=== PATIENT | male | born 1985 | race Caucasian/White ===

== ENCOUNTER → 2017-10-17 | Emergency (ER) | payer OTHER ==
[~2017-10-17] VITALS: Ht 182.9 cm; Wt 104.3 kg
[~2017-10-17] MED LIST: AMITRIPTYLINE H10 MG PO; BACTRIM DS TAB1 EACH PO; CARAFATE1 GM/10 ML PO; CEPHALEXIN500 MG PO; CLINDAMYCIN HC300 MG PO; CYCLOBENZAPRINE10 MG PO; FLEXERIL10 MG PO; IBUPROFEN800 MG PO; KETOPROFEN75 MG PO; MEDROL4 M1 PO; METHOCARBAMOL500 MG PO; NAPROXEN500 MG PO; NORCO 5-325 TA1 EACH PO; NORCO 7.5-3251 EACH PO; ONDANSETRON ODT8 MG PO; OXYCODONE HCL10 MG PO; OXYCODONE-ACET1 EAC1 PO; PERCOCET 10-321 EACH PO; PERCOCET 5-3251 EACH PO; PROVENTIL HFA6.7 GM INH; PSEUDOEPHEDRINE60 MG PO; ROXICODONE15 MG PO; SEPTRA DS TABL1 EACH PO; SUBOXONE 8 MG-1 EAC1 SL; TAMSULOSIN HCL0.4 MG PO; TRAMADOL HCL50 MG PO; TRIAMCINOLONE A15 GM TOP; ULTRAM50 MG PO; VICODIN 5-5001 EACH PO; ZOFRAN4 MG PO; [UNRECOGNIZED DRUG - OTHER] TP
== END ==
LOC: ED 19:13
DX: R10.9 Unspecified abdominal pain (principal); Z87.442 Personal history of urinary calculi; F17.200 Nicotine dependence, unspecified, uncomplicated; Z88.0 Allergy status to penicillin; Z88.6 Allergy status to analgesic agent; Z88.1 Allergy status to other antibiotic agents; Z79.899 Other long term (current) drug therapy
CPT/HCPCS: 81001; 99283

== ENCOUNTER 2017-11-16 11:41 | Emergency (ER) | payer OTHER ==
[~2017-11-16] VITALS: Ht 182.9 cm; Wt 104.3 kg
[~2017-11-16 11:41] MED LIST changes: -IBUPROFEN800 MG PO; -ONDANSETRON ODT8 MG PO
[2017-11-16] MEDS ORDERED: IBUPROFEN800 MG PO (11:59)
[2017-11-16] MEDS ORDERED: ONDANSETRON ODT8 MG PO (14:48)
== END 2017-11-16 15:06 | disposition home or self-care (01) ==
LOC: ED 11:41
DX: M54.41 Lumbago with sciatica, right side (principal); F17.200 Nicotine dependence, unspecified, uncomplicated; Z87.442 Personal history of urinary calculi; Z86.19 Personal history of other infectious and parasitic diseases; Z88.0 Allergy status to penicillin; Z88.5 Allergy status to narcotic agent; Z88.1 Allergy status to other antibiotic agents
CPT/HCPCS: 80053; 81001; 85025; 96374; 99283; J2405; J7030

== ENCOUNTER 2018-12-03 00:05 | Emergency (ER) | payer OTHER ==
[~2018-12-03 00:05] MED LIST changes: +IBUPROFEN800 MG PO; +ONDANSETRON ODT8 MG PO
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
== END 2018-12-03 02:50 | disposition home or self-care (01) ==
LOC: ED 00:05
DX: T14.8XXA Other injury of unspecified body region, initial encounter (principal); V89.2XXA Person injured in unspecified motor-vehicle accident, traffic, initial encounter; Z87.891 Personal history of nicotine dependence; Z88.0 Allergy status to penicillin; Z88.6 Allergy status to analgesic agent; Z88.1 Allergy status to other antibiotic agents; Z79.899 Other long term (current) drug therapy
CPT/HCPCS: 70450; 71260; 72125; 73090; 73560; 74177; 80053; 82150; 82550; 83690; 85025; 86850; 86900; 86901; 99284-25; G0480; Q9967

== ENCOUNTER 2019-09-09 22:41 | Inpatient (IN) | payer OTHER ==
[~2019-09-09] VITALS: Ht 182.9 cm; Wt 150.9 kg
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
--- NOTE | 2019-09-10 00:55 | NUR ---
PT REPORT RECEIVED FROM ELECTRICAL APPLIANCE REPAIRER. PT BROUGHT TO CCU ON [employer]AYER WITH FELLER OPERATOR AND . PT HAS CELL PHONE AND CLOTHES, ALL OTHER BELONGINGS WITH .
--- NOTE | 2019-09-10 01:43 | NUR ---
INITIAL ASSESSMENT COMPLETED. PT HAS TEMPERATURE OF 103.2, HEART RATE AT 104 ON THE MONITOR. BLITATERAL LOWER LEGS HAVE 2+ EDEMA, REDDNESS, PAINFUL, AND WARM TO TOUCH. BOTH CALVES MEASURE 49 CM. REDDNESS TRAVELS UP INTO THIGHS. A REDDENED AREA ON INNER LEFT THIGH, AND INNER RIGHT THIGH BY GROIN. ALL REDDENED AREAS OUTLINED. PT ORIENTED TIME 4, BUT VERY DROWSY AND UNABLE TO STAY AWAKE FOR ASSESSMENT. ALL QUESTIONS ANSWERED BY . PRN TYLENOL GIVEN. CALL LIGHT WITHIN REACH. REMAINS AT BEDSIDE. WILL CONTINUE TO CLOSELY MONITOR.
--- NOTE | 2019-09-10 02:30 | NUR ---
PT STOOD TO VOID, 2 PERSON ASSIST REQUIRED. PT GOT WRAPPED IN HIS CORD AND BECAME UPSET. TOOK OFF GOWN AND BLOOD PRESSURE CUFF. BACK IN BED AT THIS TIME. BLOOD PRESSURE CUFF BACK ON. AT BEDSIDE. NO FURTHER NEEDS.
--- NOTE | 2019-09-10 04:19 | NUR ---
IN ROOM FOR ASSESSMENT. PT AWOKE FOR TEMPERATURE BUT SLEPT THROUGH THE REST OF ASSESSMENT. LUNGS SOUND DIMINISHED IN THE BASES. PT COLOR REMAINS FLUSHED, BUT NO LONGER DIAPHORETIC. RESPIRATIONS EVEN AND UNLABORED RR= 20. REMAINS AT BEDSIDE. CALL LIGHT WITHIN REACH. WILL CONTINUE TO MONITOR
--- NOTE | 2019-09-10 04:44 | NUR ---
PT STANDING AT BEDSIDE TO VOID. ONE PERSON STAND BY REQUIRED. PT MORE ALERT, LESS DROWSY AT THIS TIME. BACK IN BED. NO FURTHER NEEDS AT THIS TIME.
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
--- NOTE | 2019-09-10 09:00 | NUR ---
DR. HUIZAR HERE TO SEE PATIENT. PATIENT DIFFICULT TO AWAKEN. SLOW TO RESPOND TO QUESTIONS. WILL HOLD BREAKFAST AT THS TIME.
--- NOTE | 2019-09-10 09:20 | NUR ---
RESP RATE >30, O2 TO OXYMASK AT [address] HUIZAR AWARE. CPAP ORDERED.
[2019-09-10] MEDS ORDERED: BUPRENORPHIN-N1 EACH SL (09:58)
--- NOTE | 2019-09-10 10:00 | NUR ---
STOOD AT BEDSIDE TO VOID 500 ML OF ELAINE URINE. IS FAIRLY STALBLE ON FEET. IS CURRENTLY ON RA, SAT 92. IS ALERT AND ORIENTED, COOPERATIVE. USING SMALL AMOUNT OF NS TO IRRIGATE NOSE. STATES HE IS FEELING BETTER RIGHT NOW. TALKING WATER WELL.
--- NOTE | 2019-09-10 10:15 | NUR ---
SITTING AT BEDSIDE. ON OXYMASK AT 6 L.
--- NOTE | 2019-09-10 10:30 | NUR ---
LAYING DOWN IN BED. REMAINS ON OXYMASK AT 6 L OXYMASK.
--- NOTE | 2019-09-10 12:00 | NUR ---
MODIFIED ASSESSMENT DONE. PATIENT IS ASLEEP, LAYING ON BACK. AX TEMP-99.9. DIAPHORETIC. RESP ARE EQUAL AND NON-LABORED. IS IN ROOM
--- NOTE | 2019-09-10 13:29 | NUR ---
CONTINUES TO SLEEP. NO DISTRESS NOTED. IVF REMAIN AT 200 ML/HR. NO CHANGES IN LEGS FAR COLOR AND TEMP. ATTEMPTIG TO ELEVATE LEGS ON PILLOWS, THIS DIFFICULT PATIENT MOVES AROUND IN BED.
--- NOTE | 2019-09-10 14:12 | NUR ---
BOTH PT AND FAST ASLEEP. RN DOROTHY COLUNGA SUGGESTED I LET THEM BOTH SLEEP, WILL FOLLOW NEEDED
--- NOTE | 2019-09-10 16:24 | NUR ---
PT SLEEPING RN IN CCU REQUESTED NOT TO BOTHER PT AT THIS TIME. WILL CHECK BACK TOMORROW.
--- NOTE | 2019-09-10 17:20 | NUR ---
AWAKE. STOOD AT BEDSIDE TO VOID 800 ML OF ELAINE URINE. C/O SEVERE ZEE 03/05. REQUESTING MOTRIN.
--- NOTE | 2019-09-10 17:55 | NUR ---
MOTRIN 600 MG PO GIVEN FOR ZEE. IS COOPERATIVE. IVF REMAIN AT 200 ML/HR.
--- NOTE | 2019-09-10 18:05 | NUR ---
DR. HUIZAR IN ROOM TALKING WITH PATIENT.
--- NOTE | 2019-09-10 18:17 | NUR ---
CONTINUE TO SIT AT BEDSIDE.
--- NOTE | 2019-09-10 18:35 | NUR ---
SITTING IN CHAIR TO EAT DINNER, TV ON.
--- NOTE | 2019-09-10 19:00 | NUR ---
BACK TO BED WITH ASSIST. T-99.8.
--- NOTE | 2019-09-10 19:29 | NUR ---
REPORT TO NEXT SHIFT. FAMILY MEMBERS ARE IN ROOM.
--- NOTE | 2019-09-10 19:30 | NUR ---
RECEIVED REPORT FROM DAY SHIFT, RNS. pt RESTING IN BED, DID NOT WAKE TO GENTLE VOICE, DAUGHTER LAYING NEXT TO pt. AT BEDSIDE. WHITEBOARD UPDATED. CALL LIGHT WITHIN REACH.
--- NOTE | 2019-09-10 20:46 | NUR ---
CALL LIGHT ON. EQUIPMENT ALARMING, ISSUE RESOLVED. ASSESSMENT DONE. pt REPORTED "I JUST DON'T FEEL WELL" PAIN 02/03. REFUSED SUBOXONE AT THIS TIME. OTHER MEDICATION ADMINISTERED (SEE MAR). FLUID RATE CHANGED PER ORDERS. URINAL EMPTIED. ROOM TIDIED. NO REQUESTS AT THIS TIME. CALL LIGHT WITHIN REACH.
--- NOTE | 2019-09-10 21:19 | NUR ---
SCHEDULED ABX INFUSING (SEE MAR). pt RESTING WITH EYES CLOSED, OCCASSIONALLY COUGHING. CALL LIGHT WITHIN REACH.
--- NOTE | 2019-09-10 21:56 | NUR ---
ROUNDED ON pt. RESTING WITH EYES CLOSED, RESPIRATIONS REGULAR AND UNLABORED. CALL LIGHT WITHIN REACH.
--- NOTE | 2019-09-10 23:17 | NUR ---
ROUNDED ON pt. RESTING IN BED, EYES CLOSED, RESPIRATIONS REGULAR. CALL LIGHT WITHIN REACH.
--- NOTE | 2019-09-11 00:20 | NUR ---
pt RESTING IN BED. PROVIDED FOOD PER REQUEST. ASSESSMENT DONE. URINAL EMPTIED. AT BEDSIDE. PRN MED GIVEN FOR 7/10 PAIN "HEADACHE AND ALL OVER" NO FURTHER REQUESTS AT THIS TIME. CALL LIGHT WITHIN REACH.
--- NOTE | 2019-09-11 01:21 | NUR ---
IV ABX INFUSING (SEE MAR). pt REPORTED PAIN REMAINS AT 7/10 REFUSING TYLENOL AT THIS TIME. WILL CALL IF HE NEEDS MEDICATION. AT BEDSIDE. CALL LIGHT WITHIN REACH.
--- NOTE | 2019-09-11 02:39 | NUR ---
ROUNDED ON pt. RESTING WITH EYES CLOSED, RESPIRATIONS REGULAR. AT BEDSIDE. CALL LIGHT WITHIN REACH.
--- NOTE | 2019-09-11 03:28 | NUR ---
ROUNDED ON pt. EMPTIED URINAL. NO REQUESTS AT THIS TIME. CALL LIGHT WITHIN REACH.
--- NOTE | 2019-09-11 04:40 | NUR ---
ROUNDED ON pt. RESTING WITH EYES CLOSED, RESPIRATIONS REGULAR AND UNLABORED. CALL LIGHT WITHIN REACH.
--- NOTE | 2019-09-11 05:15 | NUR ---
pt RESTING WITH EYES CLOSED, DID NOT WAKE TO GENTLE VOICE. TEMP TAKEN. CALL LIGHT WITHIN REACH.
--- NOTE | 2019-09-11 06:38 | NUR ---
ROUNDED ON pt. RESTING WITH EYES CLOSED, TITRATED O2 TO 2L VIA OXYMASK. CALL LIGHT WITHIN REACH.
--- NOTE | 2019-09-11 07:12 | NUR ---
O2 100% ON 2L TITRATED DOWN TO 1L VIA OXYMASK
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
--- NOTE | 2019-09-11 10:26 | NUR ---
informed patient and his of eventual transfer to medical floor today. pt resting with eyes closed at this time. IVF infusing and vanco infusing now as well into RAC IV. television on. on telephone sitting on couch by window. pt reports headache feels a little better now.
--- NOTE | 2019-09-11 11:47 | NUR ---
transferred patient to room 117 at 1135. at bedside. lunch ordered for patient and explained changes from CCU floor to Med/Surg floor. Also explained that a PICC line nurse would be by later today to place a line and that he should expect to get 2 weeks of IV antibiotic therapy. unsure if as swing bed or outpatient yet.
--- NOTE | 2019-09-11 12:25 | NUR ---
PT ARRIVED TO FLOOR VIA BED. PAIN 6/10 TO BILAT LE. 2L OXYMASK PLACED FOR PT COMFORT. 3+ EDEMA TO BILAT LE. PULSES +2. YESENIAS N/T. ERETHEMA OUTLINED, RLE HOT TO THE TOUCH. BREATHING NONLABORED. LUNGS CLEAR. VANCO INFUSING. ORIENTED TO ROOM.
--- NOTE | 2019-09-11 14:30 | NUR ---
DR HUIZAR CALLED TO CHANGE HOME MEDICATION TIME SUBOXONE TO PRN, PER PT REQUEST. DR HUIZAR OKAY'D CHANGE. PHARMACY CALLED. ORDER CAHNGED.
--- NOTE | 2019-09-11 16:27 | NUR ---
ATTEMPTED TO GO IN AND TALK WITH PT. SURGICAL STAFF IN ROOM WITH PT AND HE IS HAVING A PICC LINE PLACED. I WILL RETURN ANOTHER TIME FOR PT TEACHING.
--- NOTE | 2019-09-11 17:00 | NUR ---
PT REPORTING 7/10 HEADACHE. PRN PAIN MEDICATION GIVEN. NAIN LEAL. DINNER AT BEDSIDE. CALL LIGHT I NREACH/ DENEIS NEEDS.
--- NOTE | 2019-09-11 17:00 | NUR ---
Attempted to see pt earlier, PICC line was being placed.
--- NOTE | 2019-09-11 17:25 | NUR ---
MIDLINE INSERTION NOTE WAS ASKED TO ASSESS THE PT FOR ANTIBIOTIC THERAPY THAT WILL TAKE PLACE OVER 2 WEEKS. IT WAS DISCUSSED WITH DR. RETANA ABOUT THE PT PREVIOUS HISTORY OF OPIATE ABUSE AND CURRENTLY TAKING SUBOXONE WITH POTENTIALLY GOING HOME WITH IV ACCESS. THE PT STATES HE DOES NOT USE IV DRUGS AND NEVER HAS. DR. RETANA DOES WANT THE MIDLINE PLACED. VERBAL CONSENT WAS OBTAINED FROM THE PT AFTER DISCUSSING THE RISKS AND BENEFITS WITH THE PT. THE PT'S LEFT ARM WAS EXAMINED WITH ULTRASOUND. THE LEFT BASILIC, BRACHIAL, AND CEPHALIC VEINS WERE IDENITFIED ALONG WITH THE BRACHIAL ARTERY. THE BASILIC VEIN WAS CHOSEN THE BEST OPTION. THE VEIN IS ABOUT 1 CM DOWN AND LARGER THAN AN 8 DIVEHI. THE VEIN WAS ACCESSED ON THE FIRST INSERTION. THE GUIDEWIRE, INTRODUCER, AND MIDLINE ADVANCED UP THE VEIN EASILY. RED, NON- PULSITILE BLOOD RETURNED FROM THE IV AND INTRODUCER. THE PT TOLERATED THE PROCEDURE WELL. PRESSURE DRESSING APPLIED AFTER THE STERILE DRESSING WAS APPLIED. PT'S RN GIVEN REPORT.
--- NOTE | 2019-09-11 19:57 | NUR ---
PATIENT SITTING UP IN BED WATCHING TV, LEGS ELEVATED, FAMILY AT BEDSIDE. NO CURRENT NEEDS.
--- NOTE | 2019-09-11 22:23 | NUR ---
PT'S IV PUMP WAS BEEPING, IT IS NOW INFUSING FINE. HE DENIES NEEDS AT THIS TIME. CALL LIGHT IS WITHIN REACH.
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
--- NOTE | 2019-09-12 00:49 | NUR ---
PATIENT'S RAC IV WAS LEAKING A LITTLE, BUT NOT INFILTRATED AND WAS DC'D INTACT. IV NOW RUNNING THROUGH MIDLINE WHICH DRAWS AND FLUSHES WELL. FAMILY AT BEDSIDE. CALL LIGHT AND ORAL FLUIDS IN REACH.
--- NOTE | 2019-09-12 02:36 | NUR ---
PATIENT RESTING QUIETLY, IV INFUSING WITHOUT DIFFICULTY, CALL LIGHT IN REACH, EYES CLOSED. FAMILY AT BEDSIDE.
--- NOTE | 2019-09-12 04:30 | NUR ---
PATIENT HAS BEEN AWAKE MOST OF THE NIGHT, NO C/O PAIN. RESTING FINALLY AT THIS TIME. FAMILY AT BEDSIDE. BILAT LOWER LEGS ELEVATED AON PILLOWS DUE TO SWELLING/EDEMA. PATIENT HAS USED 2L/OXYMASK AT TIMES SINCE BEFORE MY SHIFT STARTED, HE SAYS HE JUST FEELS A LITTLE SHORT OF BREATH AT TIMES A THE 2L/ OXY MASK MAKES HIM FEEL BETTER EVEN THOUGH HIS SATS STAY FINE.RAC IV STARTED LEAKING AND HAD TO BE DC'D WITHOUT COMPLICATIONS AND MAINLINE FLUIDS NOW RUNNING IN MIDLINE SITE WITHOUT COMPLICATIONS. CALL LIGHT IN REACH.
--- NOTE | 2019-09-12 06:40 | NUR ---
VITALS AND I&OS DONE AND CHARTED. FRESH ICE WATER AND APPLE JUICE GIVEN. GARBAGES EMPTIED AND ROOM CLEANED. BEDSIDE TABLE AND CALL LIGHT IN REACH. PT NEEDS NOTHING MORE AT THIS TIME.
--- NOTE | 2019-09-12 07:15 | NUR ---
Recieved report. Patient in bed resting with eyes closed. Respirations equal and unlabored. and daughter present in room. Call light in reach. LR running at 75ml/hr. BLE elevated on pillows.
--- NOTE | 2019-09-12 10:00 | NUR ---
SPOKE WITH PATIENT IN ROOM. PATIENTS IS ASLEEP ON SOFA. DAUGHTER IS IN CHAIR. PATIENT STATES HE FEELS BETTER TODAY. PATIENT STILL PLANS TO DISCHARGE WITH FAMILY AND FEELS SAFE WITH THIS PLAN. STAFF IN TO DO CARE, WILL RETURN ANOTHER TIME TO DISCUSS FURTHER DETAILS WHEN KNOWN. PATIENT HAS NO SPECIFIC QUESTIONS AT THIS TIME.
--- NOTE | 2019-09-12 10:44 | NUR ---
Patient sitting up in bed. Just finishing breakfast. Patients daughter and in room. Patient reports headache and leg pain. Motrin administered for slight fever and pain. LR running at 75ml/hr. Lovenox administered per orders. Patient expressed desire to discharge to home today, stating that he needs to get back to work. Midline catheter patent and WNL. Call light within reach.
--- NOTE | 2019-09-12 12:00 | NUR ---
MED REC COMPLETE.
--- NOTE | 2019-09-12 14:09 | NUR ---
DR RETANA IN TO ROUND ON PT. PLAN OF CARE DISCUSSED. QUESTIONS ANSWERED.
--- NOTE | 2019-09-12 15:27 | NUR ---
YESTERDAY I SET PATIENT'S SHOWER UP SO HE COULD TAKE A SHOWER. PATIENT IS IN ROOM. HE SAID HE WOULD TAKE A SHOWER AFTER DINNER LAST NIGHT BUT HE TOLD ME TODAY THIS MORNING THAT HE WAS TO TIRED LAST NIGHT. SO TODAY HE TOOK A SHOWER.
--- NOTE | 2019-09-12 16:20 | NUR ---
STERILE DRESSING CHANGE TO MIDLINE. PT TOLERATED WELL. HEP LOCKED. DISCHARGE INSTRUCTIONS PROVIDED. VITALS TAKEN AND STABLE.
== END 2019-09-12 14:45 | disposition home or self-care (01) | DRG 872 ==
LOC: ED 22:41 → CCU 22:43 → ED 22:43 → CCU 09-10 01:19 → MS 09-11 11:35
PROVIDERS: ADMIT Internal Medicine
PROC: 05HY33Z Insertion of Infusion Device into Upper Vein, Percutaneous Approach (ICD-10-PCS; principal; 2019-09-11 17:00)
DX: A41.02 Sepsis due to Methicillin resistant Staphylococcus aureus (principal); L03.115 Cellulitis of right lower limb; F11.20 Opioid dependence, uncomplicated; Z68.42 Body mass index [BMI] 45.0-49.9, adult; E66.01 Morbid (severe) obesity due to excess calories; G47.33 Obstructive sleep apnea (adult) (pediatric); Z87.891 Personal history of nicotine dependence; Z88.1 Allergy status to other antibiotic agents; Z88.0 Allergy status to penicillin; Z88.5 Allergy status to narcotic agent
CPT/HCPCS: 36415; 36569; 71045; 80048; 80053; 80069; 80202; 81001; 83605; 85025; 94660; 96361; 96365; 96366; 99285-25; A9270; J0878; J1650; J3370; J7030; J7060; J7121

== ENCOUNTER 2019-10-28 10:44 | Emergency (ER) | payer OTHER ==
[~2019-10-28] VITALS: Ht 182.9 cm; Wt 104.3 kg
[~2019-10-28 10:44] MED LIST changes: +BUPRENORPHIN-N1 EACH SL
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
[2019-10-28] MEDS ORDERED: DOXYCYCLINE HY100 MG PO (12:48)
== END 2019-10-28 13:07 | disposition home or self-care (01) ==
LOC: ED 10:44
DX: L03.115 Cellulitis of right lower limb (principal); Z88.0 Allergy status to penicillin; Z88.6 Allergy status to analgesic agent; Z88.1 Allergy status to other antibiotic agents
CPT/HCPCS: 99283

== ENCOUNTER 2019-12-29 23:59 | Inpatient (IN) | payer OTHER ==
[~2019-12-29] VITALS: Ht 182.9 cm; Wt 154.7 kg
[~2019-12-29 23:59] MED LIST changes: +DOXYCYCLINE HY100 MG PO
--- OUTSIDE RECORDS SUMMARY | 2019-12-30 00:02 | XMS ---
PreManage Notification: NORMA BECERRA Security Aircraft Maintenance Engineer Events No recent Security Events currently on file CRITERIA MET - Group Notification - History of Sepsis Dx - PDMP CARE PROVIDERS GARLAND DHILLON Physician Nursing Service Director 07/08/2018-Current PHONE: [phone] Ayaka has no Care Guidelines for this patient. Care History Medical/Surgical 10/29/2019 [facility] EOIPA CASE MANAGEMENT REFERRAL MADE- PATIENT HAS EOCCO AND NEEDS FURTHER CASE MANAGEMENT FOLLOW UP. 11/19/2017 [facility] Care Recommendation: This patient has had 5 or more Emergency Department visits in the last 12 months. Patient requires education on the scope and purpose of the ED as an acute care provider not a Primary Care Provider and should not be utilized for chronic conditions. If patient returns to ED please contact Community Health WorkerGricelda at [phone]. These are guidelines and the provider should exercise clinical judgment when providing care. E.D. VISIT COUNT (12 MO.) 1 [facility] TOTAL 5 NOTE: Visits indicate total known visits. ED/UCC VISIT TRACKING (12 MO.) 12/30/2019 00:01 [facility] [place] TYPE: Emergency COMPLAINT: - OVERHEATED/JOINT NUMBNESS 10/28/2019 10:45 [facility] [place] TYPE: Emergency COMPLAINT: - R LEG PAIN DIAGNOSES: - Allergy status to analgesic agent status - Cellulitis of right lower limb - Allergy status to penicillin - Fever, unspecified - Allergy status to other antibiotic agents status 09/09/2019 22:42 [facility] [place] TYPE: Emergency [...] Cellulitis of right lower limb - Other superintendent container terminal (current) drug therapy 02/09/2019 03:41 [facility] [place] TYPE: Emergency DIAGNOSES: - Skin Redness With Swelling - Cellulitis of right lower limb - Leg Wound INPATIENT VISIT TRACKING (12 MO.) 09/10/2019 01:19 [facility] [place] TYPE: Medical Surgical COMPLAINT: - SEPSIS SECONDARY TO CELLULITIS DIAGNOSES: - Sepsis, unspecified organism - Body mass index (BMI) 45.0-49.9, adult - Opioid dependence, uncomplicated - Cellulitis of right lower limb - Morbid (severe) obesity due to excess calories - Allergy status to other antibiotic agents status - Personal history of nicotine dependence - Allergy status to penicillin - Allergy status to narcotic agent status - Sepsis due to Methicillin resistant Staphylococcus aureus - Obstructive sleep apnea (adult) (pediatric) [facility] [place] [facility] DIAGNOSES: - Personal history of other specified conditions - Other chronic pain - Sepsis, unspecified organism - Other specified soft tissue disorders - Cellulitis of right lower limb [email or web address]
--- NOTE | 2019-12-30 13:09 | EKG ---
[facility] [address] [place], [place] [address] Signed Normal sinus rhythm Normal ECG When compared with ECG of 10-OCT-2019 11:49, No significant change was found Confirmed by MARYANN RETANA DO ([id number]) on 12/30/2019 1:09:13 PM Electronically Signed By: MARYANN RETANA DO 12/30/19 1309 PATIENT NAME: MARIAMNORMA JACKIE Electrocardiogram DATE OF : 83 PHYSICIAN: MARYANN RETANA DO REPORT #: [id number] REPORT IS CONFIDENTIAL AND NOT TO BE RELEASED WITHOUT AUTHORIZATION
[2020-01-01] MEDS ORDERED: FLUCONAZOLE100 MG PO (13:11)
[2020-01-01] MEDS ORDERED: DOXYCYCLINE HY100 MG PO (13:11)
== END 2020-01-01 14:15 | disposition home or self-care (01) | DRG 872 ==
LOC: ED 23:59 → MS 12-30 00:02
PROVIDERS: ADMIT Student in an Organized Health Care Education/Training Program
DX: A41.9 Sepsis, unspecified organism (principal); L03.115 Cellulitis of right lower limb; F11.20 Opioid dependence, uncomplicated; Z68.42 Body mass index [BMI] 45.0-49.9, adult; R07.89 Other chest pain; E66.01 Morbid (severe) obesity due to excess calories; G47.33 Obstructive sleep apnea (adult) (pediatric); B35.4 Tinea corporis; Z87.891 Personal history of nicotine dependence; Z86.19 Personal history of other infectious and parasitic diseases; Z79.2 Long term (current) use of antibiotics; Z88.0 Allergy status to penicillin; Z88.5 Allergy status to narcotic agent; Z88.1 Allergy status to other antibiotic agents
CPT/HCPCS: 36415; 71045; 80048; 80053; 80202; 81001; 83605; 83735; 84484; 85025; 85610; 85730; 93005; 93010; 94762; 96361; 96374; 96375; 99285-25; G0378; J0696; J1650; J3370; J7060; J7121; U0002

== ENCOUNTER 2020-12-13 18:37 | Inpatient (IN) | payer OTHER ==
[~2020-12-13] VITALS: Ht 182.9 cm; Wt 154.0 kg
[~2020-12-13 18:37] MED LIST changes: +FLUCONAZOLE100 MG PO
--- OUTSIDE RECORDS SUMMARY | 2020-12-13 18:40 | XMS ---
PreManage Notification: NORMA BECERRA Security Display Associate Events No recent Security Events currently on file CRITERIA MET - Group Notification - History of Sepsis Dx - PDMP CARE PROVIDERS GARLAND DHILLON Physician Dry Heat Cabinet Attendant 07/08/2018-Current PHONE: [phone] Ayaka has no Care Guidelines for this patient. Care History Medical/Surgical 10/29/2019 [facility] EOIPA CASE MANAGEMENT REFERRAL MADE- PATIENT HAS EOCCO AND NEEDS FURTHER CASE MANAGEMENT FOLLOW UP. 11/19/2017 [facility] Care Recommendation: This patient has had 5 or more Emergency Department visits in the last 12 months. Patient requires education on the scope and purpose of the ED as an acute care provider not a Primary Care Provider and should not be utilized for chronic conditions. If patient returns to ED please contact Community Health WorkerGricelda at [phone]. These are guidelines and the provider should exercise clinical judgment when providing care. E.D. VISIT COUNT (12 MO.) 2 [facility] TOTAL 2 NOTE: Visits indicate total known visits. ED/UCC VISIT TRACKING (12 MO.) 12/13/2020 18:37 [facility] [place] TYPE: Emergency COMPLAINT: - LEG PAIN 12/30/2019 00:01 [facility] [place] TYPE: Emergency COMPLAINT: - OVERHEATED/JOINT NUMBNESS INPATIENT VISIT TRACKING (12 MO.) 12/30/2019 08:[address] [facility] [place] TYPE: Medical Surgical COMPLAINT: - CELLULITIS DIAGNOSES: - Allergy status to other antibiotic agents - Cellulitis of right lower limb - Other chest pain - Opioid dependence, uncomplicated - buttermaker (current) use of antibiotics - Personal history of nicotine dependence - Personal history of nicotine dependence - Allergy status to narcotic agent - Cellulitis of right lower limb - Tinea corporis - assisted (current) use of antibiotics - Allergy status to other antibiotic agents - Personal history of other infectious and parasitic diseases - Obstructive sleep apnea (adult) (pediatric) - Morbid (severe) obesity due to excess calories - Sepsis, unspecified organism - Obstructive sleep apnea (adult) (pediatric) - Other chest pain - Tinea corporis - Contact with and (suspected) exposure to other viral communicable diseases - Allergy status to penicillin - Body mass index [BMI] 45.0-49.9, adult - Body mass index [BMI] 45.0-49.9, adult - Personal history of other infectious and parasitic diseases - Allergy status to narcotic agent - Opioid dependence, uncomplicated - Allergy status to penicillin - Morbid (severe) obesity due to excess calories [email or web address]
--- NOTE | 2020-12-13 23:40 | NUR ---
PT ARRIVED TO UNIT VIA STRETCHER AND WAS BROUGHT DOWN BY AN RN. PT TRANSPORTED ONTO BED WITH THE HELP OF 2 OTHER RNS AND SECURITY. PT PLACED ON 2L O2 NC TO MAINTAIN SATURATIONS ABOVE 90% PT SPO2 WAS AROUND 89-90%. IV ABX STARTED AT THIS TIME. PT ASSESSED AT THIS TIME AND IS DROWSY/CONFUSED WHEN AWAKE AND HAS GARBLED SPEECH. PT LEGS ARE RED, HOT AND EDEMATOUS. REDDNESS IS PRESENT ON THE INNER THIGHS/GROIN, DOWN TO THE LEGS, AND ENDS AT THE ANKLES BILATERALLY. FEET ARE ALSO EDEMATOUS WITH THREADY PULSES. RADIAL PULSES STRONG, CAPILLARY REFILL UNDER 3 SECONDS. VITALS TAKEN, TEMPERATURE IS ELEVEATED AT 102.[address] HELM. PT LAYING IN BED SLEEPING/RESTING, BED IN LOWEST POSITION, IV ABX INFUSING ORDERED, WILL CONTINUE PLAN OF CARE.
--- NOTE | 2020-12-13 23:46 | NUR ---
DR HELM UPDATED ON PT AND NOTIFIED OF PT'S ELEVATED TEMPERATURE OF 102.2 ORAL. NEW ORDERS PLACED FOR TYLENOL SUPPOSITORY AND AN ADDITION BOLUS OF LR, WILL CONTINUE PLAN OF CARE.
--- NOTE | 2020-12-14 00:32 | EKG ---
[facility] [address] [place], [place] [address] Signed Sinus tachycardia Incomplete right bundle branch block Borderline ECG When compared with ECG of 30-DEC-2019 08:15, No significant change was found Confirmed by RADHA HELM MD ([id number]) on 12/14/2020 12:31:51 AM Electronically Signed By: RADHA HELM MD 12/14/20 0032 PATIENT NAME: NORMA BECERRA Electrocardiogram DATE OF : 83 PHYSICIAN: RADHA HELM MD REPORT #: [id number] REPORT IS CONFIDENTIAL AND NOT TO BE RELEASED WITHOUT AUTHORIZATION
--- NOTE | 2020-12-14 01:30 | NUR ---
THIS RN IN TO ASSESS PT, ADDITIONAL IV MEDICATION STARTED AND NOW INFUSING (SEE MAR). PT WAS ABLE TO WAKE UP MOMENTARILY AND WAS ORIENTED TO SELF, AND LOCATION. PT WAS ABLE TO FOLLOW THIS RNS FINGERS WITH HIS EYES WHEN ASKED AND WAS ABLE TO FOLLOW COMMANDS. PT RETURNED BACK TO SLEEP SHORTLY AFTER ASSESSING. BED IN LOWEST POSITION, IVF AND IV ABX INFUSING ORDERED, CRAIG DRAINING, WILL CONTINUE PLAN OF CARE.
--- NOTE | 2020-12-14 04:00 | NUR ---
THIS RN IN TO CHECK ON PT, PT LAYING IN BED SLEEPING BUT AWOKE WHEN READJUSITNG BLOOD PRESSURE CUFF. PT ASKED ORIENTATION QUESTIONS AND WAS ORIENTED TO SELF, LOCATION, BUT NOT EVENT AND COULD ONLY RECALL THAT HE WAS HAVING PAIN THE DAY BEFORE HE WAS ADMITTED. PT RETURNED BACK TO SLEEP SHORTLY AFTER. WILL CONTINUE PLAN OF CARE, IVF INFUSING ORDERED, BED IN LOWEST POSITION.
--- NOTE | 2020-12-14 04:57 | NUR ---
THIS RN IN TO ASSESS PT. PT LAYING IN BED SLEEPING, AUDIBLE SNORING HEARD, RESPIRATIONS EVEN AND UNLABORED. PT ON 2L O2 NC SPO2 AT 95%, TEMP IS 99.5 TEMPORAL. PT ASSESSED AT THIS TIME, CELLULITIS/REDNESS MORE APPARENT ON LEFT LEG THAN RIGHT AND GOES HIGHER UP ON THE INNER THIGH/GROIN THAN THE RIGHT LEG. RADIAL PULSES STRONG, PEDAL +1, CAP REFILL UNDER 3 SECONDS. PT IN NO APPARENT DISTRESS AT THIS TIME, IVF INFUSING ORDERED, WILL CONTINUE PLAN OF CARE. BED IN LOWEST POSITION.
--- NOTE | 2020-12-14 05:21 | NUR ---
THIS RN IN TO CHECK ON PT. PT LAYING IN BED SLEEPING, RESPIRATIONS EVEN AND UNLABORED, PT SPO2 AT 97% ON 2L O2 NC. IVF INFUSING ORDERED. PT CRAIG BAG CHANGED TO ONE WITH A UROMETER. WILL CONTINUE PLAN OF CARE.
--- NOTE | 2020-12-14 06:19 | NUR ---
THIS RN IN TO CHECK ON PT. PT LAYING IN BED SLEEPING. PT AWOKE TO VOICE. PT ORIENTED TO SELF AND LOCATION. PT ABLE TO TAKE A FEW SIPS OF WATER WITHOUT DIFFICULTY. PT TEMPERATURE WAS 100.3 AND WAS GIVEN PRN TYLENOL PO. PT WAS ABLE TO TAKE PO TYLENOL WITHOUT DIFFICULTY AND EVEN ASKED TO BE SAT UP IN ORDER TO TAKE HIS PILLS. PT RETURNED BACK TO SLEEP AFTERWARDS. IVF INFUSING, IV ABX INFUSING, WILL CONTINUE PLAN OF CARE. BED IN LOWEST POSITION, WILL CONTINUE PLAN OF CARE.
--- NOTE | 2020-12-14 08:00 | NUR ---
IN TO ASSESS PATIENT AND EMPTY CRAIG CATHETER. PATIENT RESTING IN BED. PATIENT RESPONDS TO VERBAL COMMANDS. PATIENT IS ORIENTED TO SELF AND PLACE. HR REMAINS IN THE 80'S, RESPIRATION ARE EVEN AND UNLABORED. PATIENT IS SATING 98% ON RA. PATIENT HAS COMPLAINTS OF PAIN IN LEGS. PATIENT HAS NO OTHER COMPLAINTS AT THIS TIME.
--- NOTE | 2020-12-14 08:25 | NUR ---
IN TO SEE PATIENT. PATIENT RESTING IN BED, BUT WILL RESPOND TO VERBAL COMMANDS. IV ABX STARTED IN THE LT AC. PATIENT HAS NO COMPLAINTS AT THIS TIME.
--- NOTE | 2020-12-14 09:11 | NUR ---
IN TO EMPTY CRAIG CATHETER. PATIENT RESTING IN BED WITH NO COMPLAITNS. PATIENT HR IN THE 80'S, RESPIRATIONS ARE EVEN AND UNLABORED. OXYGEN SATURATION AT 96% ON 1 LITER NC.
[2020-12-14] MEDS ORDERED: FEROSUL325 MG PO (09:33)
[2020-12-14] MEDS ORDERED: HYDROCHLOROTHIA25 MG PO (09:33)
[2020-12-14] MEDS ORDERED: NARCAN4 MG NAS (09:36)
--- NOTE | 2020-12-14 09:51 | NUR ---
IN TO ADMINISTER MEDIACTION. PATIENT AWAKE IN THE BED. PATIENT STATES THAT HE IS THIRSTY. PATIENT ABLE TO TOLERATE SMALL SIPS OF WATER. PATINET ALERT AND ORIENTED X 4. PATIENT HAS NO OTHER COMPLAINTS AT THIS TIME.
--- NOTE | 2020-12-14 10:20 | NUR ---
MED REC COMPLETE
--- NOTE | 2020-12-14 10:25 | NUR ---
THIS RN INTO ROOM TO COMPLETE CASE MANAGEMENT ASSESSMENT. ASSESSMENT COMPLETE, PLEASE REFER TO OTHER DOCUMENTATION. THIS RN ADVISED PATIENT THAT CASE MANAGEMENT WILL F/U DURING HIS ADMISSION TO EVALUATE FURTHER NEEDS.
--- NOTE | 2020-12-14 10:32 | NUR ---
pt room picked up.
--- NOTE | 2020-12-14 11:12 | NUR ---
IN ROOM TO ASSESS PATIENTS PAIN. PATIENT RATES PAIN 6/10 AFTER MEDICATION INTERVENTION. PATIENT IS RESTING IN BED WITH NO OTHER COMPLAINTS. PATIENTS RESPIRATION ARE EVEN AND UNLABORED WITH A RATE OF 16.
--- NOTE | 2020-12-14 12:13 | NUR ---
PATIENT'S ARRIVES TO CCU. PATIENT HELPED UP TO SIDE OF BED AND HIS BACK WASHED OFF. PT THEN ABLE TO STAND AND MOVE UP IN BED. ULTIMATELY PATIENT HELPED UP TO CHAIR. LEGS ELEVATED WITH PILLOWS. PT'S ASKING GOOD, RELEVANT QUESTIONS ABOUT PATIENT'S CONDITION. THOROUGH UPDATE PROVIDED ABOUT HOW PATIENT HAS BEEN DOING AND IS DOING AT THIS TIME. DISCUSSED SEPSIS AND MEDICATIONS PATIENT IS RECEIVING. ENCOURAGED COMPRESSION STOCKING AT HIS BASELINE DUE TO SWELLING. PT TAKEN OFF OXYGEN WHILE MOVING AND SP02 IS HOVERING AROUND LOW 90s. LAST BP 91/62 (72). WILL CONTINUE TO MONITOR.
--- NOTE | 2020-12-14 12:42 | NUR ---
PATIENT UP TO BATHROOM INSTEAD OF BSC HE DID NOT FEEL HE WOULD BE ABLE TO GO TO THE BATHROOM ON THE COMMODE. PT'S WHITNEY REMAINS IN THE ROOM AND ATTENTIVE TO PATIENT.
--- NOTE | 2020-12-14 12:57 | NUR ---
PT UNABLE TO HAVE A BM BUT ABLE TO PASS GAS. DIET ADVANCED TO REGULAR AFTER TALKING WITH DR. HELM. PT REMAINS AWAKE, ORIENTED, AND NO FURTHER SIGNS OF MENTAL ALTERATIONS BEFORE. PT SITTING IN CHAIR. PT'S GOING TO GET PATIENT SOMETHING TO EAT FROM THE COMMUNITY. WILL CONTINUE TO MONITOR.
--- NOTE | 2020-12-14 14:02 | NUR ---
IN TO EMPTY CRAIG CATHETER. PATIENT IS RESTING IN CHAIR. HR IN THE 70'S. RESPIRATIONS ARE UNLABORED BUT DECREASE WITH PERIODS OF REST. PATIENT SPO2 RANGES FROM HIGH 80'S-90'S WHEN ASLEEP. PATIENT PUT ON 1 LITER VIA NC. PATIENT CURRENT SPO2 98%. PATIENT HAS NO COMPLAINTS AT THIS TIME.
--- NOTE | 2020-12-14 16:24 | NUR ---
IN TO CHECK ON PATIENT. PATIENT SLEEPING IN CHAIR. ABX STARTED AND CRAIG TIPPED. PATIENT ABLE TO ANSWER QUESTIONS APROPRIATELY. PATIENT RATES PAIN AT 7/10 AFTER MEDICATION INTERVENTION. HR REMAINS IN THE 70'S. RESPIRATIONS ARE EVEN AND UNLABORED. PATIENT IS POSITIONED IN CHAIR WITH LEGS ELEVATED. PILLOWS UNDER EACH LEG. PATIENT HAS NO OTHER COMPLAITNS AT THIS TIME.
--- NOTE | 2020-12-14 18:00 | NUR ---
IN TO EMPTY CRAIG CATHETER. PATIENT IS ASLEEP IN CHAIR. PATIENTS HR REMAINS IN THE 70'S. PATIENTS RESPIRATIONS ARE EVEN AND UNLABORED. PATIENT IS ON 2 LITERS NC DUE TO DESATURATION WHILE SLEEPING. PATIENT HAS NO COMPLAINTS AT THIS TIME. PATIENTS LEGS ARE ELEVATED IN THE CHAIR WITH PILLOWS. CALL LIGHT WITHIN REACH.
--- NOTE | 2020-12-14 19:25 | NUR ---
REPORT RECEIVED FROM GRISELDA RN, PT LAYING IN BEDSIDE RECLINER AT THIS TIME SLEEPING, IVF INFUSING ORDERED. PT RESPIRATIONS EVEN AND UNLABORED, PT ON 2L O2 NC. PT LEFT UNDISTURBED AT THIS TIME, WILL CONTINUE PLAN OF CARE.
--- NOTE | 2020-12-14 19:53 | NUR ---
THIS RN IN TO ASSESS PT AND TAKE VITALS. PT SITTING IN BEDSIDE RECLINER SLEEPING. PT IS DROWSY AND AWAKES TO PHYSICAL STIMULI. WHEN AWAKE PT IS ORIENTED TO SELF, LOCATION, AND EVENT AND ABLE TO ANSWER QUESTIONS APPROPRIATELY. ASSESSMENT COMPLETED AT THIS TIME, PT LEGS STILL REDDENED AND WARM THE RIGHT LEG MORE THEN THE LEFT. THE RIGHT LEGS REDDNESS EXTENDES TO THE INNER THIGH/GROIN AREA. STATES HE HAS NUMBNESS AND TINGLING ON TOES BUT THAT ITS HIS BASELINE. +3 EDEMA PRESENT IN LEGS AND FEET BILAT. PT REPORTS NO NEEDS AT THIS TIME WHEN ASKED AND HAS RETURNED BACK TO SLEEP, WILL CONTINUE PLAN OF CARE. CALL LIGHT IN REACH, IVF INFUSING ORDERED, PT ON 2L O2 NC, SPO2 AT 100%.
--- NOTE | 2020-12-14 21:36 | NUR ---
THIS RN IN TO ADMINISTER ORDERED MEDICATIONS. PT SITTING IN BEDSIDE RECLINER TALKING ON THE PHONE AT THIS TIME. SCHEDULED MEDICATIONS ADMINISTERED ALONG WITH PRN TYLENOL PT STATED HE WAS HAVING A HEADACHE AND RATED IT A 9/10. PT ALERT AND ORIENTED AT THIS TIME. PT REPORTS NO FURTHER NEEDS WHEN ASKED, WILL CONTINUE PLAN OF CARE. CALL LIGHT IN REACH, IVF AND IV ABX INFUSING ORDERED.
--- NOTE | 2020-12-14 23:39 | NUR ---
THIS RN IN TO ASSESS PT. PT LAYING IN BEDSIDE RECLINER SLEEPING AT THIS TIME ON 2L O2 NC. PT AWOKE WHEN BEING SALINE LOCKED AFTER IV ABX ADMINISTRATION. PT WAS ORIENTED X 4. PT REPORTS NO NEEDS WHEN ASKED AT THIS TIME. WILL CONTINUE PLAN OF CARE. CALL LIGHT IN REACH, IVF INFUSING ORDERED.
--- NOTE | 2020-12-15 00:06 | NUR ---
THIS RN IN TO ADMINISTER ORDERED IV ABX. PT LAYING IN BEDSIDE RECLINER AWAKE, IV ABX STARTED. PT REPORTS NO NEEDS WHEN ASKED AND STATES HE WILL SLEEP IN THE RECLINER TONIGHT WHEN ASKED. IV ABX INFUSING, PT ON 2L O2 NC, CRAIG DRAINING, CALL LIGHT IN REACH, WILL CONTINUE PLAN OF CARE.
--- NOTE | 2020-12-15 01:58 | NUR ---
THIS RN IN TO CHECK ON PT. PT LAYING IN BEDSIDE RECLINER SLEEPING. PT ON 2L O2 NC, IV ABX INFUSING. RESPIRATIONS NOTED AND ARE EVEN AND UNLABORED. PT IN NO APPARENT DISTRESS AT THIS TIME AND WAS LEFT UNDISTURBED. WILL CONTINUE PLAN OF CARE. CALL LIGHT WITHIN REACH.
--- NOTE | 2020-12-15 03:15 | NUR ---
THIS RN IN TO CHECK ON PT. PT LAYING IN THE BEDSIDE RECLINER SLEEPING, IVF INFUSING ORDERED. PT IN NO APPARENT DISTRESS AND WAS LEFT UNDISTURBED AT THIS TIME. WILL CONTINUE PLAN OF CARE. CALL LIGHT IN REACH, PT ON 2L O2 NC, CRAIG DRAINING.
--- NOTE | 2020-12-15 04:40 | NUR ---
THIS RN IN TO ADJUST SPO2 MONITOR ON PT. PT SLEEPING IN BEDSIDE RECLINER ON 2L O2 NC, SPO2 AT 97%. PT AWOKE DURING THIS TIME AND WAS ORIENTED. PT ASSESSED AT THIS TIME WELL, NO NEW CHANGES NOTED. PT REPORTS NO FURTHER NEEDS AND RETURNED TO SLEEP AFTERWARDS, WILL CONTINUE PLAN OF CARE. CALL LIGHT IN REACH, IVF INFUSING ORDERED.
--- NOTE | 2020-12-15 06:05 | NUR ---
RESPONDED TO PT CALLING OUT. PT NEEDED HELP SITTING UP IN BEDSIDE RECLINER HE WAS FEELING NAUSEOUS. PT RECOVERED SHORTLY AFTER BEING SAT UP. PT IV ABX STARTED AFTERWARDS (SEE OCT). PT TEMPERATURE WAS CHECKED AT THIS TIME AND WAS 102.3 ORAL, PRN TYLENOL ADMINISTERED AT THIS TIME. PT STATES HE WAS BEGINNING TO FEEL WARM WHEN ASKED IF HE WAS HAVING CHILLS. PT PROVIDED WITH ICEWATER AT THIS TIME WELL. PT REPORTS NO FURTHER NEEDS AND IS NOW SITTING UP IN BEDSIDE RECLINER WATCHING TV, WILL CONTINUE PLAN OF CARE. CALL LIGHT IN REACH, IV ABX INFUSING.
--- NOTE | 2020-12-15 06:49 | NUR ---
THIS RN IN TO CHECK ON PT. PT SPO2 GOWING BELOW 89%, PT TITRATED UP TO 3L O2 NC TO MAINTAIN SATURATIONS. SPO2 NOW AT 95%. PT REPORTS NO FURTHER NEEDS WHEN ASKED, WILL CONTINUE PLAN OF CARE. CALL LIGHT IN REACH, IVF INFUSING ORDERED.
--- NOTE | 2020-12-15 07:15 | NUR ---
Report received, orders acknowledged. Patient sleeping in chair with 3LNC in place, SpO2 of 98%. Call light within reach.
--- NOTE | 2020-12-15 08:00 | NUR ---
Dr. Mancilla in room to assess patient and discuss POC
--- NOTE | 2020-12-15 08:00 | NUR ---
Spoke with pt. 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 States he has had cellulitis several times. LIves with his and daughter. Plans on dc to home when cleared medically. Does not use any DME and does not need any on dc.
--- NOTE | 2020-12-15 08:13 | NUR ---
Case management in room to assess patient
--- NOTE | 2020-12-15 08:30 | NUR ---
Patient satting at 98-99% on 3LNC, patient titrated to room air to monitor response. Patient SpO2 now in the low 90's. Will continue to monitor.
--- NOTE | 2020-12-15 09:00 | NUR ---
Patient oxygen fluctuating between 94%-75% and back to 94% within several seconds. This occurs multiple times since trialing patient on RA. Patient titrated to 2LNC, SpO2 continues to fluctuate. Patient titrated to 3LNC and SpO2 now remains 97-98%. Patient educated on benefits of wearing a CPAP, patient agreeable to the plan.
--- NOTE | 2020-12-15 09:22 | NUR ---
RT in room to set up CPAP machine. Patient sleeping at this time in chair with 3LNC in place, 97% SpO2.
--- NOTE | 2020-12-15 09:45 | NUR ---
Patient rouses to voice. This RN begins to put CPAP mask on patient. Before mask is attached to patient, patient begins to state "Oh no, I'm sorry, I can't wear that. I feel trapped." Therapeutic communication used, patient educated on how to take mask off in order to not feel claustrophobic. However, patient states "I'm sorry, I just can't do it." 3LNC put in place, patient satting 98-100%. Falls asleep easily, call light within reach.
--- NOTE | 2020-12-15 10:44 | NUR ---
Patient sleeping in bed, 3LNC in place. SpO2 of 99%. Call light within reach.
--- NOTE | 2020-12-15 12:00 | NUR ---
Patient continuing to sleep in the chair. Temp screen deferred at this time, along with lunch. 3LNC in place, SpO2 of 98%. Will continue to monitor.
--- NOTE | 2020-12-15 12:45 | NUR ---
Patient wakes up from nap. Temp of 98.4 orally. Lunch ordered. Patient sitting in chair with legs elevated. Denies pain. Call light within reach.
--- NOTE | 2020-12-15 13:30 | NUR ---
Report given to ALEJANDRA Andino. Patient ambulates to room 116 independently, steady on feet, on RA. SpO2 of 95% when spot checked after walking. All patient belongings collected and brought to new room. Patient denies further needs.
--- NOTE | 2020-12-15 14:15 | NUR ---
PT ARRIVED TO THE FLOOR AROUND THIS TIME VIA AMBULATORY FROM CCU. PT STATES THAT HE IS HAVING HIS CHRONIC BACK PAIN. THIS RN NOTED THAT PT IS DUE FOR HIS BUPENORPHINE
--- NOTE | 2020-12-15 15:03 | NUR ---
THIS RN IN PTS ROOM TO START PTS DUE ANTIBIOTIC AND PAIN MEDS. PT SITTING UP IN CHAIR WITH LEGS ELEVATED. PT STATES PAIN IS 7/10
--- NOTE | 2020-12-15 17:07 | NUR ---
THIS RN IN PTS ROOM TO GIVE PT HIS IV VANCO. PT STANDING UP IN FRONT OF CHAIR. PT STATES THAT HE IS HAVING DIARRHEA THIS AFTERNOON AND DOESN'T WANT TO SIT DOWN BECAUSE THEN HE HAS TO GO QUICKLY.
--- NOTE | 2020-12-15 22:43 | NUR ---
IN ROOM TO ASSESS PT AND ADMINISTER MEDICATIONS. HE TOOK A SHOWER. PT STATES, IV IN R WRIST PATRICIO WITH FLUSHING. REMOVED IV PT STATES WE HAVE NOT BEEN USING IT DUE TO BURNING. PT STATES HIS NOSE IS GETTING DRY FROM O2 HE WEARS AT NIGHT. WILL BRING IN HUMIDIFICATION FOR THE O2. ADMINISTERED TYLENOL FOR 7/10 PAIN ALONG WITH HIS OTHER SCHEDULED MEDS. CALL LIGHT IS CLOSE AND PT DENIES FURTHER NEEDS.
--- NOTE | 2020-12-15 23:33 | NUR ---
IN ROOM FOR REPORT, PT IS RESTING IN CHAIR WITH EYES CLOSED. O2 READS 93% ON RA WHILE SLEEPING. CALL LIGHT IS CLOSE.
--- NOTE | 2020-12-16 00:30 | NUR ---
IN ROOM TO ADMINISTER IV ABX AND HOOKUP HUMIDIFICATION TO 02. PT REPORTS PAIN DECREASED TO 5/10. PT DENIES FURTHER NEEDS AT THIS TIME. CALL LIGHT IS CLOSE.
--- NOTE | 2020-12-16 02:00 | NUR ---
PT JUST USED BATHROOM, IV WAS BEEPING AND IT IS NOW INFUSING FINE. CALL LIGHT IS CLOSE AND PT DENIES FURTHER NEEDS.
--- NOTE | 2020-12-16 03:50 | NUR ---
PT IS AWAKE IN BED AFTER USING THE RESTROOM. IV WAS BEEPING. PT DENIES NEEDS AT THIS TIME. HE IS SLEEPING VERY LITTLE BETWEEN TRIPS TO THE BATHROOM. REDNESS ON LEGS IS UNCHANGED. CALL LIGHT IS CLOSE.
--- NOTE | 2020-12-16 05:02 | NUR ---
PT IS RESTING WITH EYES CLOSED, RR IS EVEN AND NONLABORED. CALL LIGHT IS CLOSE.
--- NOTE | 2020-12-16 06:40 | NUR ---
IN TO GET VITALS, PT FALLS BACK ASLEEP WITHOUT FURTHER NEEDS
--- NOTE | 2020-12-16 08:15 | NUR ---
REPORT RECEIVED FROM NIGHT RN AND PT. CARE RESUMED. PT. IS ALERT AND ORIENTED. BLE HAS +3 EDEMA THAT IS PITTING IN FEET, REDDENED AND WARM. PT. CMS INTACT. PT. REPORTS 7/10 PAIN IN BACK AND A HEADACHE. ADMIN. SCHEDULED PAIN MED. AND TYLENOL. LUNGS CLEAR AND BOWEL TONES ACTIVE. PT. REPORTS ONGOING DIARRHEA. IV SITE FLUSHES WELL AND WNL. PT. EDUCATED ON MEDS AND SAFETY. LEFT RESTING IN BED WITH CALL LIGHT IN REACH.
[2020-12-16] MEDS ORDERED: DOXYCYCLINE HY100 MG PO (10:14)
--- NOTE | 2020-12-16 12:10 | NUR ---
ALL DISCHARGE INSTRUCTIONS REVIEWED WITH PATIENT AND QUESTIONS ANSWERED. PT. AMBULATED TO THE CAR WITH . PT. DENIED PAIN AND VITALS STABLE. IV REMOVED WITH CATH INTACT.
== END 2020-12-16 12:10 | disposition home or self-care (01) | DRG 872 ==
LOC: ED 18:37 → CCU 21:11 → MS 12-15 14:15
PROVIDERS: ADMIT Internal Medicine; ATTEND Internal Medicine
PROC: 5A09357 Assistance with Respiratory Ventilation, Less than 24 Consecutive Hours, Continuous Positive Airway Pressure (ICD-10-PCS; principal; 2020-12-15)
DX: A41.9 Sepsis, unspecified organism (principal); L03.116 Cellulitis of left lower limb; L03.115 Cellulitis of right lower limb; Z68.42 Body mass index [BMI] 45.0-49.9, adult; Z20.822 Contact with and (suspected) exposure to COVID-19; M54.9 Dorsalgia, unspecified; G89.29 Other chronic pain; R65.20 Severe sepsis without septic shock; G47.33 Obstructive sleep apnea (adult) (pediatric); E66.01 Morbid (severe) obesity due to excess calories; Z88.8 Allergy status to other drugs, medicaments and biological substances; Z88.1 Allergy status to other antibiotic agents; Z88.5 Allergy status to narcotic agent; Z86.14 Personal history of Methicillin resistant Staphylococcus aureus infection; Z79.899 Other long term (current) drug therapy; Z86.19 Personal history of other infectious and parasitic diseases; Z87.891 Personal history of nicotine dependence; Z79.891 Long term (current) use of opiate analgesic
CPT/HCPCS: 36415; 71045; 80048; 80053; 80202; 81001; 83605; 83735; 85025; 85651; 93005; 93010; 94660; 94760; C9113; C9803; J1650; J1956; J3370; J3475; J3480; J7030; J7060; J7120; J7121; U0003

== ENCOUNTER 2021-05-06 03:29 | Emergency (ER) | payer OTHER ==
[~2021-05-06] VITALS: Ht 182.9 cm; Wt 145.2 kg
[~2021-05-06 03:29] MED LIST changes: +FEROSUL325 MG PO; +HYDROCHLOROTHIA25 MG PO; +NARCAN4 MG NAS
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
== END 2021-05-06 05:55 | disposition home or self-care (01) ==
LOC: ED 03:29
DX: S40.012A Contusion of left shoulder, initial encounter (principal); S00.01XA Abrasion of scalp, initial encounter; V49.88XA Car occupant (driver) (passenger) injured in other specified transport accidents, initial encounter; Z87.891 Personal history of nicotine dependence; Z88.0 Allergy status to penicillin; Z88.6 Allergy status to analgesic agent; Z88.1 Allergy status to other antibiotic agents; Z79.899 Other long term (current) drug therapy
CPT/HCPCS: 70450; 71045; 72125; 73030; 99284-25

== ENCOUNTER 2022-11-05 23:45 | Inpatient (IN) | payer OTHER ==
[~2022-11-05] VITALS: Ht 182.9 cm; Wt 143.0 kg
--- OUTSIDE RECORDS SUMMARY | 2022-11-05 23:48 | XMS ---
PreManage Notification: NORMA BECERRA Security Supervisor Dairy Sanitation Events No recent Security Events currently on file CRITERIA MET - PDMP - Group Notification CARE PROVIDERS -, Alicia- Dentist: Flat Lock Machine Operator Counts Include [address] [facility] PHONE: [phone] GARLAND DHILLON Physician District Associate Judge 12/14/2020-Current PHONE: [phone] Ayaka has no Care Guidelines for this patient. Care History Medical/Surgical 12/14/2020 [facility] Care Recommendation: - PLEASE REVIEW PDMP - AYAKA - USE EXTREME CAUTION IN GIVING NARCOTICS. - Avoid Discharge Narcotic prescriptions if at all possible. Physician discretion. PATIENT CURRENTLY ON A PAIN CONTRACT WITH VERÓNICA GARZA BUPRENORPHINE-NALOXON 8-2MG E.D. VISIT COUNT (12 MO.) 1 [facility] TOTAL 1 NOTE: Visits indicate total known visits. ED/UCC VISIT TRACKING (12 MO.) 11/05/2022 23:46 [facility] TYPE: Emergency COMPLAINT: - LEG PAIN INPATIENT VISIT TRACKING (12 MO.) No inpatient visits to display in this time frame [email or web address]
--- NOTE | 2022-11-06 01:35 | NUR ---
PT ARRIVES TO MED/SURG VIA STRETCHER WITH ALEJANDRA CORNELIUS. BEDSIDE REPORT RECEIVED FROM ALEJANDRA CORNELIUS. ALEJANDRA CAMPBELL IN ROOM TO ASSIST WITH TRANSFERING PT FROM STRETCHER TO BED. IV ABX INFUSING. BOLUS COMPLETE. FLUIDS STARTED, SEE MAR. ACCOMPANYING PT. PT LAYING IN BED WITH EYES CLOSED. PT RESPONDS TO QUESTIONS, BUT KEEPS EYES CLOSED. EDEMA AND REDNESS NOTED TO RLE. RIGHT LEG OUTLINED WITH SKIN MARKER. EDEMA NOTED TO LLE. ABRASION TO MID-LOWER ABD, PTs STATES "THAT IS FROM HIS BELT." REDNESS NOTED TO THIGH CREASES. PT REPORTS FEELING COLD. WARM BLANKET PROVIDED. VITALS COMPLETE. TELE PLACED. CPOX PLACED. PT O2 SATS AT 96% WITH 1L NC. 0202 PRN TYLENOL ADMINISTERED, SEE OCT, FOR TEMPERATURE OF 101.7. PT TAKES PO TYLENOL WITH NO ISSUES. PT REPORTS TOILETING NEEDS. PT ATTEMPTED TO USE URINAL, NO URINE OUTPUT NOTED. THUAN DONGBACON SKIN LIFTER IN ROOM PT IS BEING TRANSFERRED TO CCU. 0210 THUAN DONGBACON SKIN LIFTER AND RT DOREEN IN TO ASSIST WITH TAKING PT DOWN TO CCU. BEDSIDE REPORT GIVEN TO ALEJANDRA VILLATORO.
--- NOTE | 2022-11-06 02:17 | NUR ---
PT IS A NEW ADMIT TO ICU FROM [facility]. PT IS LETHARGIC, BUT ARROUSABLE. PT IS ALERT AND ORIENTED X 4 WITH A GCS OF 15. PT MOVES ALL EXTREMITIES WITH PURPOSE, CMS INTACT X 4. BASELINE V/S OBTAINED. TWO RN SKIN CHECK PERFORMED WITH FARNAZ RN. IVS ASSESSED AND FOUND TO BE PATENT. NURSE CALL LIGHT PLACED ON PT AND ALARM PARAMETERS SET. BED EXIT ALARM ON.
--- NOTE | 2022-11-06 03:15 | NUR ---
LAB CALLED TO REPORT A CRITICAL LACTATE OF 3.1, UP FROM 2.8. PT REMAINS WITH FEVER AND TACHYCARDIA. DR. HELM CALLED AND INFORMED. NEW ORDERS OBTAINED.
--- NOTE | 2022-11-06 06:31 | NUR ---
PT REMAINS AWAKE, ALERT AND ORIENTED X 4 WITH A GCS OF 15. PT MOVES ALL FOUR EXTREMITIES, CMS X 4 INTACT. PT HAS BEEN IN A ST RHYTHM, NORMOTENSIVE AND FEBRILE THROUGHOUT THE NIGHT. PRN TYLENOL ADMINISTERED JUST PRIOR TO ADMISSION INTO ICU. PT WITH ADEQUATE UO. PT ABLE TO VOID INTO URINAL. LABS: WORSENING LACTATE OF 3.1. AN ADDITIONAL LITER OF NACL AND LEVOFLOXACIN IV ADMINISTERED. TROP CONTINUES TO BE ELEVATED AT 77.5. PT RECIEVING THERAPEUTIC LOVENOX.
--- NOTE | 2022-11-06 07:30 | NUR ---
REPORT RECEIVED. IVF INFUSING. PATIENT IS ASLEEP. NO RESP DISTRESS NOTED.
--- NOTE | 2022-11-06 08:00 | NUR ---
ASSESSMENT DONE. IS COOPERATIVE, IS GROGGY, REFUSING BREAKFAST. US OF LEG BEING DONE AT BEDSIDE. PATIENT RATES LEG PAIN 10/10. IVF PATENT. RLE ELEVATED ON PILLOWS IS VERY RED AND EXTREMELY SWOLLEN.
--- NOTE | 2022-11-06 09:00 | NUR ---
PATIENT RESTING IN BED. RN AT BEDSIDE. PATIENT REPOSITIONED FOR COMFORT, SIPS OF ICE WATER PROVIDED PER REQUEST, HOWEVER PATIENT REFUSED BREAKFAST. VITALS CHARTED. NO OTHER NEEDS AT THIS TIME
--- NOTE | 2022-11-06 09:26 | NUR ---
SLEEPING WITH HOB ELEVATED. NO DISTRESS NOTED. RLE ELEVATED ON 2 PILLOWS.
--- NOTE | 2022-11-06 12:05 | NUR ---
LABS DRAWN FROM [facility] IV SITE. ASSESSMENT DONE. IV ABX GIVEN. REFUSING LUNCH. NO CHANGES IN RLE.
--- NOTE | 2022-11-06 13:00 | NUR ---
INTO PATIENT ROOM TO COMPLETE ASSESSMENT. PATIENT SLEEPING AND DOES NOT WAKE TO VOICE ON MULTIPLE ATTEMPTS.
--- NOTE | 2022-11-06 14:10 | NUR ---
ECHO BEING DONE AT BEDSIDE.
--- NOTE | 2022-11-06 14:50 | NUR ---
ROUTINE BUPRENORPHINE 8 MG SL GIVEN. CONTINUES TO RATE RIGHT LEG PAIN 10/10.
--- NOTE | 2022-11-06 14:56 | EKG ---
[facility] [address] [place], [place] [address] Signed Sinus tachycardia Otherwise normal ECG When compared with ECG of 13-DEC-2020 20:25, No significant change was found Confirmed by RADHA HELM MD ([id number]) on 11/06/2022 2:55:58 PM Electronically Signed By: RADHA HELM MD 11/06/22 1456 PATIENT NAME: MARIAMNORMA Electrocardiogram DATE OF : 83 PHYSICIAN: RADHA HELM MD REPORT #: [id number] REPORT IS CONFIDENTIAL AND NOT TO BE RELEASED WITHOUT AUTHORIZATION
--- NOTE | 2022-11-06 15:50 | NUR ---
SLEEPING AT THIS TIME. NO DISTRESS NOTED.
--- NOTE | 2022-11-06 16:51 | NUR ---
PATIENT RESTING IN BED, EYES COSED. CALL LIGHT IN EASY REACH
--- NOTE | 2022-11-06 17:00 | NUR ---
DR. HELM UPDATED ON PATIENT CURRENT STATUS. IS AWARE OF CURRENT VITAL SIGNS. PATIENSTATES HE DOES FEEL A LITTLE BETTER. TELE #2 APPLIED. WILL TRANSFER TO MED-SURG PATIENT HAS BEEN HOUSE CONVENIENCE SINCE LAST NIGHT.
--- NOTE | 2022-11-06 17:35 | NUR ---
PARSONAL ITEMS TAKEN TO NEW ROOM ON MED/SURG.
--- NOTE | 2022-11-06 18:09 | NUR ---
Report from ALEJANDRA Mix. Patient taken from room 126 to room 107 on med-surg, in bed, by this nurse. Patient uses urinal at bedside, continent of urine. Fresh water provided, vitals obtained. Denies other needs at this time. Supper tray left at bedside.
--- NOTE | 2022-11-06 19:24 | NUR ---
REPORT RECEIVED FROM OFFGOING RNRICARDO. PT RESTING IN BED WITH EYES CLOSED. CALL LIGHT IN REACH.
--- NOTE | 2022-11-06 20:09 | NUR ---
PT ASSESSMENT COMPLETE. PT DROWSY, WAKES BRIEFLY, ANSWERS QUESTIONS APPROPRIATELY. PT RATES PAIN 9/10 TO RLE, AND SORENESS TO RUE. PT DENIES NAUSEA OR SOB. 4+ PITTING EDEMA PRESENT TO RLE, 1+ PITTING EDEMA PRESENT TO LLE. RLE WITH REDNESS AND WARMTH TO TOUCH. REDNESS REMAINS WITHIN OUTLINED AREA. PT ABLE TO MOVE TOES, PUSH, AND PULL. PT REPORTS SLIGHT TINGLING/NUMBNESS WITH MOVEMENT OF RLE. IV FLUSHED WITH 5 ML NS X2, WNL. VS OBTAINED, TEMP 102.2, TO BE NOTIFIED. PT DENIES FURTHER NEEDS AT THIS TIME. CALL LIGHT IN REACH.
--- NOTE | 2022-11-06 20:47 | NUR ---
NOTIFED REGARDING TEMP 102.2. NEW ORDER RECEIVED. PRN ADMINISTERED. SEE EMAR. ICE PACK PROVIDED FOR L SHOULDER PAIN, PT DESCRIBES BONE ACHING. PT DENIES FURTHER NEEDS AT THIS TIME. CALL LIGHT IN REACH.
--- NOTE | 2022-11-06 22:23 | NUR ---
PT'S FAMILY TO ROOM. PT WAKES EASILY, OPENS EYES AND TALKS WITH THEM. TEMP RECHECKED, 99.4. PT DIAPHORETIC. COOL WASH CLOTH PROVIDED. PT REPORTS THAT PAIN IS SLIGHTLY IMPROVED. DENIES FURTHER NEEDS AT THIS TIME. CALL LIGHT IN REACH.
--- NOTE | 2022-11-06 23:48 | NUR ---
PT ROUNDING. PT RESTING IN BED WITH EYES CLOSED. RESPIRATIONS EVEN AND UNLABORED. PT DOES NOT WAKE WHILE SAFETY DIRECTOR AT BEDSIDE. HR 91. CALL LIGHT IN REACH.
--- NOTE | 2022-11-07 00:48 | NUR ---
PT ROUNDING. PT RESTING IN BED WITH EYES CLOSED. RESPIRATIONS EVEN AND UNLABORED. PT APPEARS TO BE SLEEPING. CALL LIGHT IN REACH. HR 90, SR.
--- NOTE | 2022-11-07 03:36 | NUR ---
PT ASSESSMENT COMPLETE. PT RESTING IN WITH EYES CLOSED. RESPIRATIONS EVEN AND UNLABORED. PT WAKES EASILY BUT REMAINS DROWSY THROUGHOUT ASSESSMENT, FALLS BACK TO SLEEP QUICKLY DURING ASSESSMENT. PT RATES PAIN 9/10 TO RLE AND GENERALIZED BODY ACHES. PRN ADMINISTERED, SEE EMAR. PT DENIES NAUSEA OR SOB. TELE #[address], SR, HR 90'S. RLE REMAINS RED AND HOT TO TOUCH. REDNESS REMAINS WITHIN OUTLINE AREA. EDEMA 4+. PEDAL AND TIBIAL PULSES AUSCULTATED. IV RAC WITH CONTINUOUS FLUIDS. IV LAC SL. ICE WATER PROVIDED. PT DENIES FURTHER NEEDS AT THIS TIME CALL LIGHT IN REACH.
--- NOTE | 2022-11-07 05:30 | NUR ---
ASSEMBLER FOR PULLER OVER MACHINE TO ROOM FOR SCHEDULED MEDCIATION ADMINISTRATION. PT CONTINUES TO RATE PAIN 05/06. TEMP 99.8. SCHEDULED PRN ADMINISTERED. ICE WATER REFILLED. DENIES FURTHER NEEDS AT THIS TIME. CALL LIGHT IN REACH.
--- NOTE | 2022-11-07 07:06 | NUR ---
RECEIVED REPORT FROM SHANNAN ROBERTS. PT RESTING IN BED, CALL LIGHT WITHIN REACH. PT HAS NS @ 125 INFUSING. DENIES NEEDS AT THIS TIME.
--- NOTE | 2022-11-07 07:30 | NUR ---
Spoke with Dany. He states he lives in [place] with his in a Duplex. He does not use any DME. Pt returns for cellulities. He states he and share household tasks. Address and [employer] corrected. Email sent to Starr Rico to correct in [employer]. Pt states he is not working and is aware of [employer] as they have used their services in the past. Pt denies needs and plans on dc to home when cleared medically. Pt states she has not seen podiatry, suggested he speak with his pcp for recommendation.
--- NOTE | 2022-11-07 08:17 | NUR ---
MORNING ASSESSMENT COMPLETED AND PAIN MEDICATION PROVIDED. PT RESTING IN BED, CALL LIGHT WITHIN REACH, BEDRAIL UP FOR SAFETY. PT DENIES GETTING OUT OF BED FOR BREAKFAST, REQUESTING TRAY TO BE LEFT AT BEDSIDE. PT LUNG SOUNDS CLEAR, HEART SOUNDS STRONG. PT ON TELE, HR 108. PT ALERT AND ORIENTED, BUT DROWSY. PT RIGHT LEG PROPPED ON PILLOWS. RIGHT LEG 4+ EDEMA WITH ERYTHEMA NOTED FROM FOOT UP TO GROIN. TWO SMALL BLISTERS NOTED ON OUTER ASPECT OF RIGHT ANKLE.
--- NOTE | 2022-11-07 09:01 | NUR ---
PT RESTING IN BED. VITALS AND IS AND OS COMPLETE. URINAL EMPTIED. ICE WATER PROVIDED. NO FURTHER NEEDED. CALL LIGHT WITHIN REACH
--- NOTE | 2022-11-07 09:06 | NUR ---
MED REC COMPLETE
--- NOTE | 2022-11-07 10:40 | NUR ---
Report from ALEJANDRA Baeza. Patient resting in bed with leg elevated on pillows. Remains with blisters to anterior and lateral aspect of ankle. Redness has receded slightly from 11/06/22. Denies needs at this time. Call light in reach. Bed rails up.
--- NOTE | 2022-11-07 13:48 | NUR ---
Patient incontinent of stool in bed. Janet-care completed by this nurse and aide with assist. Denies other needs at this time.
--- NOTE | 2022-11-07 16:30 | NUR ---
RECEIVED TRANSFER OF CARE REPORT FROM RICARDO. PATIENT CURRENTLY ASLEEP WITH RIGHT LEG ELEVATED ON PILLOWS.
--- NOTE | 2022-11-07 18:03 | NUR ---
PATIENT WANTED TO GET UP TO THE RESTROOM TO TRY TO HAVE A BOWEL MOVEMENT. PATIENTS BED WAS CHANGED WITH AND ROOM WAS TIDY UP. PATIENT ADVISED HE HAD ONE SMALL BOWEL MOVMENT AND IS TAKING A STOOL SOFTNER CURRENTLY. PATIENT FROM RESTROOM TO THE CHAIR FOR DINNER. IV RUNNING CURRENTLY. PATIENT GIVEN WARM BLANKET. DENIES ANY OTHER CARES AT THIS TIME.
--- NOTE | 2022-11-07 18:18 | NUR ---
PATIENT GIVEN INCENTIVE SPIROMETER TO USE PATIENT HAD ELEVATED TEMP AT 99.7 EARLIER TODAY.
--- NOTE | 2022-11-07 19:33 | NUR ---
REPORT RECEIVED FROM DAY SHIFT RN. PT SITTING IN RECLINER ALERT AND ORIENTED. DENIES NEEDS. WHITE BOARD UPDATED. CALL LIGHT IN REACH.
--- NOTE | 2022-11-07 22:24 | NUR ---
PT SITTING IN RECLINER WATCHING TV. VS AND I&O OBTAINED. EVENING ASSESSMENT COMPLETE. SCHEDULED MEDS ADMIN PER EMAR. PT REPORTS RLE PAIN 05/06. PRN FOR PAIN ADMIN PER EMAR. PT DENIES NAUSEA. RLE EDEMA, REDNESS, AND WARMTH NOTED. REDNESS SLIGHTLY BEYOND OUTLINE ON RIGHT OUTTER UPPER THIGH. NEW OUTLINE CREATED. BLISTERS ON OUTTER RIGHT ANKLE INTACT. SMALL AMOUNT YELLOW DRAINAGE NOTED FROM CALF AREA. BLE ELEVATED IN RECLINER. PT DENIES QUESTIONS OR CONCERNS. CALL LIGHT IN REACH.
--- NOTE | 2022-11-07 23:10 | NUR ---
PATIENT CALLED TO USE THE BATHROOM. SBA. PATIENT STATED HE HAD BM AND URINATED UNMEASURED. PATIENT IS BACK IN BED NOW. RIGHT LEG ELEVATED USING 4 PILLOWS. DENIES FURTHER NEEDS AT THIS TIME. CALL LIGHT WITHIN REACH.
--- NOTE | 2022-11-08 01:21 | NUR ---
PT RESTING IN BED WITH EYES CLOSED. RESPIRATIONS EVEN. RLE ELEVATED ON PILLOWS X 3. IVF INFUSING WNL. CALL LIGHT IN REACH.
--- NOTE | 2022-11-08 03:38 | NUR ---
IV PUMP ALARMING. ISSUE RESOLVED. URINAL EMPTIED. TEMP 97.9. RLE ELEVATED ON PILLOWS X 3. PT REPORTS RLE PAIN /10. REFUSES PRN FOR PAIN WHEN OFFERED. BLANKET PROVIDED. NO FURTHER NEEDS.
--- NOTE | 2022-11-08 05:42 | NUR ---
PT RESTING IN BED WITH EYES CLOSED. AWAKENS EASILY. VS AND I&O OBTAINED. PT AFEBRILE. REPORTS HE IS RESTING WELL. DENIES NEEDS. CALL LIGHT IN REACH.
--- NOTE | 2022-11-08 07:08 | NUR ---
Report from Chance Perez RN. Patient resting in bed with leg elevated, respirations even and unlabored. Call light in reach, bed rails up X2. Allowed to rest at this time.
--- NOTE | 2022-11-08 08:15 | NUR ---
Pt resting, feels leg might be slightly improved. Denies needs.
--- NOTE | 2022-11-08 13:43 | NUR ---
PATIENT IN BED RESTING WITH EYES CLOSED. VITALS AND I&O'S CHARTED. CALL LIGHT IN REACH. NO FURTHER NEEDS AT THIS TIME.
--- NOTE | 2022-11-08 19:36 | NUR ---
REPORT RECEIVED FROM ALEJANDRA SILVA. pt RESTING IN BED AWAKE. RIGHT LEG ELEVATED ON PILLOWS. RATES PAIN 9/10 IN RIGHT LEG. FAMILY IN ROOM. pt FINISHED ABOUT 10% OF DINNER, REQUESTING FRUIT AND YOGURT. BARREL FINISHER TO RETRIEVE FOR pt.
--- NOTE | 2022-11-08 19:50 | NUR ---
IN TO GET VS FOR RN, ICE WATER REFILLED FOR PT, NEW CHUX IN PLACE UNDER PT LEG, LEG REMAINS ELEVATED, NO FURTHER NEEDS AT THIS TIME
--- NOTE | 2022-11-08 20:05 | NUR ---
pt AWAKE RESTING IN BED. TEMPERATURE 101.6. MOTRIN ADMINISTERED. TEPID CLOTH PROVIDED. ICE PACK PER REQUEST. ASSESSMENT COMPLETE. DOPPLER RLE, PULSE FEINT. REDNESS WITHIN MARGINS TO UPPER THIGH RLE, HOT TO TOUCH. RLE ELEVATED ON PILLOW. IV SITES FLUSHED WNL PER POLICY. PO SNACK PROVIDED. CALL LIGHT IN REACH. LIGHTS OFF IN ROOM.
--- NOTE | 2022-11-08 21:45 | NUR ---
IN TO RECHECK TEMP, URINAL EMPTIED
--- NOTE | 2022-11-08 23:25 | NUR ---
pt RESTING IN BED WITH EYES CLOSED. RR EQUAL AND UNLABORED. RIGHT LEG ELEVATED ON PILLOWS.
--- NOTE | 2022-11-09 02:23 | NUR ---
pt RESTING IN BED, EYES CLOSED, RR 18. LIGHTS OFF IN ROOM. NO DISTRESS NOTED.
--- NOTE | 2022-11-09 04:36 | NUR ---
pt RESTING IN BED SLIGHTLY ON RIGHT SIDE, RIGHT LEG ELEVATED ON PILLOW. EYES CLOSED. BREATHING EQUAL AND UNLABORED.
--- NOTE | 2022-11-09 05:23 | NUR ---
pt UP TO RESTROOM FOR VOID INDEPENDENTLY. BACK IN BED. VSS. AFEBRILE. ASSESSMENT COMPLETE. RLE RED, HOT TO TOUCH, REDNESS WITHIN INK LINE MARGINS, PULSE AUSCULTATED WITH DOPPLER RLE. pt RATES PAIN 9/10. PRN PAIN MEDICATIONS ADMINISTERED. CALL LIGHT IN REACH.
--- NOTE | 2022-11-09 07:23 | NUR ---
REPORT RECEIVED FROM ALEJANDRA MORENO. PT RESTING IN BED WITH EYES CLOSED, RESPIRATIONS EVEN AND UNLABORED. PT ALLOWED TO REST. CALL LIGHT WITHIN REACH. RIGHT LEG ELEVATED ON 2 PILLOWS.
--- NOTE | 2022-11-09 08:00 | NUR ---
In to speak with pt. Sleeping. Not awakened. No change in plan for CM.
--- NOTE | 2022-11-09 09:16 | NUR ---
MORNING ASSESSMENT AND MEDICATION DUE. PT RESTING IN BED. PT REPORTS 9/10 PAIN IN RIGHT LOWER EXTREMITY AND REQUESTS PAIN MEDICATION, SEE MAR FOR MEDICATION GIVEN. REDNESS REMAINS WITHIN OUTLINED AREA AND HAS RECEEDED SOME FROM MARKED AREA. LEG CONTINUES TO BE HOT TO TOUCH AND SWOLLEN, BLISTER TO LOWER RIGHT LEG/ANKLE HAS BURST AND REDDNEED OPENED SKIN NOTED. ADAPTIC APPLIED WITH NON ADHEARANT GAUZE AND KERLIX TO KEEP DRESSING IN PLACE. LEGS CONTINUE TO WEEP SEROUS FLUID. PULSE NOTED BY DOPPLER TO RLE. PT REPORTS ONGOING NEUROPATHY. PHOTOGRAPHS OF BLISTER AREA TAKEN PRIOR TO APPLYING DRESSING. PT ALERT AND OREINTED TO ALL. PT IS ABLE TO LIFT LOWER EXTREMITIES AND AMBULATE NEEDED. RIGHT LOWER EXTREMITIY REMAINS ELEVATED ON PILLOWS. REDNESS AND MILD EDEMA NOTED TO SCROTAL AREA WELL. PT DECLINE BOWEL MEDICAITONS THIS MORNING CITING BOWEL MOVEMENTS YESTERDAY. PT REQUESTS ADDITIONAL BREAKFAST, ORDERED. PT DECLINES TIME UP TO THE CHAIR. NO ADDITIONAL REQUESTS OR COMPLAINTS AT THIS TIME. CALL LIGHT WIHTIN REACH. BED RAILS UP.
--- NOTE | 2022-11-09 10:33 | NUR ---
THIS RN TO ROOM TO CHECK ON PT. PT RESTING IN BED WITH EYES CLOSED. AWAKENS TO MOVEMENT IN THE ROOM. PT RPEORTS 9/10 PAIN CONTINUES IN RLE. PT UPDATED ON PAIN MEDICATIONS AVALIBILITY AND STATES HE WOULD LIKE TO WAIT UNTIL THE TYLENOL IS DUE. ICE WATER REFILLED. PT ATE ~10% OF BREAKFAST. NO ADDITIONAL REQUESTS OR COMPLAINTS. CALL LIGHT WITHIN REACH. BED RAILS UP.
--- NOTE | 2022-11-09 11:40 | NUR ---
THIS RN TO ROOM TO CHECK ON PT. PT RESTING WITH EYES CLOSED. RESPIRATIONS EVEN AND UNLABORED. BED RAILS UP. CALL LIGHT WITHIN REACH. PT ALLOWED TO REST.
--- NOTE | 2022-11-09 12:50 | NUR ---
IV ABX DUE AND ARRIVED FROM PHARMACY. GIVEN BY ALEJANDRA ORELLANA. THIS RN TO ROOM TO CHECK ON PT. PT NOW AWAKE AND ALERT. REPORTS 9/10 PAIN IN RIGHT LOWER EXTREMITY. SEE MAR FOR MEDICATION GIVEN. LUNCH AT BEDSIDE, PT DECLIENS AT THIS TIME. NO ADDITIONAL REQUESTS OR COMPLAINTS. CALL LIGHT WITHIN REACH. BED RAILS UP.
--- NOTE | 2022-11-09 15:02 | NUR ---
AFTERNOON ASSESSMENT AND MEDICATION DUE. PT RESTING IN BED WITH EYES CLOSED. RESPIRATIONS EVEN AND UNLABORED. PT AWAKENS TO VOICE. PT REPORTS 9/10 PAIN IN RIGHT LOWER EXTREMITY, SEE MAR FOR MEDICATION GIVEN. PT DENEIS NAUSEA. IV TO LEFT AC PAINFUL AND LEAKING, DC'D PER PROTOCOL. DRESSING TO RIGHT IV SITE LOOSE, CHANGED PER PROTOCOL. PT OFFERED TIME UP TO CHAIR. PT DECLINES AT THIS TIME. RIGHT LOWER EXTREMITY REMAINS REDDENED, SWOLLEN, AND WARM TO TOUCH. REDNESS REMAINS WITHIN OUTLINED AREA AND SOMEWHAT RECEEDED FROM MARKED LINE. PULSE CONTNIUE TO BE FOUND BYDOPPLER IN RIGHT FOOT/ANKLE. PT ABLE TO MOVE TOES AND REPORTS NORMAL SENSATION TO TOES. STRONG PULSES NOTED TO LEFT LOWER FOOT AND ANKLE, NO DOPPLER NEEDED. SCROTAL REDNESS AND MILD SWELLING UNCHANGED. DRESSING APPLIED OVER BROKEN BLISTER TO RIGHT LOWER LEG SHOWS MODERATE AMOUNT OF SEROUS DRAINAGE. LEFT IN PLACE AT THIS TIME. NO ADDITIONAL REQUESTS OR COMPLAINTS. PT STATES HIS LEG SEEMS "A LITTLE BETTER" SINCE HE FIRST ARRIVED. CALL LIGHT WITHIN REACH. BED RAILS UP.
--- NOTE | 2022-11-09 16:36 | NUR ---
THIS RN TO ROOM TO CHECK ON PT. PT RESTING WITH EYES CLOSED. RESPIRATIONS EVEN AND UNLABORED. CALL LIGHT WITHIN REACH. PT ALLOWED TO REST.
--- NOTE | 2022-11-09 17:35 | NUR ---
THIS RN TO ROOM TO CHECK ON PT. PT CONTINUES TO DECLINE TATUM OUT OF BED. PT REPORTS PAIN IN HIS RIGHT LOWER EXTREMITY REMAINS AT 9/10. IBUPROFEN OFFERED, PT DECLINES. PT REPORTS MINIMAL APPITITE FOR DINNER, DINNER REMAINS AT BEDSIDE. PT DENIES ADDITIONAL REQUESTS OR COMPLAINTS. CALL LIGHT WITHIN REACH. BED RAILS UP.
--- NOTE | 2022-11-09 17:44 | NUR ---
PT HERE FOR CELLULITIS OF THE RIGHT LOWER EXTREMITY. PT INDEPENDANT IN ROOM BUT MOSTLY IN BED THIS SHIFT, DECLINING TIME OUT OF BED. RIGHT LEG REMAINS ELEVATED THROUGHOUT SHIFT. PT TOLERATING REGULAR DIET WITH MINIMAL APPITITE. IV ABX GIVEN. RIGHT LOWER EXTREMITY REMAINS SWOLLWEN AND REDDENED ALTHOUGH REDNESS IS WITHIN MARKED LINES. PULSES TO RIGHT LOWER EXTREMITY FOUND WITH DOPPLER. RLE REMAINS HOT TO TOUCH. PRN PAIN MEDICATION GIVEN FOR CONSISTANT 9/10 PAIN IN RLE THIS SHIFT. BLISTER TO RIGHT ANKLE POPPED AND DRAINING WITH RAW SKIN NOTED. ADAPTIC AND NON ADHEARNT GAUZE APPLIED. DRESSING SHOWS MODERATE AMOUNT OF SEROUS DRAINAGE THIS EVENING. BLOOD CUTLURES PENDING. PT VOIDING QUANTITY SUFFICIENT. PT USES CALL LIGHT AND MAKES NEEDS KNOWN.
--- NOTE | 2022-11-09 18:05 | NUR ---
THIS RN TO ROOM WITH DR. HUIZAR FOR ROUNDS. PT RESTING IN BED WITH EYES CLOSED. AWAKENS TO VOICE. DRESSING REMOVED FOR MD TO EXAMINE WOUND. ORDERS GIVEN TO REPLACE DRESSING PRN WITH ADAPTIC, NON ADHEARNT GAUZE AND KERLIX NEEDED. PT VERBALIZES UNDERSTANDING OF PLAN OF CARE AND STATES HIS QUESTIONS HAVE BEEN ANSWERED. PT REQUESTS IBUPROFEN FOR 9/10 PAIN IN RLE, SEE MAR FOR MEDICATION GIVEN. NEW DRESSING APPLIED PER MD ORDER. NO ADDITIONAL REQUESTS OR COMPLAINTS. CALL LIGHT WITHIN REACH. BED RAILS UP.
--- NOTE | 2022-11-09 19:25 | NUR ---
RECEIVED REPORT FROM DAY SHIFT RN. PATIENT IS RESTING IN BED WITH EYES CLOSED, RR 16. CALL LIGHT IN REACH.
--- NOTE | 2022-11-09 21:36 | NUR ---
PATIENT ASSESMENT COMPLETED. PATIENTS VITALS TAKEN AND RECORDED. INTAKE ADN OUTPUT RECORDED. PM MEDS PER ORDER. PATIENT RATES PAIN AT A 9/10, PRN TYLENOL GIVEN PER ORDER. PATIENT PROVIDED WITH FRESH ICE WATER. PATIENTS RLE IS ELEVATED ON PILLOW. DRESSING IN PLACE. PATIENT DENIES ANY FURTHER NEEDS. CALL LIGHT IN REACH.
--- NOTE | 2022-11-09 23:55 | NUR ---
PATIENT IS RESTING IN BED WITH EYES CLOSED, RR 17. CALL LIGHT IN REACH.
--- NOTE | 2022-11-10 01:59 | NUR ---
PATIENT REPORTS 9/10 PAIN IN HIS RLE, PRN MOTRIN GIVEN PER ORDER. PATIENT DENIES ANY FURTHER NEEDS. CALL LIGHT IN REACH.
--- NOTE | 2022-11-10 03:57 | NUR ---
PATIENT UP TO THE BR. PATIENT ABLE TO VOID. PATIENT IS BACK IN BED RESTING. PATIENT RATES PAIN AT A 9/10 AND DENIES THE NEED FOR INTERVENTION AT THIS TIME. PATIENT DENIES ANY FURTHER NEEDS. CALL LIGHT IN REACH.
--- NOTE | 2022-11-10 05:46 | NUR ---
PATIENTS VITALS TAKE AND RECORDED. INTAKE AND OUTPUT RECORDED. PATIENT RATES PAIN AT A 9/10, PRN TYLENOL GIVEN PER ORDER. PATIENTS IV SL PER ORDER. PATIENT DENIES ANY FURTHER NEEDS. CALL LIGHT IN REACH.
--- NOTE | 2022-11-10 07:00 | NUR ---
Pt sleeping, not awakened.
--- NOTE | 2022-11-10 07:05 | NUR ---
REPORT RECEIVED FROM ALEJANDRA BORJA. PT RESTING IN BED, SUPINE, WITH EYES CLOSED. RESPIRATIONS EVEN AND UNLABORED. PT AWAKNES TO VOICE. LEG REELEVATED ON 3 PILLOWS. PT DRIFTS BACK TO SLEEP. NO ADDITIONAL NEEDS AT THIS TIME. CALL LIGHT WITHIN REACH. BED RAILS UP.
--- NOTE | 2022-11-10 07:30 | NUR ---
MORNING ASSESSMENT: PT CONTINUES RESTING WITH EYES CLOSED. RESPONDS TO MOVEMENT IN ROOM AND AWAKENS TO VOICE. PT REPORTS ONGOING 9/10 PAIN IN RIGHT LOWER EXTREMITIY. SEE MAR FOR MEDICATION GIVEN. PT ALERT AND OREINTED TO ALL. IV FLUSHES SLUGGISHLY BUT IMPROVES FLUSHED. PT DENIES PAIN AT IV SITE. NO REDNESS NOTED. DR. HUIZAR SUGGESTS A MIDLINE BE PLACED. MIDLINE TEAM NOTIFIED. PT ALERT AND OREINTED TO ALL. WEAKNESS REMAINS IN RIGHT LOWER EXTREMITY ALTHOUGH PT IS ABLE TO AMBULATE TO RESTROOM AND LIFT LEG OFF THE BED. DRESSING TO RIGHT ANKLE SATURATED WITH SEROUS FLUID. DRESSING REMOVED AND NEW PHOTOGRAPHS OF BLISTERED AREA TAKEN. RLE REMAINS HOT TO TOUCH ALTHOUGH SEEMS LESS WARM THAN YESTERDAY. REDNESS REMAINS WITHIN MARKED LINES, NEW OUTLINE DRAWN AROUND REDDENED AREA. RIGHT CALF AND FOOT REMAIN VERY RED AND SWOLLEN AND PAINFUL TO THE TOUCH. RIGHT TIBIALIS AND PEDIAL PULSES FOUND WITH DOPPLER. PT REPORTS NORMAL SENSATION TO RIGHT TOES AND IS ABLE TO MOVE TOES. BLISTERED AREA TO RIGHT ANKLE MORE OPEN TODAY, SEE PHOTOGRAPHS. NEW DRESSING APPLIED PER MD ORDER. RIGHT LEG ELEVATED ON 3 PILLOWS. LEFT LOWER EXTREMITY REMAINS WNL, STRONG PULSES NOTED, SENSATION AND MOVEMENT WNL. SCROTAL REDNESS AND SWELLING MILDLY IMPROVED FROM YESTERDAY. PT REPORTS HE FEELS "TIRED" AND [place]ES "PAIN IN MY LEG" BUT OTHERWISE STATES HE FEELS NO DIFFERENT THAN YESTERDAY. PT DRIFTS BACK TO SLEEP. NO ADDITIONAL REQUESTS OR COMPLAINTS. CALL LIGHT WITHIN REACH. BED RAILS UP.
--- NOTE | 2022-11-10 08:43 | NUR ---
WHEN I CAME IN TO CHECK ON PATIENT AGAIN. PATIENT WAS ALREADY UP IN HIS CHAIR. CHANGED HIS BED LINENS. ALSO HE USED HIS URNIAL.
--- NOTE | 2022-11-10 08:52 | NUR ---
MEDICATION DUE. PT UP TO CHAIR, INDEPENDANT WITH AMBULATION. PT REPROTS ON GOING 9 PAIN IN RLE. SEE MAR FOR MEDICATION GIVEN. PT DECLINES STOOL SOFTENERS STATING "I ONLY NEED THEM AT NIGHT." HOT TEA PROVIDED. YOGURT ORDERED PER PT REQUEST. WARM BLANKETS PROVIDED. PT ENCROAUGED TO STAY UP TO CHAIR TOLERATED AND TO VOID IN URINAL. EDUCATION DONE WITH PT REGARDING REASONS FOR THESE CARES. PT VERBALIZES UNDERSTANDING. NO ADDITIONAL REQUESTS OR COMPLAINTS AT THIS TIME. CALL LIGHT WITHIN REACH.
--- NOTE | 2022-11-10 09:30 | NUR ---
Discussed in 9:30 meeting. will order Midline or PICC placement. No change for CM plan.
--- NOTE | 2022-11-10 09:53 | NUR ---
THIS RN TO ROOM TO CHECK ON PT. PT REMAINS UP TO CHAIR. PT STATES HE IS COMFORTABLE AT THIS TIME. REPORTS 8/10 PAIN IN RIGHT LOWER EXTREMITY AND DENIES NEED FOR ADDITIONAL PAIN MEDICATION. PT DENIES ADDITIONAL REQUESTS OR COMPLAINTS. CALL LIGHT WITHIN REACH.
--- NOTE | 2022-11-10 11:07 | NUR ---
THIS RN TO ROOM TO CHECK ON PT. PT RESTING IN CHAIR WITH EYES CLOSED. RESPIRATIONS EVEN AND UNLABORED. CALL LIGHT WITHIN REACH. PT ALLOWED TO REST.
--- NOTE | 2022-11-10 12:04 | NUR ---
RN BILL CONCERNED PTS' ATTITUDE AND DRIVE SLIPPING SOME. FOUND PT TO BE ALERT, ORIENTED AND SITTING IN CHAIR WATCHING TV. PT FEELS TRMT IS HELPING LEGS ELEVATED. GAVE ENCOURAGEMENT, G.POST AND INFORMED PT THAT I AM HERE IF HE NEEDED TO TALK. PT ACKNOWLEDGED.
--- NOTE | 2022-11-10 12:35 | NUR ---
MEDICAITON DUE. THIS RN TO ROOM. PT GETTING BACK FROM RESTROOM AND CHAIR, BACK TO BED. PT REPORTS 8/10 PAIN TO RLE, SEE MAR FOR MEDICATION GIVEN. DRESSING TO RIGHT ANKLE NOTED TO BE SATURATED WITH SEROUS FLUID. DRESSING CHANGED PER MD ORDER. PT TOERLATED DRESSING CHANGE WELL. ADDITIONAL PHOTOGRAPHS TAKE AND YELLOW SLOUGH TISSURE IS NOTED FROM THE 7 TO 1 O'CLOCK POSITIONS OF LATERAL WOUND (SEE PHOTOGRAPHS), DRIPS OF SEROUS FLUID NOTED COMING FROM WOUND. ABD PAD ADDED TO OUTTER DRESSING TO ABSORB FLUID. LEG ELEVATED ON 4 PILLOWS. WARM BLANKETS PROVIDED. PT DENIES ADDITIONAL REQUESTS OR COMPLAINTS. CALL LIGHT WITHIN REACH. LUNCH AT BEDSIDE.
--- NOTE | 2022-11-10 14:05 | NUR ---
PT DENIES NEEDS, FRESH ICE WATER PROVIDED. PT REPORTS BEING COLD, TEMP 98.4 ORAL, TEMP IN ROOM INCREASED PER PT REQUEST. AUTOMATION QA TESTER IN ROOM TO COMPLETE VITALS.
--- NOTE | 2022-11-10 14:19 | NUR ---
AFTERNOON ASSESSMENT AND MEDICATION DUE. PT RESTING IN BED, PT REPORTS PAIN IN RLE HAS INCREASED TO 9/10. SEE MAR FOR MEDICATION GIVEN. PT ALERT AND OREINTED TO ALL. RLE DRESSING REMAINS INTACT, MODERATE AMOUNT OF SEROUS FLUID NOTED ON DRESSING. DRESSING LEFT IN PLACE AT THIS TIME. REDNESS TO RLE REMAINS WITH IN MARKED AREAS. HEAT CONTINUES ALTHOUGH APPEARS TO BE IMPROVING. RLE REMAINS SWOLLE AT +4 PITTING LEVEL. PEDIAL AND TIBIALIS PULSES NOTED WITH DOPPLER ON RLE AND BY FEEL ON LLE. MID LINE NURSE, KAYLA, TO BEDSIDE TO EVALUATE FOR AND PLACE MID LINE. PT VERBALIZES UNDERSTANDING OF PROCCEDURE. PT REPORTS FEELING COLD. WARM BLANKET PROVIDED. PT AFEBRIAL AT THIS TIME. SWELLING AND REDNESS TO SCROTAL AREA IMPROVED. PT DENIES ADDITIONAL REQUESTS OR COMPLAINTS. CALL LIGHT WITHIN REACH. BED RAILS UP.
--- NOTE | 2022-11-10 14:40 | NUR ---
MIDLINE INSERTION NOTE WAS CALLED TO PLACE A MIDLINE FOR POOR IV ACCESS. THE PT REPORTS HE HAS HAD A MIDLINE BEFORE. DISCUSSED RISKS AND BENEFITS. PT WISHES TO PROCEDE. PT'S ELFT ARM WAS EXAMINED. THE BASILIC, BRACHIAL, AND CEPHALIC VEINS WERE ALL EXAMINED. PT'S LEFT CEPHALIC VEIN WAS CHOSEN, THE VEIN WAS LARGE ENOUGH THE VEIN TO CATHETER RATIO WAS 9%. VEIN RETURNED RED, NONPULSITILE BLOOD. PT REPORTS NO PAIN, NO SWELLING NOTED. PT TOLERATED THE PROCEDURE WELL.
--- NOTE | 2022-11-10 15:19 | NUR ---
THIS RN TO ROOM TO CHECK ON PT. PT RESTING IN BED. REPORTS MID LINE PLACE WENT "OK." PT REPORTS 8/10 PAIN IN RLE, DECLINES ADDITIONAL PAIN MEDICAITON AT THIS TIME. MID LINE ASSESSED, WNL. BRISK BLOOD RETURN NOTED. FLUSHED AND SALINE LOCKED PER PROTOCOL. ALCOHOL CAP APPLIED. PT DENIES ADDITIONAL REQUESTS OR COMPLAINTS. CALL LIGHT WITHIN REACH. BED RAILS UP.
--- NOTE | 2022-11-10 15:26 | NUR ---
PT HERE FOR CELLULITIS OF THE RIGHT LOWER EXTREMITY. PT INDEPENDANT IN ROOM UP TO RESTROOM AND TO CHAIR THIS SHIFT, CONTINUES TO PREFERE TIME IN BED. MID LINE PLACED THIS SHIFT, BRISK BLOOD RETURN PRESENT. RIGHT LEG REMAINS ELEVATED THROUGHOUT SHIFT. PT TOLERATING REGULAR DIET WITH MINIMAL APPITITE. IV ABX GIVEN. RIGHT LOWER EXTREMITY REMAINS SWOLLWEN AND REDDENED ALTHOUGH REDNESS IS WITHIN MARKED LINES AND APPERARS TO BE IMPROVING. PULSES TO RIGHT LOWER EXTREMITY FOUND WITH DOPPLER. RLE REMAINS HOT TO TOUCH. PRN PAIN MEDICATION GIVEN FOR 8-9/10 PAIN IN RLE THIS SHIFT. BLISTER TO RIGHT ANKLE MORE RAW WITH SLOUGH TISSUE NOTED THIS SHIFT. DRESSING CHANGED X2 SO FAR THIS SHIFT RELATED TO SATURATION SEROUS DRAINAGE. BLOOD CUTLURES PENDING. PT AFEBRIAL SO FAR THIS SHIFT. PT VOIDING QUANTITY SUFFICIENT. PT USES CALL LIGHT AND MAKES NEEDS KNOWN.
--- NOTE | 2022-11-10 16:49 | NUR ---
THIS RN TO ROOM TO CHECK ON PT. PT RESTING IN BED, AWAKEN AND ALERT. PT REPORTS 8/10 PAIN IN RLE, PT DECLINES ADDITIONAL PAIN MEDICAITON AT THIS TIME. DRESSING TO RIGHT ANKLE SATURATED WITH SEROUS FLUID. DRESSING REMOVED. NEW DRESSING PLACED, ABD PAD ADDED ON TOP OF NON ADHEARANT GAUZE AND ADAPTIC TO ASSIST WITH ABSORBING LEAKING FLUID, SECURED WITH KERLIX. PT REQUESTS ORANGE JUICE, PROVIDED. LUNCH TRAY REMOVED. PT DID NOT EAT ANY LUNCH. NO ADDITIONAL REQUESTS OR COMPLAINTS. CALL LIGHT WITHIN REACH. BED RAILS UP.
--- NOTE | 2022-11-10 17:43 | NUR ---
THIS RN TO ROOM TO CHECK ON PT. PT RESTING WITH EYES CLOSED, RESPIRATIONS EVEN AND UNLABORED. DINNER AT BEDSIDE. BED RAILS UP. CALL LIGHT WITHIN REACH. PT ALLOWED TO REST.
--- NOTE | 2022-11-10 18:40 | NUR ---
THIS RN TO ROOM TO CHECK ON PT. PT RESTING IN BED, REPROTS FEELING REALLY TIRED AND WITH PAIN AT 9/10. PT GROANING. TEMPERATURE NTOED TO BE 101.7. REASSESSED AND FOUND TO BE 101.9. BLOOD CULTURES COLLECTED FROM LEFT MID LINE BY ALEJANDRA ALLEN, 10ML NS FLUSH WITH 10ML WASTE AND 11ML BLOOD DRAW. LINE FLUSHED AND SALINE LOCKED PER PROTOCOL. ALCOHOL CAP APPLIED. 2ND SET OF CULTURES DRAWN WITH 22G BUTTER FLY NEEDLE STRAIGHT STICK TO RIGHT HAND, 10ML LAB DRAW. GAUZE AND COBAN APPLIED. DR HUIZAR CALLED AND UPDATED. REPORTS NO NEED FOR LACTIC AT THIS TIME. ABX ORDERS ADDED. TYELNOL AND IBUPROFEN GIVEN. (SEE MAR). PT RESTING IN BED. HEAD OF BED ELEVATED TO 30 DEGREES. ICE WATER REFILLED. PO FLUIDS ENCORAUGED. PT UPDATED ON PLAN OF CARE, VERBALIZES UNDERSTANDING. NO ADDITONAL REQUESTS OR COMPLAINTS AT THIS TIME. CALL LIGHT WITHIN REACH. BED RAILS UP.
--- NOTE | 2022-11-10 19:39 | NUR ---
RECEIVED REPORT FROM DAY SHIFT RN. PATIENT IS RESTING IN BED W/RLE ELEVATED. PATIENT DENIES ANY FURTHER NEEDS. CALL LIGHT IN REACH. IV ABX INFUSING PER ORDER.
--- NOTE | 2022-11-10 20:20 | NUR ---
PATIENT ASSESMENT COMPLETED. PATIENT IS RESTING IN BED W/RLE ELEVATED ON PILLOWS. PATIENTS VITALS TAKEN AND RECORDED. INTAKE AND OUTPUT RECORDED. PATIENTS IV ABX COMPLETED INFUSING. DONAL LACY HAS BLOOD RETURN AND IS NOW SL PER ORDER. PM MEDS PER ORDER. PATIENT RATES PAIN AT A 9/10, SCHEDULED PAIN MEDS PER ORDER. PATIENT PROVIDED WITH FRESH ICE WATER. DISCUSSED PLAN OF CARE AND ALL QUESTIONS ANSWERED. PATIENT DENIES ANY FURTHER NEEDS. CALL LIGHT IN REACH.
--- NOTE | 2022-11-10 22:31 | NUR ---
PATIENT IS RESTING IN BED WATCHING TV. PATIENT RATES PAIN AT A 9/10 AND DENIES THE NEED FOR INTEVENTION AT THIS TIME. CALL LIGHT IN REACH.
--- NOTE | 2022-11-11 00:19 | NUR ---
PATIENT IS RESTING IN BED ON RIGHT SIDE, RLE ELEVATED ON PILLOWS. PATIENT REPORTS 8/10 PAIN IN RLE, PRN MOTRIN GIVEN PER ORDER. PATIENT AFEBRILE AT THIS TIME. PATIENT PROVIDED WITH FRESH ICE WATER. PATIENT DENIES ANY FURTHER NEEDS. CALL LIGHT IN REACH.
--- NOTE | 2022-11-11 02:16 | NUR ---
PATIENT IS RESTING IN BED WITH EYES CLOSED, RR 16. CALL LIGHT IN REACH.
--- NOTE | 2022-11-11 03:15 | NUR ---
PATIENTS IV ABX INFUSING PER ORDER. PATIENT RATES PAIN AT A 8/10 AND DENIES THE NEED FOR INTERVENTION AT THIS TIME. PATIENT DENIES ANY NEEDS. CALL LIGHT IN REACH.
--- NOTE | 2022-11-11 04:01 | NUR ---
PATIENTS IV ABX COMPLETED INFUSING. PATIENT IS RESTING IN BED IWTH EYES CLSOED, RR 16. CALL LIGHT IN REACH.
--- NOTE | 2022-11-11 05:15 | NUR ---
PATIENTS VITALS TAKEN AND RECORDED. INTAKE AND OUTPUT RECORDED. NEW DRESSING IN PLACE ON RLE. PATIENTS MIDLINE FLUSHED WITH 10ML OF NS, 1O ML OF BLOOD WASTE, BLOOD DRAWN AND PLACED IN APPROPRIATE TUBES, PATIENTS MIDLINE FLUSHED WITH 10ML NS AND SL PER ORDER. PATIENTS BLOOD LABELED AND SENT TO LAB. PATIENT RATES PAIN AT A 8/10 AND DENIES THE NEED FOR INTERVENTION AT THIS TIME. PATIENT DENIES ANY FURTHER NEEDS. CALL LIGHT IN REACH.
--- NOTE | 2022-11-11 05:38 | NUR ---
PATIENT IS RESTING IN BED WITH EYES CLSOED, RR 16. CALL LIGHT IN REACH. RLE EXTREMITIE ELEVATED ON X3 PILLOWS. CALL LIGHT IN REACH.
--- NOTE | 2022-11-11 07:33 | NUR ---
RECIEVED BEDSIDE REPORT FROM ALEJANDRA BORJA. PT WAS SLEEPING, BREATHING EVEN AND UNLABORED. ROUSED, BUT DID NOT WAKE DURING WOUND ASSESSMENT. REDNESS IS RECEEDING FROM OUTLINED AREA, BLISTER ON ANKLE APPEARS RED AND ANGRY. DOPPLER POINTS MARKED. NO NEEDS AT THIS TIME.
--- NOTE | 2022-11-11 10:45 | NUR ---
WOUND NURSE CONSULT NOTE WOUND CONSULT RECEIVED TO EVALUATE RLE WOUND. PATIENT WITH A HISTORY OF CELLULITIS, LYMPEDEMA, AND PRE-DM. REDNESS IS OUTLINED AND RECEDING. PICTURES AND MEASUREMENTS TAKEN. LATERAL RLE ANKLE WOUND: MEASURES 2.3X7.9X0.2. DEEP TISSURE INJURY, POSSIBLE ABCESS. 3+ EDEMA PRESENT IN RLE. JANETTE-WOUND IS ESCORIATED WITH SLOUGH TISSUE. WOUND BED IS BOGGY, RED, NON-GRANULATING. AN AREA OF PALE NON-BLANCHABLE TISSUE IS PRESENT. DRAINGING LARGE AMOUNTS OF YELLOW SEROUS FLUID. NO ODOR PRESENT. CALL MADE TO DR HUIZAR RECOMMENDING IMAGING. CONTROL DRAIANGING PENDING RESULTS AND POSSIBLE SURGICAL CONSULT. KEEP LEG ELEVATED ON PILLOW AT OR ABOVE HEART.
--- NOTE | 2022-11-11 12:30 | NUR ---
ULTRASOUND IN TO COMPLETE ULTRASOUND OF R ANKLE. ABX INFUSED OVER 2 MINUTES, PT OTHERWISE SALINE LOCKED. ASSISTED TO BEDSIDE FOR VOID. VOIDING WELL. ADVISED WOUND CARE NURSE HIS WOUND IS UNCOVERED AT THE MOMENT UNTIL SHE CAN ASSIST WITH DRESSING.
--- NOTE | 2022-11-11 12:48 | NUR ---
DR BURGOS IN TO DO SURGICAL CONSULT FOR PATIENT. ENTERPRISE SOFTWARE DEVELOPER FOLLOWED ROUNDING.
--- NOTE | 2022-11-11 13:15 | NUR ---
ROUNDED WITH DR BURGOS WHO ASSESSED ANKLE. PLAN FOR SURGERY TOMORROW. RISK AND BENEFITS DISCUSSED BY DR TO PATIENT. PATIENT AGREEABLE TO PLAN. CONCENT SIGNED. ORDERS RECEIVED TO KEEP LEG ELEVATED ABOVE HEART AND CONTROL DRAINAGE.
--- NOTE | 2022-11-11 14:11 | NUR ---
REPORT RECEIVED. THIS NURSE TAKING OVER CARE OF PATIENT. ROUNDED ON PATIENT. HE IS AWAKE IN BED WATCHING TV. DENIES NEEDS AT THIS TIME. CALL LIGHT IN REACH. SALINE LOCKED AT THIS TIME.
--- NOTE | 2022-11-11 17:57 | NUR ---
VITALS DUE. THIS RN TO ROOM. PT RESTING IN BED WITH RIGHT LEG ELEVATED. PT REPORTS HE IS "SURVIVING." PT STATES FEEING TIRED AND COLD. TEMPERATURE OF 100.2. PT REPORTS 9/10 PAIN IN RIGHT LOWER EXTREMITY. DR. HUIZAR UPDATED, NO NEW ORDERS. MEDICATION GIVEN, SEE MAR. PT DENIES ADDITIONAL REQUESTS OR COMPLAINTS. CALL LIGHT WITHIN REACH. ICE WATER REFILLED.
--- NOTE | 2022-11-11 18:32 | NUR ---
ABX DUE. MID LINE ASSESSED, WNL, BRISK BLOOD RETURN NOTED. ABX STARTED (SEE MAR). PT REPORTS FEELING "A LITTLE" BETTER. PT WATCHING TV. NO ADDITIONAL REQUESTS OR COMPLAINTS. CALL LIGHT WITHIN REACH. BED RAILS UP.
--- NOTE | 2022-11-11 19:15 | NUR ---
PT CALL LIGHT ON. PUMP ALARMING, ABX INFUSION COMPLETE. MID LINE ASSESSED, WNL. BRISK BLOOD RETURN NOTED. LINE FLUSHED AND SALINE LOCKED PER PROTOCOL, ALCOHOL CAP APPLIED. TEMPERATURE REASSESSED, NOW 99.7. PT REPORTS 8/10 PAIN IN RLE, PT DENIES NEED FOR ADDITIONAL PAIN MEDICATION. PT REPORTS HUNGER. SANDWICH BOX PROVIDED. PT DENIES ADDITIONAL REQUESTS OR COMPLAINTS. CALL LIGHT WITHIN REACH. PTS PRIMARY RN UPDATED.
--- NOTE | 2022-11-11 19:33 | NUR ---
RECEIVED REPORT FROM ALEJANDRA ALMARAZ.
--- NOTE | 2022-11-11 20:23 | NUR ---
ROUNDED. PT ATE 100% SANDWICH BOX, HE DIDN'T EAT HIS "DINNER" PER AM NURSE. DENIES NEEDS. POC DISCUSSED. RIGHT LEG ELEVATED ON PILLOWS. WHITE BOARD UPDATED.
--- NOTE | 2022-11-11 20:40 | NUR ---
ORDERS RECEIVED FROM DR HUIZAR, READ BACK CONFIRMED, IV FLUIDS AT MIDNIGHT. SEE MARS
--- NOTE | 2022-11-12 00:05 | NUR ---
PT NPO, OFFERED DRINK PRIOR TO MIDNIGHT, HE REFUSED. IV FLUIDS NOW INFUSING. PT EYES CLOSED, RESP EVEN UNLABORED, WILL WAKE WHEN SPOKEN TOO.
--- NOTE | 2022-11-12 03:49 | NUR ---
into room to start antibiotic prior to this time, noted pt without dressing on right ankle. Woke pt, he said it fell off when he used the bathroom so he threw it in the garbage. New dressing applied after cleaning with wound hall cleaner. Painful. Redressed. clean linens provided.
--- NOTE | 2022-11-12 06:46 | NUR ---
PT BACK TO BED AFTER PRESURGERY WIPE DOWN, WELL LINENS, GOWN CHANGE. TOLERATED POORLY THE TRANSFER TO RECLINER DUE TO INCREASE PAIN, THROBBING WHEN FOOT DOWN. DRESSING INTACT AFTER REPLACING PRIOR TO THIS NOTE. R/0, SLEPT WELL. VOIDING UNMEASURED. PICC FLUSHED, BLOOD RETURN; CURRENTLY INFUSING FLUIDS. C/O 05/06 RLE PAIN, MED WITH TYLENOL WITH SIP WATER.
--- NOTE | 2022-11-12 06:54 | NUR ---
DR BURGOS CALLED REGARDING MENTION IN HIS NOTE ABOUT A POSSIBLE XRAY PRIOR TO SURGERY. ORDERS GIVEN FOR XRAY, ORDERS ENTERED REAPEAT BACK PERFORMED.
--- NOTE | 2022-11-12 06:55 | NUR ---
CALL MADE TO MD PER REQUEST OF PRIMARY RN CHANG. MD BURGOS MENTIONED IN PROGRESS NOTE TO POSSIBLY DO AN X-RAY ON RIGHT EXTREMITY, BUT NO ORDERS IN PLACE. TELEPHONE ORDER READ BACK TO PLACE 2 VIEW X RAY ON RIGHT ANKLE. DAYSHIFT ALEJANDRA KHAN PLACING ORDER AT THIS TIME.
--- NOTE | 2022-11-12 07:17 | NUR ---
REPORT RECEIVED FROM ALEJANDRA DOWNING. PT RESTING IN BED WITH EYES CLOSED, RESPRIATIONS EVEN AND UNLABORED. RIGHT LEG ELEVATED ON 3 PILLOWS. BED RAILS UP. CALL LIGHT WITHIN REACH. PT ALLOWED TO REST.
--- NOTE | 2022-11-12 08:13 | NUR ---
MORNING ASSESSMENT AND MEDICATION DUE. PT RESTING IN BED WITH EYES CLOSED. AWAKENS TO VOICE AND MOVMEMENT IN THE ROOM. PT ALERT AND OREINTED TO ALL. PT STATES XRAY WENT "FINE." PT REPORTS 9/10 PAIN IN RIGHT LOWER LEG AT THIS TIME. SEE MAR FOR MEDICATION GIVEN. DRESSING TO RIGHT LOWER LEG SATURATED WITH SEROUS FLUID. CUT FREE. WOUND NOTED TO HAVE SIGNIFICANTLY MORE SLOUGH TISSUE THAN SEEN 2 DAYS AGO BY THIS RN. NEW PHOTOGRAPHS TAKE. WOUND SOFT TO TOUCH AND SLIGHTLY BOGGY. REDNESS TO RIGHT FOOT AND ANKLE APPEARS INCREASED FROM TWO DAYS AGO. HEAT REMAINS PRESENT THROUGHOUT LOWER LEG WITH SIGNIFIANT SWELLING THROUGHOUT LET. RENDESS TO UPPER LEG AND UPPER CLAF REMAINS WITHIN MARKED LINE. PT REPORTS LEG FEELS "TIGHTER" TODAY AND "FUNNY FEELING." PT ATTRIBUTES THIS TO COBAN THAT WAS PLACED ARROUDN DRESSING. COBAN REMOVED. NEW DRESSING PLACED PER MD ORDER WITH ADAPTIC, NON ADHEARANT GAUZE, ABD PAD AND KERLIX. STRONG PEDIAL AND TIBIALIS PULSES FOUND WITH DOPPLER TO RIGHT LOWER EXTREMITY. STRONG PULSES FLET TO LEFT LOWER EXTREMITY. SCROTAL REDNESS AND MILD SWELLING CONTINUE, UNCHANGED. PT RETURNS TO RESTING WITH EYES CLOSED. NO ADDITIONAL REQUESTS OR COMPLAINTS. CALL LIGHT WITHIN REACH. BED RAILS UP.
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
--- NOTE | 2022-11-12 09:09 | NUR ---
REPORT GIVEN TO SYMONE HENRY RN, WHO IS TAKING PT TO SURGERY. JOSELIN FRIEDMAN TO BEDSIDE TO REVIEW PLAN OF CARE WITH PT. PT VERBALIZES UNDERSTANDING AND STATES HIS QUESTIONS HAVE BEEN ANSWERED. MID LINE SWITCHED TO LR ON STRAIGHT TUBING PER OR ORDER. PT TO OR. NO ADDITIONAL REQUESTS OR CONCERNS. PT REPORTS 8/10 PAIN IN RIGHT LOWER EXTREMITY AND DENIES NEED FOR ADDITIONAL PAIN MEDICATION AT THIS TIME.
--- NOTE | 2022-11-12 10:43 | NUR ---
PT ARRIVED FROM PACU. REPORT RECEIVED FROM ALEJANDRA BOO. PT AWAKE AND ORIENTED TO ALL ALTHOUGH REMAINS DROWSY. PT VERBALZES UNDERSTANDING OF PROCEEDURE BUT IS FORGETFUL OF EVENS OVER THE PAST 30 MINUTES. PT REPORTS 9/10 PAIN IN RIGHT FOOT, STATING "OH, I CAN FEEL THAT." SEE MAR FOR MEDICATION GIVEN. WOUND VAC IN PLACE. GREEN LIGHT FLASHING WITH 120MMHG NEGATIVE PRESSURE THERAPY IN PLACE. DRESSING REMAINS WNL WITH SUCTION EVIDENT TO BLACK SPOUNGE. PEDIAL AND TIBIALIS PULSES FOUND WITH DOPPLER, WNL. REDNESS TO REMAINDER OF RIGHT LEG REMAINS UNCHANGED. PT DENIES NAUSEA AND REQUESTS FOOD. PT ASSISTED WITH ORDERING LUNCH. LUGN SOUNDS CLEAR. CPOX IN PLACE WITH OXGYEN SATURATIONS 98% ON 2L O2 BY NC. ROOM AIR TRIAL ATTEMPTED. PT DROPS TO 88%. PT PLACED ON 1L O2 BY MI WITH OXGYEN SATURATIONS OF 94%. LEMON ICE PROVIDED, PT TOLERATING WELL. FALL PRECAUTIONS AND CALL LIGHT USE REVIEWED WITH PT PT IS NOW BMAT LEVEL 3. PT VERBALIZES UNDERSTANDING. BED ALARM ON. CALL LIGHT WITHIN REACH BED RAILS UP.
--- NOTE | 2022-11-12 10:50 | NUR ---
11/12/22 1050 Edna Youngblood 1004 PT ARRIVED IN PACU NON RESPONSIVE TO NOXIOUS STIMULI. R ANKLE HAS WOUND VAC ON WITH SUCTION AT 120MMHG. 1015 PT REACTIVE. NO C/O'S AT THIS TIME. 1030 R LEG ELEVATED WITH [address] ORDERS. NO C/O'S AT THIS TIME. STATES "I'M STILL SLEEPY." 1040 TO ROOM 116. BED PLUGGED IN AND REPORT GIVEN TO RN.
--- NOTE | 2022-11-12 11:48 | NUR ---
VITALS AND ASSESSMENT DUE. PT RESTING WITH EYES CLOSED. PT AWAKENS TO VOICE. PT REPORTS 9/10 PAIN STATING "IT HURTS." DR HUIZAR CONSULTED REGARDING ADDITIONAL PAIN MEDICAITON. LUNG SOUNDS REMAIN CLEAR. CPOX IN PLACE, ROOM AIR TRIAL ATTEMPTED BUT PT CONTINUES TO RUTHIE PTO 88% ON ROOM AIR. PT REMAINS ON 1L O2 BY NC TO MAINTAIN OXGYEN SATURATIONS ABOVE 94%. WOUND VAC WNL WITH GREEN LIGHT INDICATORY ON AND 120MMHG NEGATIVE PRESSURE THERAPY IN PLACE, RIGHT LOWER EXTREMITY UNCHANGED, REMAINS ELEVATED ON 4 PILLOWS. PT DENEIS ADDITIONAL REQUESTS OR COMPLAINTS, DRIFTS BACK TO SLEEP. CALL LIGHT WITHIN REACH. BED RAILS UP.
--- NOTE | 2022-11-12 12:06 | NUR ---
ABX DUE. GIVEN ORDERED. PT REQUESTS ASSISTANCE UP TO RESTROOM. 1 PERSON ASSIST FOR LINE AND TUBE MANAGEMENT UP TO RESTROOM. PT VOIDS IN URINAL WITHOUT ISSUE. 1 PERSON ASSIST BACK TO BED. PT DENIES ADDITIONAL REQUESTS OR COMPLAINTS. CALL LIGHT WITHIN REACH. LEG ELEVATED ON PILLOWS X4. BED RAILS UP.
--- NOTE | 2022-11-12 12:48 | NUR ---
VITALS AND ASSESSMENT DUE. PT AWAKEN AND OREINTED AND WATCHING TV. WOUND VAC, WOUND, DRESSING AND RLE UNCHANGED. 120MMHG NEGATIVE PRESSURE REAMINS IN EFFECT. PT WEANED TO ROOM AIR WITH OXYGEN SATURATIONS ABOVE 94%. PT CONTINUES TO REPORT 9/10 PAIN AND REPORTS HE IS ABLE TO WAIT UNTIL 1500 WHEN PAIN MEDICAITON IS DUE. PT EATING LUNCH, DENIES NAUSEA. NO ADDITIONAL REQUESTS OR COMPLAINTS. CALL LIGHT WITHIN REACH. BED RAILS UP.
--- NOTE | 2022-11-12 12:58 | NUR ---
DR HUIZAR CONSULTED REGARDING LACTULOSE PT STATES HE HAS HAD A BOWEL MOVEMENT EVERY MORNING FOR THE LAST 3 DAYS. NOTED THAT THIS HAS NOT BEEN RECORDED. RECORD UPDATED. DR. HUIZAR STATES TO HOLD LACTULOSE AT THIS TIME. MEDICAITON HELD. PT UPDATED.
--- NOTE | 2022-11-12 13:44 | NUR ---
VITALS AND ASSESSMENT DUE. PT AWAKE, ALERT AND OREINTED TO ALL. WATCHING TV AND EATING LUNCH. PT REPORTS 9/10 PAIN IN RIGHT FOOT/LEG CONTINUES. PT CONTINUES TO REPORT "I'M USED TO IT" AND STATES HE WOULD LIKE TO WAIT UNTIL 1500 WHEN ADDITIONAL PAIN MEDICATION IS DUE. RIGHT LOWER LEG REMAINS SWOLLEN, RED AND HOT TO TOUCH. REDNESS REMAINS WITHIN MARKED OUTLINE. SKIN WRINKED AND TIGHT RELATE TO SWELLING. TIBIALIS AND PEDIAL PULSES FOUND TO RIGHT LEG BY DOPPLER. FOUND BY FEEL TO LEFT LOWER LEG. WOUND VAC REMAINS WNL WITH 120MMHG NEGATIVE PRESSURE THERAPY IN PLACE. GEREN LIGHT INDICATOR ON. PT REPORTS NORMAL SENSATION TO TOES AND IS ABLE TO MOVE TOES. SCROTAL REDNESS CONTINUES, IMPROVING. SMALL AMOUNTS OF SEROUS FLUID NOTED IN TUBING OF WOUND VAC. NO MEASUREABLE AMOUNTS AT THIS TIME. PT CONTINUES TO TOLEARTE ROOM AIR WITH OXGYEN SATUARTIONS ABOVE 92%, PT DEMONSTRATES USE OF I.S. X5 REACHING 2500ML. NO ADDITIONAL REQUESTS OR COMPLAINTS. CALL LIGHT WITHIN REACH. BED RAILS UP.
--- NOTE | 2022-11-12 14:45 | NUR ---
PAIN MEDICATION DUE. THIS RN TO ROOM PT CONTINUES TO REPORT 9/10 PAIN IN RIGHT LOWER EXTREMITY. SEE MAR FOR MEDICATION GIVEN. PT UP TO STAND WITH LINE AND TUBE MANAGEMENT. VOIDS IN URINAL WITHOUT ISSUE. PT DECLINES TIME UP TO CHAIR. PT BACK TO BED. RLE REMAINS ELEVATED ON 4 PILLOWS. WOUND VAC WNL. NO ADDITIONAL REQUESTS OR COMPLAINTS. CALL LIGHT WITHIN REACH. BED RAILS UP.
--- NOTE | 2022-11-12 15:48 | NUR ---
THIS RN TO ROOM TO CHECK ON PT. PT RESTING WITH EYES CLOSED, RESPIRATIONS EVEN AND UNLABORED, RR OF 16, OXYGEN SATURATION OF 94% ON ROOM AIR. BED RAILS UP. CALL LIGHT WITHIN REACH. PT ALLOWED TO REST.
--- NOTE | 2022-11-12 16:34 | NUR ---
THIS RN TO ROOM TO CHECK ON PT. PT HAS VOIDED 425ML CLEAR YELLOW URINE INTO URINAL. PT RESTING WITH EYES CLOSED AND AWAKENS TO MOVEMENT IN THE ROOM. PT REPORTS 9/10 PAIN BUT DECLINES ADDITONAL PAIN MEDICAITON. PT REQUESTS A SNACK, LEMON ICEY PROVIDED PER PT REQUEST. PT DENIES ADDITIONAL REQUESTS OR COMPLAINTS. CALL LIGHT WITHIN REACH. BED RAILS UP. OXYGEN SATURATION OF 93% ON RA.
--- NOTE | 2022-11-12 16:43 | NUR ---
PT HERE FOR CELLULITIS OF THE RIGHT LOWER EXTREMITY, NO POST OP DAY ZERO AFTER I&D OF RIGHT ANKLE WOUND. WOUND VAC NOW IN PLACE, WNL WITH 120MM HG NEGATIVE PRESSURE AND SMALL AMOUNTS OF SEROUS DRAINAGE. BMAT LEVEL 3 NOW FOR FOR LINE AND TUBE MANAGMENET. MID LINE WNL. RIGHT LEG REMAINS ELEVATED THROUGHOUT SHIFT. PT TOLERATING REGULAR DIET WITH IMPROVING APPITITE. IV ABX GIVEN. RIGHT LOWER EXTREMITY REMAINS SWOLLWEN AND REDDENED ALTHOUGH REDNESS IS WITHIN MARKED LINES. PULSES TO RIGHT LOWER EXTREMITY FOUND WITH DOPPLER. RLE REMAINS HOT TO TOUCH. PRN PAIN MEDICATION GIVEN FOR 8-9/10 PAIN IN RLE THIS SHIFT. PT AFEBRIAL SO FAR THIS SHIFT. PT VOIDING QUANTITY SUFFICIENT. PT USES CALL LIGHT AND MAKES NEEDS KNOWN.
--- NOTE | 2022-11-12 17:20 | NUR ---
THIS RN TO ROOM TO CHECK ON PT. PT RESTING WITH EYES CLOSED, AWAKENS TO MOVEMENT IN THE ROOM. OXYGEN SATURATION OF 93% ON ROOM AIR. PT DENIES NEED FOR ADDITONAL PAIN MEDICAITON AT THIS TIME. DINNER DELIVERED TO PT. CALL LIGHT WITHIN REACH. WOUND VAC WNL.
--- NOTE | 2022-11-12 18:50 | NUR ---
VITALS AND MEDICATION DUE. THIS RN TO ROOM. PT UP TO STAND AT EDGE OF BED TO VOID. TOELRATES WELL ALTHOUGH REPORTS PAIN IS STILL A 9/10. PT DENEIS NEED FOR ADDITIONAL PAIN MEDICAITON BUT IS ENCROAUGED TO NOTIFY NURSING STAFF IF HE FEELS THAT PAIN CONTROL IS NOT SUFFICIENT. PT VERBALIZES UNDERSTANDING. VITALS SIGNS STABLE. NO ADDITIONAL REQUESTS OR COMPLAINTS. CALL LIGHT WITHIN REACH. BED RAILS UP.
--- NOTE | 2022-11-12 19:35 | NUR ---
RECEIVED REPORT FROM DAY SHIFT RN. PATIENT IS RESTING IN BED WATCHING TV. PATIENT DENIES ANY NEEDS. CALL LIGHT IN REACH.
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
--- NOTE | 2022-11-12 21:35 | NUR ---
PATIENTS VITALS TAKEN AND RECORDED. INTAKE AND OUTPUT RECORDED. PATIENTS OM MEDS GIVEN PER ORDER. PATIENTS MIDLINE FLUSHED AND SL PER ORDER. PATIENT RATES PAIN AT A 9/10, SCHEDULED MEDS GIVEN PER ORDER. PM MEDS GIVEN PER ORDER. PATIENT IS RESTING IN BED WITH RLE ELEVATED ON [address] V[address] IN PL[address] AND IS AT 120 AND NO DRAINAGE IN THE CANISTER. REDNESS NOTED AND IS OUTLINED ON RLE. PATIENTS PEDAL PULSES AUSCULATED. PATIENT DENIES ANY FURTHER NEEDS. CALL LIGHT IN REACH.
--- NOTE | 2022-11-12 22:06 | NUR ---
PATIENT REPORTS 9/10 PAIN, PRN TYLENOL GIVEN PER ORDER. PATIENTS URINAL EMPTIED. PATIENT IS RESTING IN BED W/RLE ELEVATED ON X3 PILLOWS. PATIENT DENIES ANY FURTHER NEEDS. CALL LIGHT IN REACH.
--- NOTE | 2022-11-12 23:39 | NUR ---
PATIENT IS RESTING IN BED WATCHING TV. PATIENTS RLE IS ELEVATED ON X3 PILLOWS. PATIENT REPORTS 8/10 PAIN AND DENIES THE NEED FOR INTERVENTION AT THIS TIME. PATIENT PROVIDED FRESH ICE WATER. URINAL EMPTIED. NO FURTHER NEEDS NOTED. CALL LIGHT IN REACH.
--- NOTE | 2022-11-13 00:15 | NUR ---
BEDSIDE REPORT RECEIVED FROM ALEJANDRA BORJA, THIS RN TO TAKE OVER pt CARE AT THIS TIME. pt AWAKE AND RESTING IN BED, WATCHING TV. RLE ELEVATED IN BED WITH USE OF PILLOWS. REDDNESS NOTED BUT WITHIN OUTLINE AND CONTINUES TO RECEDE, WOUND VAC IN PLACE SET TO 120 MMHG SUCTION. NO CONCERNS OR NEEDS VERBALIZED, CALL LIGHT IN REACH.
--- NOTE | 2022-11-13 02:40 | NUR ---
ASSESSMENT COMPLETE, VSS. pt REMAINS ON CPOX D/T POST-OP. WOUND VAC REMAINS IN PLACE AT SUCTION-120MMHG. DRESSING C/D/I, SMALL AMOUT OUTPUT IN DRAINAGE CANISTER. RLE REMAINS ELEVATED, PEDAL PULSE TO RLE OBTAINED VIA DOPPLER. pt REPORTS PAIN IS TOLERABLE WHEN ASKED, DID NOT RATE ON 0-10 PAIN SCALE, DENIES NAUSEA. pt LEFT AWAKE AND WATCHING TV QUIETLY IN BED, DENIES NEEDS OR CONCERNS WHEN ASKED. CALL LIGHT IN REACH.
--- NOTE | 2022-11-13 03:40 | NUR ---
scheduled iv abx infusing as directed, iv midline wnl and brisk blood return noted prior to medical auditor, no additional needs requested when asked. call light in reach. pt watching tv in bed and laughing at times w/ show.
--- NOTE | 2022-11-13 04:49 | NUR ---
iv pump alamring, iv abx complete. iv midline flushed with 10mls ns and saline locked. no additional needs verbalized by pt. call light in reach.
--- NOTE | 2022-11-13 06:11 | NUR ---
lab draw collected via iv midline per policy, flushed post draw with 20mls ns and new clave in place with new alcohol cap in place. dressing c/d/i. vss and fresh water provided. urinal emptied and call light in reach. pt denies additional needs or concerns.
--- NOTE | 2022-11-13 07:33 | NUR ---
REPORT FROM TANK HOUSE SUPERVISOR RN
--- NOTE | 2022-11-13 08:00 | NUR ---
Spoke davian Saenz. He states he hopes the wound vac will work on his wound. It was placed over the weekend. Let him know I will work with Dr. Brown to request auth through [employer] and his insurance. He denies other needs. Texted Dr. Brown and asked if he could complete [employer] paperwork. He replied he will. Paperwork left at dictation desk.
--- NOTE | 2022-11-13 08:49 | NUR ---
MORNING ASSESSMENT IS COMPETE. MORNING MEDICATIONS GIVEN, PATIENT REFUSED BOWEL MEDS THIS MORNING, LAST BE WAS YESTERDAY. PATIENT IS RESTING IN BED WITH RLE ELEVATED ON PILLOWS, WOUND VAC IS INTACT, MINIMAL DRAINAGE IS NOTED. PATIENT RATES PAIN 9/10, GIVEN SCHEDULED HOME MEDICATIONS.
--- NOTE | 2022-11-13 09:24 | NUR ---
PATIENT IN BED RESTING WITH EYES CLOSED AT THIS TIME. VITALS AND I&O'S CHARTED. BREAKFAST LEFT AT BEDSIDE PATIENT STILL WANTS IT. CALL LIGHT IN REACH. NO FURTHER NEEDS AT THIS TIME.
--- NOTE | 2022-11-13 10:00 | NUR ---
Received paperwork from Dr. Brown. Opened box from [facility] with wound vac and supplies. No paperwork included. Emailed Bibi Enrique asking her to email the papers .
--- NOTE | 2022-11-13 10:03 | NUR ---
PATIENT ENCOURAGED TO KEEP RIGHT LEG ELEVATED, REFUSED TO HAVE PILLOWS ADJUSTED.
--- NOTE | 2022-11-13 12:00 | NUR ---
All papers signed and completed by myself, Dr. Brown, and pt. Notified admitting pts request for address correction on 11/07/22 was not completed. Again requested address change as I will be requesting supplies delivered to his home address from [facility]. All papers scanned to Bibi Enrique from [facility] for auth. Spoke with Dr. Tello and he states he would like this pt to have IV antibiotics after DC. He spoke with pt and he would like to go to OP for antibiotics and wound care.
--- NOTE | 2022-11-13 12:47 | NUR ---
PATIENT IS SITTING UP IN BED TO EAT LUNCH. ENCOURAGED PATIENT TO KEEP RIGHT LEG ELEVATED, AND HE PLANS TO LOWER THE HEAD OF BED WHEN HE IS DONE EATING. PATIENT DENIES OTHER NEEDS AT THIS TIME.
--- NOTE | 2022-11-13 13:51 | NUR ---
PT ALERT, ORIENTED AND LAYING IN BED WATCHING TV. PT WELCOMING, SAID HE FEELS HE IS IMPROVING. LEGS ELEVATED, ENCOURAGED HIM TO DO THE SAME FOLLOWING DC PT ACKNOWLEDGED. GAVE ENCOURAGEMENT AND BLESSING WILL FOLLOW
--- NOTE | 2022-11-13 14:11 | NUR ---
VITALS AND I&O'S DONE. PATIENT UP TO BATHROOM AT THIS TIME, SBA. CALL LIGHT IN REACH. NO FURTHER NEEDS AT THIS TIME.
--- NOTE | 2022-11-13 14:46 | NUR ---
PATIENT UP TO BATHROOM TO , BACK IN BED AND DENIES NEEDS.
--- NOTE | 2022-11-13 16:27 | NUR ---
PATIENT IS SLEEPING, RIGHT LEG IS ELEVATED ON 4 PILLOWS.
--- NOTE | 2022-11-13 18:00 | NUR ---
both nares swabbed without complication. sample taken to lab.
--- NOTE | 2022-11-13 18:24 | NUR ---
PATIENT IN BED RESTING WITH EYES CLOSED. VITALS AND I&O'S CHARTED. TEMP. HIGH, RNI NOTIFIED. CALL LIGHT IN REACH. NO FURTHER NEEDS AT THIS TIME.
--- NOTE | 2022-11-13 18:38 | NUR ---
PATIENT IS FEBRILE, CALL TO DR. HERNANDEZ. PLAN TO RESTART AZTREONAM AND REPEAT BLOOD CULTURES.
--- NOTE | 2022-11-13 19:30 | NUR ---
REPORT RECEIVED FROM DAY SHIFT RN. PT LYING IN BED ALERT AND ORIENTED. DENIES NEEDS. WHITE BOARD UPDATED. CALL LIGHT IN REACH.
--- NOTE | 2022-11-13 20:45 | NUR ---
CALL LIGHT ANSWERED. CPOX WAS ALARMING. THIS CURTAIN CUTTER HAND CHECKED THE SETTING. URINAL EMPTIED. ICE WATER REFRESHED. DENIES OTHER NEEDS AT THIS TIME.
--- NOTE | 2022-11-13 22:02 | NUR ---
EVENING ASSESSMENT COMPLETE. SCHEDULED MEDS ADMIN PER EMAR. PT REPORTS RLE PAIN 05/06. TEMP ELEVATED 99.6. PRN TYLENOL ADMIN PER ORDER. ASSISTED PT TO REPOSITION IN BED. RLE ELEVATED ON PILLOWS X 4 ABOVE THE HEART AT THIS TIME. WOUND VAC IN PLACE TO 120 MMHG. SCANT AMOUTN YELLOW DRAINAGE. NOTED. RLE EDEMA, WARMTH, AND REDNESS NOTED. REDNESS WITHIN OUTLINE. CMS INTACT. MIDLINE IN LEFT ARM FLUSHED WITH NS. NO BLOOD RETURN NOTED AT THIS TIME. DRESSING CDI. IV ABX INFUSING WNL. PT DENIES QUESTIONS OR CONCERNS. CALL LIGHT IN REACH.
--- NOTE | 2022-11-14 02:00 | NUR ---
PT AWAKE IN BED. URINAL EMPTIED. FRESH WATER PROVIDED. TEMP 98.2. RLE ELEVATED ON PILLOWS X 4. NO FURTHER NEEDS. CALL LIGHT IN REACH.
--- NOTE | 2022-11-14 04:45 | NUR ---
PT RESTING IN BED WITH EYES CLOSED. RESPIRATIONS EVEN. CALL LIGHT IN REACH.
--- NOTE | 2022-11-14 06:41 | NUR ---
VS AND I&O OBTAINED. IV ABX INFUSING WNL. ASSISTED TO REPOSITION IN BED. RLE ELEVATED ON PILLOWS X 4 ABOVE HEART LEVEL AT THIS TIME. NO FURTHER NEEDS. CALL LIGHT IN REACH.
--- NOTE | 2022-11-14 07:12 | NUR ---
Received report from manufacturing shift supervisor nurse No ROBERTS.
--- NOTE | 2022-11-14 09:30 | NUR ---
PATIENT RESTING IN BED WITH BREAKFAST NEXT TO HIM. PATIENT WOULD LIKE TO WAIT A LITTLE BIT TO EAT YET. HE WOULD LIKE AN APPLEJUICE. PATIENT GIVEN MORNING MEDICATIONS AND RIGHT LEG ELEVATED ON ANOTHER PILLOW. WOUND VAC IN PLACE AND RUNNING. CALL LIGHT WITHIN REACH.
--- NOTE | 2022-11-14 11:55 | NUR ---
PATIENT IS ON A REGULAR DIET. HE IS EATING WELL. NO CHEWING/SWALLOWING ISSUES. HE IS USING THE PERSONAL [employer] MENU FOR MEALS. HE HAS NOT QUESTIONS OR CONCERNS FOR ME AT THIS TIME. NO NUTRITION INTERVENTION NEEDED AT THIS TIME.
--- NOTE | 2022-11-14 12:45 | NUR ---
Spoke with pt, he denies needs. Updated I emailed [facility] today, they have not received auth from his insurance as of yet. They will notify me when they do. Dr. Brown ad Dr. Tello updated, no auth for wound vac at this time.
--- NOTE | 2022-11-14 13:17 | NUR ---
PT ALERT, ORIENTED AND RESTING IN BED WITH LEGS BOTH ELEVATED.PT SEEMS TO BE AMBULATING VERY LITTLE. DISCUSSED THIS WITH PT, GAVE ENCOURAGEMENT. REQUEST MADE BY PT FOR PRAYER. GAVE BLESSING WILL FOLLOW
--- NOTE | 2022-11-14 14:33 | NUR ---
NURSE INTO PATIENTS ROOM TO START ANTIBIOTIC. PATIENT LAYING IN BED WATCHING TV. RIGHT LEG ELEVATED ABOUT THE HEART. PULSES CHECKED WITH DOPPLER. STRONG PEDAL PULSE ON RIGHT LEG. PATIENT HAS ORAL FLUIDS AT BEDSIDE AND CALL LIGHT WITHIN REACH. PATIENT DENIES ANY OTHER CARES.
--- NOTE | 2022-11-14 14:43 | NUR ---
PATIENT GIVEN SCHEDULED PAIN MEDICATIONS PER EMAR. PATIENT DOES HAVE PRN TYLENOL BUT DENIES THIS MEDICATION. PATIENT IS 8/ CURRENTLY IN THE RIGHT LOWER EXTREMITY.
--- NOTE | 2022-11-14 16:24 | NUR ---
PATIENT IV ANTIBIOTIC IS DONE RUNNING. PATIENT IS CURRENTLY SL ON THE LEFT ARM PICC LINE. PATIENT ASKED IF HE WOULD WANT TO GET UP AND TO THE CHAIR, PATIENT DENIES AT THIS TIME AND STATED HE WOULD LIKE A SHOWER AFTER DINNER AND WILL GET UP THEN. PATIENT STILL RATES PAIN 8.5 BUT DENIES WANTING ANY TYLENOL FOR PAIN.
--- NOTE | 2022-11-14 18:31 | NUR ---
PATIENT LAYING IN BED WATCHING TV. RIGHT LEG HAS BEEN ADJUSTED AND PILLOWS FLUFFED UP TO ELEVATE PATIENTS LEG ABOVE THE HEART. SHAINA NAGY BROUGHT TO THIS NURSE ATTENTION THAT TEMP WAS 100.3. THIS NURSE HAD PATIENT DO HIS IS AND TEMP WAS TAKEN AGAIN AND WAS 99.3. PATIENT ENCOURAGED TO CONTINUE TO DO HIS IS AND THE IMPORTANCE OF IT. PATIENT AGREES.
--- NOTE | 2022-11-14 19:27 | NUR ---
REPORT RECEIVED FROM DAY SHIFT RN. PT LYING IN BED ALERT AND ORIENTED. DENIES NEEDS. WHITE BOARD UPDATED. CALL LIGHT IN REACH.
--- NOTE | 2022-11-14 21:50 | NUR ---
PT RESTING WITH EYES CLOSED. AWAKENS EASILY. VS AND I&O OBTAINED. EVENING ASSESSMENT COMPLETE. SCHEDULED MEDS ADMIN PER EMAR. PT RATES RLE PAIN 8.5/10. SCHEDULED PAIN MEDS GIVEN. DENIES NAUSEA. ASSISTED TO REPOSITION IN BED. RLE ELEVATED ABOVE HEART ON PILLOWS X 4. WOUND VAC IN PLACE AT 120 MMHG WITH SMALL AMOUNT YELLOW DRAINAGE. CMS INTACT. FRESH WATER AND APPLE JUICE PROVIDED. PT DENIES QUESTIONS OR CONCERNS. CALL LIGHT IN REACH.
--- NOTE | 2022-11-14 22:59 | NUR ---
PT RESTING WITH EYES CLOSED. RESPIRATIONS EVEN. CALL LIGHT IN REACH.
--- NOTE | 2022-11-15 01:30 | NUR ---
PT RESTING IN BED WITH EYES CLOSED. RESPIRATIONS EVEN. RLE ELEVATED ON PILLOWS. URINAL EMPTIED. CALL LIGHT IN REACH.
--- NOTE | 2022-11-15 03:00 | NUR ---
PT AWAKE IN BED. URINAL EMPTIED. REPOSITIONED PILLOWS UNDER RLE. RLE ABOVE HEART. ASSESSMENT COMPLETE. NO FURTHER NEEDS.
--- NOTE | 2022-11-15 05:38 | NUR ---
PT RESTING WITH EYES CLOSED. AWAKENS EASILY. VS AND I&O OBTAINED. IV ABX INFUSING WNL. REPOSITIONED RIGHT LEG. ELEVATED WITH PILLOWS X 4. PT DENIES FURTHER NEEDS. CALL LIGHT IN REACH.
--- NOTE | 2022-11-15 07:15 | NUR ---
RECEIVED REPORT FROM BROACHING MACHINE OPERATOR ALEJANDRA POST.
--- NOTE | 2022-11-15 07:34 | NUR ---
PATIENT RESTING IN BED WITH HIS EYES CLOSED. PATIENT WAKES UP EASY TO QUESTIONS FROM THIS NURSE. PATIENT CURRENTLY USES THE URINAL AT BEDSIDE. RIGHT LEG IS ELEVATED ABOVE THE HEART ON PILLOWS. DOPPLER USED TO FIND PEDAL PULSE ON RIGHT LEG. PATIENT RATES PAIN 9/10 BUT DENIES WANTING TO TAKE ANY PRN PAIN MEDICATIONS. PATIENT HAS CALL LIGHT WITHIN REACH, HE WOULD LIKE TO SHOWER TODAY AND PER WE WILL CHANGE OUT WOUND VAC TODAY. PATIENT HAS FRESH WATER AND BEDSIDE AND ROOM IS CLEANED UP. PATIENT DENIES ANY OTHER CARES AT THIS TIME.
--- NOTE | 2022-11-15 07:39 | NUR ---
PATIENT EDUCATED ON THE IMPORTANCE OF USING HIS IS HE IS NOT WANTING TO GET UP TO THE CHAIR FOR MEALS.
--- NOTE | 2022-11-15 10:00 | NUR ---
WOUND VAC DRESSING REMOVED. DR. MCKEON IN ROOM. SKIN UNDER DRAPE PULLS OFF WITH DRAPE REMOVAL. NO NEW OPEN AREAS NOTED. CONTINUES TO HAVE AREAS OF DRY, PEELING SKIN. PATIENT YELLS OUT WITH REMOVAL OF SPONGE, PAIN DECREASES WITH SLOW DEEP BREATHS. LEFT OPEN FOR DR. BURGOS TO VISUALIZE. DR. BURGOS STATE OK FOR PATIENT TO SHOWER PRIOR TO NEW DRESSING APPLICATION.
--- NOTE | 2022-11-15 10:00 | NUR ---
AT NURSES STATION AND ADVISED TO GO AHEAD AND TAKE WOUND VAC OFF. WILL LOOK AT IT AND THEN PATIENT IS ABLE TO SHOWER AND THEN THE WOUND VAC WILL BE PLACED AGAIN BY NURSE RICARDO, ALEJANDRA. NURSE SILVA INTO REMOVE WOUND VAC. PATIENT WAS MEDICATED AT 0915. PAITENT TOLERATED WELL BUT WAS IN PAIN. ALSO AT BEDSIDE ALONG WITH THIS NURSE.
--- NOTE | 2022-11-15 10:04 | NUR ---
PATIENT IN BED WATCHING TV AT THIS TIME. RIGHT LEG ELEVATED. VITALS AND I&O'S CHARTED. RN REMOVED WOUND VAC SO PATIENT COULD SHOWER. SHOWER SET UP AND SUPPLIES PROVIDED. AM CARE SUPPLIES PROVIDED AT SINK, PATIENT IND. CALL LIGHT IN REACH. NO FURTHER NEEDS AT THIS TIME.
--- NOTE | 2022-11-15 10:37 | NUR ---
Text from Bibi Phan at [facility]. Pt's wound vac has been authorized by Insurance. UPdated Dr. Tello and Dr. Brown. Both state pt cannot dc today. Payment auth form from [facility] signed by pt and emailed secure to Bibi. Spoke with pt, he has showered and dressing is off. He is wanting to go home today. we discussed it is better to stay another day, than to go home to early. Pt states he is tired of the hospital, but understands.
--- NOTE | 2022-11-15 11:06 | NUR ---
ALEJANDRA SILVA AT BEDSIDE OF PATIENT CHANGEING WOUND VAC. THIS NURSE ALSO AT BEDSIDE. PATIENT GIVEN TYLENOL AFTER SHOWER AND DURING WOUND VAC CHANGE HIS PRIOR PAIN MEDICATION WAS NOT ENOUGH. PATIENT TOLERATING WELL.
--- NOTE | 2022-11-15 11:23 | NUR ---
WOUND VAC DRESSING APPLIED USING BLACK FOAM. TOLERATED WITH SOME COMPLAINTS OF DISCOMFORT. SEE EMAR. WOUND VAC THERAPY INITIATED. NO LEAKS NOTED.
--- NOTE | 2022-11-15 13:13 | NUR ---
PT ALERT 0RIENTED AND RN WORKING ON PT. WILL FOLLOW
--- NOTE | 2022-11-15 14:11 | PATH ---
[facility] [address] [place], [place] [address] Signed SPECIMEN(S): A RT ANKLE, PROD. OF DEBRIDEMENT SPECIMEN SOURCE: A. RT ANKLE, PROD. OF DEBRIDEMENT CLINICAL HISTORY: Right lower leg cellulitis. FINAL PATHOLOGIC DIAGNOSIS: Skin and soft tissue, right ankle, excision: - Skin and soft tissue with acute and chronic inflammation and necrosis. BRP:radha:C2NR MICROSCOPIC EXAMINATION: Histologic sections of all submitted blocks are examined by light microscopy. These findings, together with the gross examination, support the pathologic diagnosis. GROSS DESCRIPTION: The specimen, labeled and designated "Neno, right ankle products of debridement," is received in formalin and consists of three pieces of green-brown to red-brown soft tissue/skin (6.5 x 4.0 x 1.5 cm in aggregate). The tissue is sectioned to reveal a red-brown and tinted soft tissue. Harvest Crew Supervisor sections are submitted in cassette A1. AC (under the direct supervision of a pathologist) The Gross Description was prepared using a voice recognition system. The report was reviewed for accuracy; however, sound-alike word errors, addition and/or deletions may occur. If there is any question about this report, please contact Client Services. PERFORMING LABORATORY: The technical component was performed by [facility], [address] [place] [id number] (CLIA# [id number]). Professional interpretation was performed by [facility] [facility], [address] [place] [id number] (CLIA# [id number]). Diagnostician: Shaq Bender MD Pathologist Electronically Signed 11/15/2022 PATIENT NAME: NORMA BECERRA PATHOLOGY DATE OF : 83 REPORT #: [id number] PHYSICIAN: PEE VANEGAS PCP: CHEYENNE WHARTON PA-C REPORT IS CONFIDENTIAL AND NOT TO BE RELEASED WITHOUT AUTHORIZATION [address] [address] Signed Copies: ~ PATIENT NAME: NORMA BECERRA PATHOLOGY DATE OF : 83 REPORT #: [id number] PHYSICIAN: PEE PATHOLOGY PCP: CHEYENNE WHARTON PA-C REPORT IS CONFIDENTIAL AND NOT TO BE RELEASED WITHOUT AUTHORIZATION
--- NOTE | 2022-11-15 14:24 | NUR ---
PATIENT RESTING IN BED WATCHING TV. RIGHT LEG REPOSTIONED AND PLACED BETTER ON THE PILLOWS TO ELEVATE ABOVE THE HEART. WOUND VAC IS ON AND WORKING. PATIENT REALLY WANTS TO GO HOME. STATES, "I CANT PAY MY BILLS LAYING IN A HOSPITAL BED".
--- NOTE | 2022-11-15 17:50 | NUR ---
PATIENT FINISHED DINNER. PATIENTS AT BEDSIDE AND IS CURIOUS TO THE PLAN AND WHEN PATIENT IS GOING HOME. THIS NURSE ADVSIED AT BEDSIDE WITH THAT AND WERE IN TODAY AND ADVISED PATIENT THAT WE ARE WAITING FOR BLOOD CULTURES AND WOUND CULTURES TO COME BACK SO THAT WE CAN SET PATIENT UP FOR HIS OUTPATIENT ANTIBIOTICS. PATIENT THOUGHT THAT HE ONLY HAD TO STAY UNTIL CASE MANAGEMENT SET UP THE WOUND VAC AND THATS WHY HE DIDNT UNDERSTAND WHY HE IS STILL HERE. NOW THAT PATIENT AWARE OF CULTURES PENDING HE UNDERSTANDS. PATIENTS IS CONCERNED HE CALLED HIS BOSS AND HAD THEM PUT HIM ON THE SCHEDULE FOR SUNDAY NIGHT. AND PATIENT DENIES ANY OTHER QUESTIONS.
--- NOTE | 2022-11-15 19:33 | NUR ---
RECEIVED BEDSIDE REPORT FROM OFFGOING SHIFT, HOURLY ROUNDING INITIATED
--- NOTE | 2022-11-15 21:11 | NUR ---
vs and i&o's collected for primary rn ysabel. pt awake and watching tv. wound vac to cont. 120mmhg suction, working wnl. rle elevated in bed with use of pillows. urinal emptied and fresh water provided. call light in reach. no additional needs or concerns verbalized by pt.
--- NOTE | 2022-11-15 21:50 | NUR ---
IN PT ROOM FOR MEDICATION ADMINISTRATION, ROUNDING. PT RESTING ON BACK, LEG ELEVATED, MEDICATION COMPLIANT WITH NO COMPLAINT OF DISCOMFORT, PT GIVEN PAIN MEDICATION ORDERED, CALL LIGHT IN REACH
--- NOTE | 2022-11-16 01:06 | NUR ---
IN PT ROOM FOR ROUNDING. PT RESTING ON BACK, LEG ELEVATED, BREATHING EVEN AND UNLABORED WITH NO INDICATION OF PAIN OR DISCOMFORT, CALL LIGHT IN REACH
--- NOTE | 2022-11-16 01:44 | NUR ---
iv pump alarming, iv silenced and primary rn to saline lock pt. no additional needs or concerns verbalized by pt. personal belongings and call light in reach.
--- NOTE | 2022-11-16 04:23 | NUR ---
IN PT ROOM FOR ROUNDING. PT RESTING ON BACK, LEG ELEVATED ABOVE HEART LEVEL, EYES CLSOED, BREATHING EVEN AND UNLABORED WITH NO INDICATION OF PAIN OR DISCOMFORT. PT CALL LIGHT IN REACH
--- NOTE | 2022-11-16 05:21 | NUR ---
PT RESTING IN BED. VITALS AND IS AND OS COMPLETE. PT URINAL EMPTIED. PT DECLINED GETTING UP TO CHAIR. NO FURTHER NEEDS. CALL LIGHT WITHIN REACH.
--- NOTE | 2022-11-16 07:25 | NUR ---
bedside report from ysabel newell, wound vac in place to r ankle, elevated above heart. call light in reach.
--- NOTE | 2022-11-16 08:15 | NUR ---
Pt sleeping, not awakened.
[2022-11-16] MEDS ORDERED: STIMULANT LAXA1 EACH PO (10:36)
[2022-11-16] MEDS ORDERED: CEFPODOXIME PR200 MG PO (10:37)
[2022-11-16] MEDS ORDERED: DOXYCYCLINE HY100 MG PO (10:38)
--- NOTE | 2022-11-16 11:25 | NUR ---
ALEJANDRA BILLINGSLEY, PUT IN A CONSULT FOR DIET EDUCATION FOR PRE-DIABETES AND OBESITY. PATIENT IS GOING HOME TODAY. HIS AIC IS 6.0% AND HIS BMI IS 42. HE WORKS [employer] 10 PM TO 6 AM. HE USUALLY EATS 2-3 EGGS FOR BREAKFAST. USUALLY HE EATS BREAKFAST, MAYBE A SNACK, AND DINNER. HE DOESN'T EAT MUCH STARCHY FOODS. I GAVE HIM HANDOUTS ON WHAT IS PRE-DIABETES, REMINDING HIM THAT THIS IS A GOOD TIME TO MAKE SMALL IMPROVEMENTS IN FOOD AND DRINK CHOICES WELL BEING MORE ACTIVE WHEN HIS LEG IS HEALED UP, SO THE AIC HOPEFULLY WILL COME DOWN. PORTION SIZES HANDOUT, HEALTHY PLATE PICTURE, SNACK IDEAS, AND DIET BASICS HANDOUT ALL PROVIDED. ENCOURAGED PATIENT TO INCLUDE NON-STARCHY VEGGIES WITH LUNCH AND DINNER ALONG WITH LEAN PROTEIN AND A SMALL FRUIT OR SMALL PORTION OF RICE OR BREAD. I ALSO REMINDED HIM TO NOT SKIP MEALS BECAUSE THEN HE CAN BECOME WAY TOO HUNGRY AND OVEREAT. HE WAS RECEPTIVE AND APPRECIATED MY TIME. I MENTIONED WE DO OUTPATIENT APPOINTMENTS WELL. MY CARD WITH MY CONTACT INFO WAS PROVIDED.
--- NOTE | 2022-11-16 12:30 | NUR ---
PT GIVEN PO TYLENOL FOR R LEG PAIN 05/06 PO MED GIVEN WITH LUNCH - LEG ELEVATED AND WOUND VAC WNL. DIETARY CONSULT IS COMPLETE WITH MYESHA - PT APPREACIATED EDUCATION ON NUTRITION.
--- NOTE | 2022-11-16 13:04 | NUR ---
PT TO DC LATER TODAY. SEEMS TO HAVE SOME CONFUSION REGARDING WHERE HE WILL GO FOR IV ABX OT AND WOUND VAC. ALEJANDRA SILVA WILL CLARIFY FOR PT. GAVE ENCOURAGEMENT STILL IN BED WITH LE ELEVATED. GAVE ENCOURAGEMENT, PT THANKED ME FOR CHECKING IN ON HIM. SAYS HE THINKS MAYBE HIS WILL BE HERE AT ME. BLESSING GIVEN
== END 2022-11-16 15:40 | disposition home or self-care (01) | DRG 854 ==
LOC: ED 23:45 → MS 11-06 00:41 → CCU 11-06 00:41 → MS 11-06 18:02
PROVIDERS: ADMIT Internal Medicine; ATTEND Family Medicine
PROC: 3E03329 Introduction of Other Anti-infective into Peripheral Vein, Percutaneous Approach (ICD-10-PCS; 2022-11-06)
PROC: 05HF33Z Insertion of Infusion Device into Left Cephalic Vein, Percutaneous Approach (ICD-10-PCS; 2022-11-06)
PROC: 0JBQ0ZZ Excision of Right Foot Subcutaneous Tissue and Fascia, Open Approach (ICD-10-PCS; principal; 2022-11-11)
DX: A40.9 Streptococcal sepsis, unspecified (principal); I96 Gangrene, not elsewhere classified; L03.115 Cellulitis of right lower limb; Z68.41 Body mass index [BMI] 40.0-44.9, adult; Z20.822 Contact with and (suspected) exposure to COVID-19; E86.0 Dehydration; F11.90 Opioid use, unspecified, uncomplicated; B19.20 Unspecified viral hepatitis C without hepatic coma; E66.01 Morbid (severe) obesity due to excess calories; R65.20 Severe sepsis without septic shock; R73.03 Prediabetes; Z87.891 Personal history of nicotine dependence; Z90.49 Acquired absence of other specified parts of digestive tract; Z90.89 Acquired absence of other organs; Z98.890 Other specified postprocedural states; Z88.0 Allergy status to penicillin; Z88.1 Allergy status to other antibiotic agents; Z88.6 Allergy status to analgesic agent; Z79.2 Long term (current) use of antibiotics; Z79.899 Other long term (current) drug therapy
CPT/HCPCS: 00400; 36415; 36569; 71045; 73600; 76882; 80048; 80053; 81001; 83036; 83605; 83735; 84484; 84550; 85025; 85379; 85610; 85730; 86140; 87040; 87070; 87075; 87088; 87205; 87502; 88304; 88305; 93005; 93010; 93306; 93971; 96365; 96367; 99285-25; A9270; C1751; C9803; J0131; J0696; J0878; J1650; J1956; J2001; J2250; J2405; J2704; J3010; J3370; J3490; J7030; J7060; J7121; U0003

== ENCOUNTER 2022-12-18 10:00 | Inpatient (IN) | payer OTHER ==
[~2022-12-18] VITALS: Ht 182.9 cm; Wt 137.3 kg
[~2022-12-18 10:00] MED LIST changes: +CEFPODOXIME PR200 MG PO; +STIMULANT LAXA1 EACH PO
--- NOTE | 2022-12-18 11:18 | NUR ---
1005: PT ARRIVES TO UNIT AMBULATORY FOR SCHED DRESSING CHANGE APPOINTMENT. PLACED IN ROOM 1. VSS, RESP EVEN AND UNLABORED. PT DROWSY FROM WORKING NIGHTS LAST PM. CANNISTER NOTED TO BE FULL WITH BROWN, RED FOUL SMELLING DRAINAGE. SUCTION IN PLACE AT 120MMG. SURROUNDING DRESSINGS SATURATED AND WEEPING WITH BROWN MILKY DRAINAGE. REMOVED WITH EASE. TWO PIECES OF BLACK FOAM REMOVED WITH SALINE AND MINIMAL TENSION. FLUID FILLED POCKETS ON LATERAL PORTION OF CALF OPENED AND CONCAVE. WOUND ON TOP OF FOOT BEEFY RED WITH STABLE SLOUGH COVERING THE RIGHT HALF OF THE WOUND. TISSUE EASILY WIPED AWAY WITH GAUZE ON LATERAL AND MEDIAL PORTION OF FOOT. ELEVATED FLUID POCKETS ON MEDIAL PORTION OF ANKLE LARGER THAN LAST VISIT AND ENTIRE LEG RED, HOT AND BLANCHABLE. PT NOTES ONE FLUID FILLED POCKET ON MEDIAL PORTION OF THIGH THAT BURST OVER THE WEEKEND AND IS NOW DRY WITH NO ELEVATION. PICTURES TAKEN AND SENT TO MD LORETTA FOR REVIEW. SAMP, DRY MAN, VISUALIZES WOUND. AWAITING MD INSTRUCTION. PT COMFORTABLE WITHOUT NEEDS AT THIS TIME, CALL LIGHT WITHIN REACH 1050: TC RECEIVED FROM MD LORETTA. MD TO CONSULT CURRENT HOSPITALIST AND CALL BACK WITH INSTRUCTION 1055: TC RECEIVED FROM MD LORETTA. MD VOLODYMYR TO VISUALIZE WOUND ON THE UNIT AND PROVIDE FURTHER ORDERS. PT UPDATED, DENIES QUESTIONS AND NEEDS 1100: MD VOLODYMYR ARRIVES AT THE BEDSIDE TO ASSESS PT. LAB ORDERS RECEIVED. 1115: INSULATION POWER UNIT TENDER ARRIVES AT THE BEDSIDE TO DRAW
--- NOTE | 2022-12-18 13:09 | NUR ---
PATIENT ARRIVED TO ROOM. REPORT FROM ALEJANDRA SAUCEDO, DAY SURGERY. PATIENT HAS RIGHT LEG ELEVATED ON 4 PILLOWS.
[2022-12-18 13:16] VITALS: BP 123/58
--- NOTE | 2022-12-18 13:19 | NUR ---
both nares swabbed sent to lab
--- NOTE | 2022-12-18 13:28 | NUR ---
PATIENT ADMISSION IS COMPLETE. IV CIPRO INFUSING FOR ONE HOUR. PATIENT DENIES NEEDS AT THIS TIME.
--- NOTE | 2022-12-18 13:46 | NUR ---
LE 1224-PHONE CALL FROM DR. BURGOS. VO TO ADMIT SASHA TO THE FLOOR FOR CELLULITIS AND WOUND NECROSIS. STATES HE WILL PUT ORDERS IN. LE 1305-PATIENT TRANSFERED TO MED SURG. PATIENT TRANSFERS SELF TO BED. BED RAILS UP. MED SURG NURSES ELVEVATE LEFT LEG WITH 4 PILLOWS. REPORT GIVEN TO ANALYTICAL RESEARCH PROGRAM MANAGER.
[2022-12-18] MEDS ORDERED: LISINOPRIL-HCT1 EAC2 PO (14:26)
--- NOTE | 2022-12-18 14:28 | NUR ---
MED REC COMPLETE
--- NOTE | 2022-12-18 19:42 | NUR ---
REPORT RECEIVED FROM DAY SHIFT RN. PT LYING IN BED ALERT AND ORIENTED. DENIES NEEDS. WHITE BOARD UPDATED. CALL LIGHT IN REACH.
--- NOTE | 2022-12-18 21:37 | NUR ---
IV PUMP ALARMING, DISTAL OCCLUSION. PUMP RESTARTED, IVF NOW INFUSING WNL. pt RESTING IN BED WITH EYES CLOSED. BREATHING EQUAL AND UNLABORED. URINAL EMPTIED, CALL LIGHT IN REACH.
[2022-12-18 21:43] VITALS: BP 104/48
--- NOTE | 2022-12-18 22:26 | NUR ---
PT RESTING WITH EYES CLOSED. AWAKENS EASILY. EVENING ASSESSMENT COMPLETE. SCHEDULED MEDS ADMIN PER EMAR. PT REPORTS RLE PAIN 02/03. SCHEDULED TYLENOL ADMIN PER EMAR. RLE REDNESS AND MULTIPLE OPEN TO AIR WOUNDS NOTED. LLE EDEMA NOTED. ASSISTED PT TO ELEVATE RLE ABOVE HEART WITH FOUR PILLOWS. SANDWICH BOX PROVIDED. PT DENIES FURTHER NEEDS. CALL LIGHT IN REACH.
--- NOTE | 2022-12-18 23:48 | NUR ---
IV PUMP ALARMING. ISSUE RESOLVED. PT RESTING WITH EYES CLOSED. RLE ELEVATED ON PILLOWS X 4.
[2022-12-19 01:48] VITALS: BP 98/48
--- NOTE | 2022-12-19 01:56 | NUR ---
PT RESTING WITH EYES CLOSED. AWAKENS EASILY TO VOICE. VS AND I&O OBTAINED. PT NPO SINCE MIDNIGHT. IVF INFUSING WNL. RLE ELEVATED ABOVE HEART. NO NEEDS AT THIS TIME. CALL LIGHT IN REACH.
--- NOTE | 2022-12-19 04:07 | NUR ---
PT RESTING IN BED WITH EYES CLOSED. RESPIRATIONS EVEN. URINAL EMPTIED. RLE ELEVATED ABOVE HEART. CALL LIGHT IN REACH.
[2022-12-19 06:11] VITALS: BP 105/55
--- NOTE | 2022-12-19 06:20 | NUR ---
VS AND I&O OBTAINED. SCHEDULED PAIN MEDS ADMIN WITH SIP OF WATER. PT REPORTS RLE PAIN 02/03. RLE ELEVATED WITH FOUR PILLOWS ABOVE LEVEL OF HEART. CHUCKS CHANGED UNDER LEG DUE TO PURULENT AND BLOODY DRAINAGE. REDNESS AND SWELLING IMPROVED FROM LAST NOC. PT DENIES FURTHER NEEDS. CALL LIGHT IN REACH.
--- NOTE | 2022-12-19 07:10 | NUR ---
report from minnie rn, pt resting in bed resp even, call light in reach - plan for surgery today.
[2022-12-19 09:19] VITALS: BP 90/48
--- NOTE | 2022-12-19 09:31 | NUR ---
pt chlorhexidine wipe down complete. scds set up. pt has no needs at this time. call light within reach
--- NOTE | 2022-12-19 10:53 | NUR ---
RN IN ROOM WITH DR FOR ROUNDING. NO CHANGES NOTED, PT DENIES NEEDS, CALL LIGHT IN REACH. 250 CLEAR YELLOW URINE EMPTIED. PRE PROCEDURE I/O DOCUMENTED 600ML URINE TOTAL.
--- NOTE | 2022-12-19 11:00 | NUR ---
Spoke with Dany and he states he cont. to live with his in [place]. 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 He gas station job, he is able to elevate his leg, he is unable to do so when he drives a taxi. He states his leg wound has slowly worsed. He denies the ability to take time off as he must work to pay their bills. He will have I&D surgery around noon today. He has a wound vac he has been using. He denies needing any DME or any resources. Plans on dc to home when cleared medically. He was offered LTAC or SNF per progress notes, pt declines.
--- NOTE | 2022-12-19 11:00 | NUR ---
Spoke with pt. He wants to go home tomorrow. He needs a walker and a transfer shower bench. Pt has syncope and best plan is for him to go home with DME. He does not have Medicare B and to cover DME. [facility] with the [facility], and they stated to get the Auth number for this hospitalization and add the DME to his hospital stay. The needs to chart this is a requirement and contigent on the pts discharge. Attempted to call the [facility] and was unable to contact.
--- NOTE | 2022-12-19 12:09 | NUR ---
PT TO DAY SURGERY WITH ALEJANDRA ABEL. REPORT GIVEN BY ANALILIA Valerio RN. PT TRANSFERRED VIA BED, LR AND STRAIGHT TUBING SENT. PT'S PHONE AND BELONGINGS LEFT IN ROOM. HOUSEKEEPING NOTIFIED OF PT DEPARTURE. BEDSIDE PULSE OX SET UP.
--- NOTE | 2022-12-19 12:37 | NUR ---
COLLEGE OR UNIVERSITY REGISTRAR YVETTE INFORMED ME PT TAKEN TO OR FOR SURGERY. WILL FOLLOW
--- NOTE | 2022-12-19 14:51 | NUR ---
12/19/22 1451 Sheets,Lacy 1420 PT ARRIVED ASLEEP WITH ORAL AIRWAY IN PLACE.
--- NOTE | 2022-12-19 16:03 | NUR ---
PT BROUGHT TO ROOM @ 1549 VIA HOSPITAL BED BY ALEJANDRA CHOW AND ALEJANDRA BOO FROM PACU AFTER RLE I&D BY DR. BURGOS. PT RESTING WITH EYES CLOSED ON LEFT SIDE, RLE PROPPED UP ON 4 PILLOWS, SCD APPLIED TO LLE AND CONNECTED. WOUND VAC DRAINING SEROSANGUINOUS FLUID. REPORT RECEIVED FROM ALEJANDRA CHOW. 5 GAUZE AND TAPE SITES AND WOUND VAC SITE INTACT. IV SITE AND DRESSING INTACT, LR @ 85ML/HR. VS OBTAINED. CONTINUOUS PULSE OX AT BEDSIDE APPLIED.
[2022-12-19 17:00] VITALS: BP 109/61
--- NOTE | 2022-12-19 17:00 | NUR ---
in room for vitals - wnl - pt resting resp 16 on left side, wound vac wnl, leg elevated and call light in reach.
--- NOTE | 2022-12-19 17:25 | NUR ---
CALL TO DR BURGOS TO CLARIFY DIET STATUS - OK TO MAKE REG DIET - KITCHEN NOTIFIED.
[2022-12-19 19:00] VITALS: BP 119/59
--- NOTE | 2022-12-19 19:02 | NUR ---
PT SLEEPING INITIALLY, EASILY AWAKENED TO VOICE, STATES PAIN 7 OUT OF 10 IN RLE, ELEVATED ON PILLOWS, WOUND VAC DRAINING SEROSANGUINOUS FLUID. VS DOCUMENTED. IBUPROFEN AND MSO4 ADMINISTERED FOR PAIN, PT EATING DINNER. DENIES FURTHER NEEDS AT THIS TIME. CALL LIGHT WITHIN REACH. SEEMS TO HESITATE TO ASK FOR ASSISTANCE WITH ANYTHING, ENCOURAGED TO ASK FOR HELP WHEN NEEDED. WARM BLANKET GIVEN.
--- NOTE | 2022-12-19 19:47 | NUR ---
REPORT RECEIVED FROM DAY SHIFT RN. PT LYING IN BED ALERT AND ORIENTED. SANDWICH BOX PROVIDED. NO FURTHER NEEDS. CALL LIGHT IN REACH. WHITE BOARD UPDATED.
[2022-12-19 21:24] VITALS: BP 100/48
--- NOTE | 2022-12-19 22:04 | NUR ---
PT UP TO BR WITH FWW AND SBA TO VOID AND HAVE BM. TTWB RIGHT LEG. BACK TO BED, ANN WELL. GAIT STEADY. RLE ELEVATED WITH FOUR PILLOWS ABOVE HEART. WOUND VAC INTACT AT 120 mmHg. SEROSANG DRAINAGE NOTED. CMS INTACT. EVENING ASSESSMENT COMPLETE. PT REPORTS RLE PAIN 12/04. SCHEDULED MEDS ADMIN PER EMAR. CPOX AND SCD TO LLE IN PLACE. PT DENIES QUESTIONS OR CONCERNS. CALL LIGHT IN REACH.
[2022-12-20] VITALS (7 sets, daily range): BP systolic 96–117; BP diastolic 50–69
--- NOTE | 2022-12-20 00:09 | NUR ---
PT RESTING IN BED WITH EYES CLOSED. RESPIRATIONS EVEN. CALL LIGHT IN REACH.
--- NOTE | 2022-12-20 02:09 | NUR ---
PT RESTING IN BED WITH EYES CLOSED. AWAKENS EASILY TO VOICE. VS AND I&O OBTAINED. PT REPORTS HE IS RESTING COMFORTABLY. RLE ELEVATED WITH FIVE PILLOWS. ASSESSMENT UNCHANGED. PT DENIES NEEDS. CALL LIGHT IN REACH.
--- NOTE | 2022-12-20 04:49 | NUR ---
PT RESTING IN BED WITH EYES CLOSED. RESPIRATIONS EVEN. CALL LIGHT IN REACH.
--- NOTE | 2022-12-20 06:47 | NUR ---
VS AND I&O OBTAINED. SCHEDULED TYLENOL ADMIN FOR 4/10 RLE PAIN. RLE ELEVATED ABOVE HEART. NO FURTHER NEEDS. CALL LIGHT IN REACH.
--- NOTE | 2022-12-20 07:00 | NUR ---
bedside report from minnie rn, pt in bed with r foot elevated on multiple pillows above heart with wound vac wnl. iv fusing, pt resp even and unlabored, call light in reach - emptied yellow urine from urinal 350 ml. pt de sats in sleep and minnie placed on 2L nc to keep sats on cpox above 90%, pt denies needs,
--- NOTE | 2022-12-20 09:15 | NUR ---
in with pt for meds, hold on hctz and lisinopril - note to dr mojica about parameters and low bp - meds held. charge loader aware. pt with nursing informatics clinical analyst educating on side effects and porpose of medications this am. r leg is unchanged wound vac wnl to 120 mmhg suction, call light in reach.
--- NOTE | 2022-12-20 09:45 | NUR ---
Sophy and I went and visited the pt. He states that there are no new needs other than possibly wanting crutches. Pt has a wound vac on and will continue to get wound care from the clinic. Pt states he wants to get home to continue working. Pt will need to discuss this further with Dr. Brown.
--- NOTE | 2022-12-20 12:04 | NUR ---
pt up in for meal with legs elevated and call light in reach - student nurse in with pt.
--- NOTE | 2022-12-20 12:30 | NUR ---
PATIENT CALLED FOR ASSISTANCE FROM BR TO RECLINER. RT LEG ELEVATED WITH 4 PILLOWS SUPPORTING. CALL LIGHT IN EASY REACH. RN IN ROOM AT THIS TIME WELL
--- NOTE | 2022-12-20 12:32 | NUR ---
PT UP IN CH - TEMP ORAL 97, PT C/O INCREASE PAIN RLE WITH ACTIVITY AND DEPENDENT LEG WHILE TOILETING - SEE EMAR - MS AND MOTRIN GIVEN. CALL LIGHT IN REACH.
--- NOTE | 2022-12-20 12:38 | NUR ---
IN ROOM WITH DR BURGOS FOR ROUNDS, PT DENIES NEEDS - FAN TO PT FOR COMFORT.
--- NOTE | 2022-12-20 13:15 | NUR ---
removed small gauze dressings on rle per dr feliciano instuctions verbal and re dressed, wet to dry gauze was removed and replaced with new after cleaning with chrlorhexidine wipes and sticks. covered with pink allyvn. pt tollerated with pain - ms and motrin given pre procedure. pt relived after intervention and at rest in with call light.
--- NOTE | 2022-12-20 13:56 | NUR ---
PT ALERT, ORIENTED AND RESTING IN BED WITH TV ON. HAD GOOD VISIT, PT SHARED WITH ME THAT HE IS FEELING BETTER FOLLOWING SURGERY. SURGERY ENDED BEING MORE THAN HE EXPECTED, BUT IS TRYING TO STAY POSITIVE. HAD PRAYER, WILL FOLLOW
--- NOTE | 2022-12-20 14:30 | NUR ---
ELEVATED RLE WITH GREEN SLING FROM CEILING LIFT AND PILLOWS.
--- NOTE | 2022-12-20 17:30 | NUR ---
repositioned pt leg up in sling above heart, pt tollerating well, denies needs. void wnl - edema in r leg improving.
--- NOTE | 2022-12-20 19:42 | NUR ---
received bedside report from offgoing shift, hourly rounding initiated.
--- NOTE | 2022-12-20 21:37 | NUR ---
IN pt room for rounding, med pass, assessment. Pt resting on back, leg elevated by macey sling with pillows underneath. Pt is medication compliant, has no complaint at this time, call light in reach.
--- NOTE | 2022-12-20 23:21 | NUR ---
IN pt room for rounding. Pt resting on back, eyes open, eating gummy bears. Pt leg is elevated on 4 pillows above level of heart, pt has no complaint at this time, call light in reach.
--- NOTE | 2022-12-20 23:42 | NUR ---
In pt room for CPOX alarm. Pt sleeping and saturation dropping below 88% to 81%. Pt placed on O2 for sleep. Call light in place, no further complaint.
--- NOTE | 2022-12-21 00:43 | NUR ---
IN pt room for rounding - pt gets "distal occlusion" error on IV frequently. Pt has no complaint of pain or discomfort, breathing is even and unlabored, leg elevated, call light in reach.
--- NOTE | 2022-12-21 02:17 | NUR ---
IN pt room for rounding. Pt resting on back, oxygen in place, leg elevated, eyes closed with breathing even and unlabored. Pt has call light in reach, no indication of or complaint of pain at this time.
--- NOTE | 2022-12-21 03:56 | NUR ---
IN pt room for rounding. Pt resting on back, complaining of pain, given pain medication. Pt has no further complaints, leg changed position from pillows to macey lift, call light in reach
--- NOTE | 2022-12-21 05:06 | NUR ---
IN pt room for rounding. Pt laying on back, eyes closed, breathing even and unlabored with no indication of pain or discomfort, Pt call light in reach
[2022-12-21 05:33] VITALS: BP 122/65
--- NOTE | 2022-12-21 06:11 | NUR ---
In pt room for rounding. Pt resting on back, leg elevated by macey, eyes closed, breathing even and unlabored. Pt has call light in reach, no complaint of pain or discomfort.
--- NOTE | 2022-12-21 07:30 | NUR ---
RECIEVED SHIFT REPORT. PT AWAKE IN BED, REQUESTED TO USE RESTROOM. PHARMACY BENEFITS COORDINATOR IN ROOM TO ASSIST. CALL LIGHT IN REACH.
--- NOTE | 2022-12-21 07:33 | NUR ---
PT ASSISTED UP TO BR 1 PA W FWW. PT NOW UP TO CHAIR. PT LEG ELEVATED W TERRA AND SHYAM. PT BED MADE. PT TRAY TABLE AND CALL LIGHT WITHIN REACH. NO NEEDS AT THIS TIME. CALL LIGHT WITHIN REACH
--- NOTE | 2022-12-21 09:09 | NUR ---
MORNING ASSESSMENT COMPLETE. PT TRANSFERRED BACK INTO BED, PER PT REQUEST. RLE PAIN 02/03, PRN PAIN MEDICATION ADMINISTERED (PER EMAR). ABX ADMINISTERING AT THIS AT THIS TIME. RIGHT ELEVATED ABOVE HEART, VIA TERRA. CMS INTACT. DENIES NUMBNESS OR TINGLING. WOUND VAC IN PLACE. CALL LIGHT IN REACH.
[2022-12-21 09:46] VITALS: BP 109/62
--- NOTE | 2022-12-21 10:30 | NUR ---
IN ROOM, PT STATES PAIN 4/10, TOLERABLE. DENIES FURTHER NEEDS. CALL LIGHT IN REACH
--- NOTE | 2022-12-21 12:38 | NUR ---
PT COMPLAINS OF 5/10 PAIN. PRN PAIN MEDICATION ADMINISTERED (PER EMAR). CALL LIGHT IN REACH
--- NOTE | 2022-12-21 14:00 | NUR ---
Spoke with Dany, he denies needs. Offered word searches or coloring pages. Pt declines.
[2022-12-21 14:28] VITALS: BP 118/62
--- NOTE | 2022-12-21 14:55 | NUR ---
AFTERNOON ASSESSMENT COMPLETE. NO NEW CHANGES. PT RESTING IN BED, AWAKE. PAIN 5/10, SCHEDULED PAIN MEDICATION ADMINISTERED AT THIS TIME. CALL LIGHT IN REACH.
--- NOTE | 2022-12-21 15:44 | NUR ---
PT RESTING IN BED, EYES CLOSED, BREATHING EVEN AND UNLABORED. CALL LIGHT IN REACH
[2022-12-21 17:19] VITALS: BP 115/59
--- NOTE | 2022-12-21 19:45 | NUR ---
TO PT ROOM FOR MEDICATION ADMINISTRATION. PT IS A/O, RESPIRATIONS EVEN AND REGULAR. RATES PAIN 6/10 PRN MORPHINE GIVEN. CALL LIGHT WITHIN REACH.
--- NOTE | 2022-12-21 20:50 | NUR ---
PT ASSESSMENT AND MEDICATION ADMINISTRATION COMPLETED. PT IS A/O, RESPIRATIONS EVEN AND REGULAR. RIGHT LEG ELEVATED ABOVE HEART. IV FLUIDS RUNNING CALL LIGHT WITHIN REACH.
[2022-12-21 21:17] VITALS: BP 107/62
--- NOTE | 2022-12-21 21:23 | NUR ---
Adjusted Pt's pillows and brought fresh ice water as needed. Call light left in reach; no other requests from Pt.
--- NOTE | 2022-12-21 22:54 | NUR ---
PT. CALLED REQUESTING ASSISTANCE TO BATHROOM. THIS WAS PROVIDED. FRESH ICE WATER PROVIDED. CALL LIGHT LEFT WITHIN REACH. NO OTHER IMMEDIATE NEEDS AT THIS TIME.
--- NOTE | 2022-12-21 23:00 | NUR ---
PT RATES PAIN 8/10. PRN MORPHINE GIVEN. PT IS A/O, RESPIRATIONS EVEN AND REGULAR. DENIES ANY OTHER NEEDS ATT.
--- NOTE | 2022-12-22 01:32 | NUR ---
RIGHT LEG ELEVATED ABOVE HEART.
--- NOTE | 2022-12-22 02:12 | NUR ---
In pt room for rounding. Pt resting on back eyes closed, breathing even and unlabored, leg elevated above level of heart with 4 pillows. Pt has no complaint of pain or discomfort when asked. Pt call light in reach
[2022-12-22 05:32] VITALS: BP 112/64
--- NOTE | 2022-12-22 05:37 | NUR ---
MEDICATION ADMINISTRATION COMPLETED. PT IS A/O, RESPIRATIONS EVEN AND REGULAR. RIGHT LEG ELEVATED. WOUND VAC RUNNING AND INTACT. IV FLUIDS RUNNING. IV SITE WNL. PT DENIES NEEDS/COMPLAINTS ATT. CALL LIGHT WITHIN REACH.
--- NOTE | 2022-12-22 09:03 | NUR ---
Admin morphine 4mg IV at this time for reports of 6/10 right leg pain. Right leg elevated at this time above heart level.
[2022-12-22 09:38] VITALS: BP 113/63
[2022-12-22 10:20] VITALS: BP 128/78
--- NOTE | 2022-12-22 11:20 | NUR ---
Wound vac canister is full. New wound vac canister placed at this time. Wound vac restarted, cont suction remains @ 120mmhg. Patient tolerated well.
--- NOTE | 2022-12-22 11:31 | NUR ---
THIS RN TO ROOM TO ASSIST WITH WOUND VAC, PTS PRIMARY RN REPORTS WOUND VAC IS LEAKING. DRESSING REINFORCED WITH ADDITIONAL OPSITE. NO PROGRESS. DAY SURGERY WOUND NURSE CALLED, UNAVALIABEL AT THIS TIME. POST PARTUM NURSE CALLED AND STATES SHE WILL FIND A WOUND RN TO LOOK AT DRESSING. PTS PRIMARY RN UPDATED.
--- NOTE | 2022-12-22 11:47 | NUR ---
ADMIN MORPHINE 4MG IV FOR REPORTS OF RIGHT LEG/FOOT PAIN. WOUND VAC DRESSING REINFORCED AT THIS TIME MACHINE INDICATES AIR LEAK.
--- NOTE | 2022-12-22 12:03 | NUR ---
CLAUDINE, EKG MANAGER, WOUND CARE NURSE TO BEDSIDE TO EVALUATE AND REINFORCE WOUND VAC. PTS PRIMARY RN AT BEDSIDE.
--- NOTE | 2022-12-22 12:12 | NUR ---
THIS RN TO ROOM DUE TO MEDSUR REQUEST FOR WOUND VAC REPORTING LEAKING. WOUND VAC TRACK PAD REPLACED AND DRAPE REINFORCED. SMALL AMOUNT OF COBAND AROUND WOUND VAC AND PT TURNED TO LEFT SIDE. WOUND VAC CONTINUES TO REPORT LEAKING. SUCTION NOTED THROUGHOUT BLACK FOAM IN WOUND. PRIMARY RN AND MEDSURG CHARGE AWARE. PT REPORTS MD WOULD DO WOUND VAC CHANGE IN OR TOMORROW.
--- NOTE | 2022-12-22 12:21 | NUR ---
CALL LIGHT WITHIN REACH AND PT DENIES ANY NEEDS AT THIS TIME. LIGHT TUNRNED DOWN PER REQUEST.
--- NOTE | 2022-12-22 14:04 | NUR ---
No changes to CM plan.
--- NOTE | 2022-12-22 14:16 | PATH ---
[facility] [address], [place] [address] Signed SPECIMEN(S): A RIGHT FOOT SPECIMEN SOURCE: A. RIGHT FOOT CLINICAL HISTORY: Cellulitis wound necrosis. Debridement right lower extremity. FINAL PATHOLOGIC DIAGNOSIS: Right foot: - Ulcerated skin and necrotic soft tissue with acute inflammation and abscess. - Extensive soft tissue necrosis. JVR:cml:C2NR MICROSCOPIC EXAMINATION: Histologic sections of all submitted blocks are examined by light microscopy. These findings, together with the gross examination, support the pathologic diagnosis. GROSS DESCRIPTION: The specimen, labeled and designated "Neno, Chris, " and designated on the requisition "products of debridement right foot," is received in formalin and consists of a 6.4 x 4.5 x 4.2 cm aggregate of yybfy-ozhiry-vfy firm, thickened skin with nicholson-brown friable soft tissue. Ticket Machine Operator sections are submitted in (A1). FB (under the direct supervision of a pathologist) The Gross Description was prepared using a voice recognition system. The report was reviewed for accuracy; however, sound-alike word errors, addition and/or deletions may occur. If there is any question about this report, please contact Client Services. PERFORMING LABORATORY: The technical component was performed by [facility], [address] [place] [id number] (CLIA# [id number]). Professional interpretation was performed by [email or web address] - [facility], [address] [place] [id number] (CLIA#: [id number]). Diagnostician: Lee Collado MD Pathologist Electronically Signed 12/22/2022 PATIENT NAME: NORMA BECERRA PATHOLOGY DATE OF : 83 REPORT #: [id number] PHYSICIAN: PEE VANEGAS PCP: CHEYENNE WHARTON PA-C REPORT IS CONFIDENTIAL AND NOT TO BE RELEASED WITHOUT AUTHORIZATION [facility] [address] [place] [id number] Signed Copies: ~ PATIENT NAME: NORMA BECERRA PATHOLOGY DATE OF : 83 REPORT #: [id number] PHYSICIAN: PEE PATHOLOGY PCP: CHEYENNE WHARTON PA-C REPORT IS CONFIDENTIAL AND NOT TO BE RELEASED WITHOUT AUTHORIZATION
[2022-12-22 14:19] VITALS: BP 116/63
--- NOTE | 2022-12-22 17:04 | NUR ---
Patient resting in bed, eyes closed, respirations even and non labored. No notable distress. IV site patient, fluids infusing per provider order. Call light within reach.
[2022-12-22 18:37] VITALS: BP 123/71
--- NOTE | 2022-12-22 18:50 | NUR ---
ADMIN MORPHINE 4MG IV FOR REPORTS OF 6/10 RIGHT LEG/FOOT PAIN. RIGHT LEG REMAINS ELEVATED ABOVE HEART LEVEL.
--- NOTE | 2022-12-22 19:32 | NUR ---
RECEIVED REPORT FROM DAY NURSE. PT IS LAYING FLAT IN BED WITH RIGHT LEG ELEVATED. WOUND VAC IN PLACE. IV FLUIDS RUNNING. DENIES NEEDS COMPLAINTS ATT. CALL LIGHT WITHIN REACH.
--- NOTE | 2022-12-22 20:45 | NUR ---
PER [employer]SHIFT [employer]NA[employer] MARKETING BILL, pt's WOUND VAC WAS LEAKING INTERMITTENTLY ON DAYSHIFT. RENEWALS REPRESENTATIVE ANNA CAME ON DAYSHIFT TO ASSESS AND PROBLEM SOLVE. DR BURGOS MADE AWARE, PER MD POC TO GO INTO OR TOMORROW AND CHANGE OUT WOUND VAC AND PER MD, REINFORCE PRN. READ BACK TO CONFIRM. MD TO ALSO PLACE ORDERS FOR NPO. PRIMARY RN BEULAH UPDATED.
--- NOTE | 2022-12-22 21:00 | NUR ---
PT ASSESSMENT AND MEDICATION ADMINISTRATION COMPLETED. PT IS A/O, RESPIRATIONS EVEN AND REGULAR. WOUND VAC IN PLACE, APPEARS TO BE DRAINING, CURRENTLY NO ALARMS. IV FLUIDS RUNNING. CALL LIGHT WITHIN REACH.
[2022-12-22 21:13] VITALS: BP 107/68
[2022-12-23] VITALS (7 sets, daily range): BP systolic 110–137; BP diastolic 51–85
--- NOTE | 2022-12-23 02:05 | NUR ---
PT APPEARS TO BE SLEEPING COMFORTABLY. SKIN ASSESSMENT COMPLETED. CALL LIGHT WITHIN REACH.
--- NOTE | 2022-12-23 02:57 | NUR ---
ROUNDED ON PT. PT REQUESTED PAIN MEDICATION FOR PAIN RATING 7/10. PT IS A/O, RESPIRATIONS EVEN AND REGULAR. WOUND VAC INTACT WITHOUT ALARMS ATT. READJUSTED RIGHT LEG FOR BETTER ELEVATION. PT IS AWARE OF NPO STATUS. IV FLUIDS RUNNING. CALL LIGHT WITHIN REACH.
--- NOTE | 2022-12-23 04:00 | NUR ---
ROUNDED ON PT RATES PAIN 5/10. DENIES ANY NEEDS/COMPLAINTS ATT. CALL LIGHT WITHIN REACH.
--- NOTE | 2022-12-23 06:37 | NUR ---
ASSISTED PT TO RESTROOM. PT AMBULATED WITH WALKER. IV FLUIDS RUNNING. WOUND VAC INTACT AND WITHOUT ALARMS ATT. PT REMAINS NPO. REQUESTED PAIN MEDICATION FOR PAIN RATING 8/10. CALL LIGHT WITHIN REACH.
--- NOTE | 2022-12-23 07:45 | NUR ---
Patient resting in bed watching tv, no distress. Patient reports he slept well last night. Right leg is currently elevated. Wound vac intact, cont suction @ 120mmhg, intermittent air leak noted. IV fluids infusing per provider order. No current needs, personal supplies and call light within reach.
--- NOTE | 2022-12-23 12:51 | NUR ---
THIS RN TO ROOM TO ASSIST WITH IV START. IV STARTED PER PROTOCOL TO RIGHT HAND. PT TOLERATED WELL. IV FLUIDS RESUMED. LEAKING IV TO RIGHT FORARM DC'D PER PROTOCOL. GAUZE AND COBAN APPLIED. PT REQUESTS PAIN MEDICATIONS. PTS PRIMARY RN, ANDRIA, UPDATED AND STATES SHE WILL GIVE PAIN MEDICATION. NO ADDITIONAL REQUESTS OR COMPLAINTS. CALL LIGHT WITHIN REACH. BED RAILS UP.
--- NOTE | 2022-12-23 12:54 | NUR ---
Admin morphine 4mg iV at this time for reports of 6/10 right foot pain. Right leg remains elevated above heart level. IV site patent. NO further needs.
--- NOTE | 2022-12-23 13:53 | NUR ---
PATIENT LYING IN BED RIGHT LEG ELEVATED. VITALS AND I/O'S COMPLETED. PT HAS NO OTHER REQUESTS AT THIS TIME. CALL LIGHT WITHIN REACH.
--- NOTE | 2022-12-23 15:26 | NUR ---
12/23/22 1526 Dillon,Lacy 1501 PT ARRIVED TO PACU ON RA O2 SAT 88%, JAW THRUST USED AND 6L VIA MASK PLACED. O2 INCREASED TO MID 90S. PT SLIGHTLY REACTIVE TO PAINFUL STIMULI. 1505 PT ASLEEP AND JAW THRUST NO LONGER NEEDED. 1516 PT WAKES TO TACTILE STIMULI AND PULLED O2 MASK OFF. PT NODS "NO" TO PAIN, THEN RATES PAIN 9/10. PT REPORTS PAIN 7/10 BEFORE SURGERY THEN EASILY FALL RIGHT BACK TO SLEEP. 1525 PT O2 SAT 91% AND SMALL AMOUNT OF SNORING NOTED.
--- NOTE | 2022-12-23 16:14 | NUR ---
Patient back to the medical floor. Pt alert and oriented x4, awake conversing with staff. Vital signs stable, afebrile. Right leg elvated above heart level, cms intact. Wound vac dressing CDI, suction on @ 120mmgh, no air leak at this time. No needs, call light within reach.
--- NOTE | 2022-12-23 17:53 | NUR ---
ADMIN MORPHINE 4MG IV FOR REPORTS OF 6/10 RIGHT LEG PAIN. RIGHT LEG ELVATED AT THIS TIME, CMS INTACT. WOUND VAC WORKING APPROPRIATELY, NO AIR LEAK, SUCTION TO 120MMHG. VITAL SIGNS ARE STABLE. CALL LIGHT WITHIN REACH.
--- NOTE | 2022-12-23 19:27 | NUR ---
RECEIVED REPORT FROM DAY NURSE. PT APPEARS TO BE SLEEPING COMFORTABLY. RESPIRATIONS EVEN AND REGULAR. RIGHT LEG ELEVATED ABOVE HEART. WOUND VAC IN PLACE. IV FLUIDS RUNNING.
--- NOTE | 2022-12-23 20:54 | NUR ---
PT ASSESSMENT AND MEDICATION ADMINISTRATION COMPLETE. PT DENIES NEEDS/COMPLAINTS ATT. CALL LIGHT WITHIN REACH.
--- NOTE | 2022-12-23 22:30 | NUR ---
PT REQUESTING PAIN MEDICATION FOR PAIN RATING 6/10. PT REMAINS WITH RIGHT LEG ELEVATED. PRN MEDICATION GIVEN.
[2022-12-24 01:29] VITALS: BP 111/70
--- NOTE | 2022-12-24 01:33 | NUR ---
VS AND I/O'S COMPLETED. PT IS A/O, RESPIRATIONS EVEN AND REGULAR. WOUND VAC INTACT. NO ALARMS ATT. PT DENIES NEEDS/COMPLAINTS ATT. CALL LIGHT WITHIN REACH.
--- NOTE | 2022-12-24 03:44 | NUR ---
NEW BAG OF IV FLUIDS HUNG. PT APPEARS TO BE SLEEPING COMFORTABLY. RESPIRATIONS EVEN AND REGULAR.
[2022-12-24 05:36] VITALS: BP 116/71
--- NOTE | 2022-12-24 05:49 | NUR ---
MEDICATION ADMINISTRATION COMPLETED. VS, I/O'S COMPLETED. PT IS A/O, RESPIRATIONS EVEN AND REGULAR. RIGHT LEG ELEVATED ABOVE HEART.
--- NOTE | 2022-12-24 07:28 | NUR ---
ASSUMING CARE OF PT. RECEIVED REPORT FROM BEULAH ROBERTS. PT RESTING IN BED WITH EYES CLOSED, RESPIRATIONS EVEN AND UNLABORED. CALL LIGHT WITHIN REACH.
--- NOTE | 2022-12-24 08:51 | NUR ---
IN ROOM FOR MORNING ASSESSMENT AND MEDICATION PROVIDED. PT RESTING IN BED WATCHING TV.
[2022-12-24 09:04] VITALS: BP 117/72
--- NOTE | 2022-12-24 09:12 | NUR ---
VS OBTAINED AND INTAKE/OUTPUT. PAIN MEDICATION PROVIDED PER PT REQUEST. PT HAS RIGHT LEG ELEVATED WITH PILLOWS ABOVE HEART. LUNG SOUNDS CLEAR, HEART SOUNDS STRONG, BOWEL TONES ACTIVE. CAP REFILL <3SECS, CMS INTACT. PT HAS SURGICA; DRESSING ON RIGHT LEG. PT HAS LR @85ML/HR AND ABX INFUSING. DENIES FURTHER NEEDS AT THIS TIME. CALL LIGHT WITHIN REACH.
--- NOTE | 2022-12-24 10:08 | NUR ---
IN ROOM DUE TO IV PUMP BEEPING. INFUSION ADJUSTED IT SAID COMPLETE. PT RESTING IN BED, CALL LIGHT WITHIN REACH. PT DENIES NEEDS AT THIS TIME.
--- NOTE | 2022-12-24 12:13 | NUR ---
IN ROOM TO CHECK ON PT. PT DENIES NEEDS AT THIS TIME. PT RESTING IN BED WITH CALL LIGHT WITHIN REACH AND RESPIRATIONS EVEN AND UNLABORED. PT DENIES NEED FOR BEDBATH, WASHCLOTH OR OTHER MEASURES AT THIS TIME.
[2022-12-24 13:41] VITALS: BP 125/71
--- NOTE | 2022-12-24 13:45 | NUR ---
PT ASSISTED TO BATHROOM WITH 1PA WITH WALKER. PT GIVEN CLEAN GOWN AND BATHWIPES. PT INDEPENDENT WITH BEDBATH. LINEN CHANGED ON BED. PT BACK IN BED WITH RIGHT FOOT ELEVATED ABOVE HEART. PAIN MEDICATION PROVIDED PER PT REQUEST. PT DENIES FURTHER NEEDS AT THIS TIME.
--- NOTE | 2022-12-24 14:56 | NUR ---
PT GIVEN AFTERNOON MEDICATION. PT RESTING IN BED, CALL LIGHT WITHIN REACH, BEDRAIL UP FOR SAFETY. PT DENIES NEEDS AT THIS TIME.
--- NOTE | 2022-12-24 16:50 | NUR ---
PT RESTING IN BED WATCHING TV. DENIES NEEDS AT THIS TIME.
[2022-12-24 17:57] VITALS: BP 104/56
--- NOTE | 2022-12-24 17:59 | NUR ---
PATIENT IN BED, WATCHING TV. VITALS COMPLETED. PT DID NOT WANT MEAL YET. PT REQUESTING PAIN MEDICINE. NURSE NOTIFIED, CALL LIGHT WITHIN REACH.
--- NOTE | 2022-12-24 19:15 | NUR ---
RECEIVED REPORT FROM DAY NURSE. PT APPEARS TO BE RESTING COMFORTABLY WITH RIGHT LEG ELEVATED ABOVE HEART WATCHING TELEVISION.
--- NOTE | 2022-12-24 20:45 | NUR ---
PT ASSESSMENT AND MEDICATION ADMINISTRATION COMPLETED. PT IS A/O, RESPIRATIONS EVEN AND REGULAR. DENIES NEEDS/COMPLAINTS ATT. CALL LIGHT WITHIN REACH.
[2022-12-24 20:49] VITALS: BP 114/60
--- NOTE | 2022-12-25 03:18 | NUR ---
PT APPEARS TO BE SLEEPING COMFORTABLY. RESPIRATIONS EVEN AND REGULAR. RIGHT LEG REMAINS ELEVATED.
[2022-12-25 05:41] VITALS: BP 110/69
--- NOTE | 2022-12-25 05:45 | NUR ---
MEDICATION ADMINISTRATION COMPLETED. PT IS A/O, RESPIRATIONS EVEN AND REGULAR. PT DENIES NEEDS/COMPLAINTS ATT.
--- NOTE | 2022-12-25 07:28 | NUR ---
RECEIVED REPORT FROM FINANCIAL PLANNER NURSE. PATIENT CURRENLTY SLEEPING REGULAR RESPIRATIONS NOTED.
--- NOTE | 2022-12-25 09:45 | NUR ---
PATIENT LAYING IN BED, DOES NOT WANT HIS BREAKFAST YET. ELEVATED RIGHT LEG WITH ANOTHER PILLOW. WOUND VAC RUNNING. PATIENT ON RA AND SL IV. DENIES CARES AT THIS TIME. CALL LIGHT WITHIN REACH.
[2022-12-25 09:57] VITALS: BP 104/64
--- NOTE | 2022-12-25 11:23 | NUR ---
IN TO SEE PATIENT. PATIENT CONFIRMS THAT HE SHOULD BE DISCHARGING TODAY. PATIENT REQUEST CRUT[employer]ES FOR DISCHARGE. APPLICATION FOR [employer] FILLED OUT AND FAXED.
[2022-12-25 14:19] VITALS: BP 108/60
--- NOTE | 2022-12-25 15:04 | NUR ---
PATIENT GIVEN AFTERNOON MEDICATIONS. PATIENT DENIES WANTING TO GET UP TO CHAIR OR EAT LUNCH HE IS WANTING TO GET TO GO HOME.
--- NOTE | 2022-12-25 16:02 | NUR ---
PATIENT IS CURRENTLY ASLEEP. RIGHT LEG ELEVATED ON PILLOWS. REGULAR RESPIRATIONS NOTED.
[2022-12-25] MEDS ORDERED: IBUPROFEN600 MG PO (17:38)
[2022-12-25] MEDS ORDERED: ACETAMINOPHEN500 MG PO (17:39)
[2022-12-25] MEDS ORDERED: CIPRO500 MG PO (17:40)
[2022-12-25] MEDS ORDERED: STIMULANT LAXA1 EACH PO (17:40)
[2022-12-25] MEDS ORDERED: FLAGYL375 MG PO (17:41)
[2022-12-25 17:50] VITALS: BP 120/70
--- NOTE | 2022-12-25 18:30 | HP ---
[facility] [address] [place], [place] [address] Signed ADMISSION DATE: 12/18/2022 REASON FOR ADMISSION: Recurring worsening of right lower extremity cellulitis and probable undrained soft tissue abscesses. HISTORY OF PRESENT ILLNESS: This 37-year-old white man was admitted to the hospitalist service more than a month ago for rather significant and severe recurrent right lower extremity cellulitis. IV antibiotics, leg elevation and other measures were initiated, which improved his situation. Consultation was undertaken by me as the surgeon on-call, which demonstrated a necrotic soft tissue segment of skin and subcutaneous tissue in the right anterolateral ankle area approximately 9 x 4 cm. He underwent incision, drainage and debridement of the skin and subcutaneous tissue of the right lower anterior ankle area and application of wound VAC device. His initial admission to the hospital was by Dr. Mancilla on November 06. The patient is known to have bilateral chronic lymphedema of lower extremities. Other medical issues include buprenorphine maintenance therapy for distant history of opiate substance abuse. I have been following the patient as an outpatient in the wound care clinic with wound VAC changes two days a week. He has had progressive decline in his overall appearance of his leg as erythema and swelling has worsened. Notably, the patient is working on a routine basis in a gas station, although he attempts to elevate his leg between his work episodes has been rather ineffective in decreasing the edema of the leg. Several areas of the leg are not previously problematic and are now emerged as subepithelial fluid collections highly consistent with abscess. The dominant lesion of his ankle has some areas of desiccated fat, but no exposed tendons, granulation is noted in much of the area. He presented again today in the day surgery area, Wound Care Clinic, where he was found to have worsened erythema and swelling. He was evaluated by Dr. Mancilla and I have admitted the patient for further care for cellulitis of the leg and possible drainage or debridement if necessary. REVIEW OF SYSTEMS: He denies any fever or chills. He does have somewhat increased pain in the right leg. PHYSICAL EXAMINATION: GENERAL: A pleasant, morbidly obese white man, who does not look systemically toxic at Electronically Signed By: SONI BURGOS MD 12/25/22 1830 PATIENT NAME: NORMA BECERRA HISTORY AND PHYSICAL DATE OF : [birth year] REPORT #: [id number] PHYSICIAN: SONI BURGOS MD PCP: CHEYENNE WHARTON PA-C REPORT IS CONFIDENTIAL AND NOT TO BE RELEASED WITHOUT AUTHORIZATION [facility] [address] [place], [place] [address] Signed the moment. NECK: Trachea is midline. Mucous membranes are moist. CHEST: Clear. HEART: Regular. ABDOMEN: Obese, but soft. EXTREMITIES: Lower extremities are examined showing significant obesity bilaterally. The left leg shows some brawny edematous changes, but minimal compared to the right side. The right side shows intense cellulitic change with fluid collections in the subepithelial spaces posteriorly, laterally, and medially. The previous wound appears to be granulating in part related to the wound VAC device. There were some areas of desiccated fat noted as well, which may benefit from debridement as well. OUTPATIENT MEDICATIONS: Have included buprenorphine, lisinopril, and DSS and sennosides for constipation. ASSESSMENT: The patient has recurrent cellulitis, which will benefit from leg elevation, IV antibiotics and likely wound drainage and debridement. We will schedule this for tomorrow. The unfortunate combination of his need to persistently be at work without leg elevation may be exacerbating the problem. Additionally, however, undrained purulent collections in the subcutaneous space will never allow for complete healing unless reasonably drained. It was the intention that the unifocal necrotic skin area over the dorsum of the ankle with granulate, and ultimately be able to be grafted or otherwise closed. This is still anticipated, but the other areas any drainage as well. Discussed the risk of bleeding, infection, need for additional treatment, so forth with him. He understands and wished to proceed. PLAN: He will be admitted on the Surgery Service with Medicine Service consulting for right lower extremity cellulitis (recurrent). MD ÁNGEL Gale/MODL /[id number] Electronically Signed By: SONI BURGOS MD 12/25/22 1830 PATIENT NAME: NORMA BECERRA HISTORY AND PHYSICAL DATE OF : [birth year] REPORT #: [id number] PHYSICIAN: SONI BURGOS MD PCP: CHEYENNE WHARTON PA-C REPORT IS CONFIDENTIAL AND NOT TO BE RELEASED WITHOUT AUTHORIZATION [address] [address] Signed cc: TETO Franco MD Copies: RADHA MANCILLA MD ~ Electronically Signed By: SONI BURGOS MD 12/25/22 1830 PATIENT NAME: NORMA BECERRA HISTORY AND PHYSICAL DATE OF : [birth year] REPORT #: [id number] PHYSICIAN: SONI BURGOS MD PCP: CHEYENNE WHARTON PA-C REPORT IS CONFIDENTIAL AND NOT TO BE RELEASED WITHOUT AUTHORIZATION
--- NOTE | 2022-12-25 18:39 | NUR ---
PATIENT DISCHARGED AT 1815 WITH A FRIEND. PATIENT WAS TAKEN OUT BY WHEELCHAIR. PATIENT HAD HIS BELONGINGS AND WOUND VAC. PATIENT SAW PHARAMCY AND GOT DISCHARGE EDUCATION ON FOLLOW UP APPT. PATIENT HAD NO CONCERNS. IV WAS REMOVED.
--- NOTE | 2022-12-27 11:23 | PATH ---
[facility] [address] [facility] [place], [place] [address] Signed SPECIMEN(S): A RIGHT FOOT SPECIMEN SOURCE: A. RIGHT FOOT CLINICAL HISTORY: Cellulitis wound necrosis. Right foot and leg cellulitis. FINAL PATHOLOGIC DIAGNOSIS: Right foot: - Mena soft tissue with abundant tissue necrosis and prominent acute and chronic inflammation (abscess). JVR:osmin:C2NR MICROSCOPIC EXAMINATION: Histologic sections of all submitted blocks are examined by light microscopy. These findings, together with the gross examination, support the pathologic diagnosis. GROSS DESCRIPTION: The specimen, labeled and designated "Neno, A" and designated on the requisition "products of debridement right foot," is received in formalin and consists of a portion of hale-pink to red-brown soft friable tissue (4.3 x 4.0 x 1.6 cm in aggregate). The tissue is sectioned to reveal white-hale to red-brown soft cut surfaces. Apartment Hotel Manager sections are submitted in cassette A1. AC (under the direct supervision of a pathologist) The Gross Description was prepared using a voice recognition system. The report was reviewed for accuracy; however, sound-alike word errors, addition and/or deletions may occur. If there is any question about this report, please contact Client Services. PERFORMING LABORATORY: The technical component was performed by [facility], [address] [place] [id number] (CLIA# [id number]). Professional interpretation was performed by [facility] - [facility], [address] [place] [id number] (CLIA#: [id number]). Diagnostician: Lee Collado MD Pathologist Electronically Signed 12/27/2022 PATIENT NAME: NORMA BECERRA PATHOLOGY DATE OF : [birth year] REPORT #: [id number] PHYSICIAN: [facility] PCP: CHEYENNE WHARTON PA-C REPORT IS CONFIDENTIAL AND NOT TO BE RELEASED WITHOUT AUTHORIZATION [address] [address] Signed Copies: ~ PATIENT NAME: NORMA BECERRA PATHOLOGY DATE OF : [birth year] REPORT #: [id number] PHYSICIAN: [facility] PCP: CHEYENNE WHARTON PA-C REPORT IS CONFIDENTIAL AND NOT TO BE RELEASED WITHOUT AUTHORIZATION
--- NOTE | 2022-12-28 15:07 | OR ---
[facility] [address] [place], [place] [address] Signed DATE OF OPERATION: 12/19/2022 SURGEON: Soni Burgos MD PREOPERATIVE DIAGNOSES: 1. Right lower leg extensive cellulitis including ankle and foot. 2. Multiple foci of necrosis and abscess medial, lateral and dorsal. 3. Morbid obesity. POSTOPERATIVE DIAGNOSES: 1. Right lower leg extensive cellulitis including ankle and foot. 2. Multiple foci of necrosis and abscess medial, lateral and dorsal. 3. Morbid obesity. PROCEDURES: 1. Exam under anesthesia. 2. Incision and drainage of multiple abscesses of foot and ankle (prolonged, complicated and difficult). 3. Debridement of soft tissue including necrotic tissues irrigation (low pressure pulse irrigation). 4. Application of complex wound VAC device. ANESTHESIA: General, LMA, Soni Greene CRNA INDICATIONS: This 37-year-old morbidly obese white man is a patient of TETO Franco. He was hospitalized a number of weeks ago by Dr. Mancilla with advanced cellulitis of the right lower extremity, which was recurrent. He has significant morbid obesity and other comorbidities, but not diabetes. I was consulted at the time of his previous admission as he had a necrotic patch of soft tissue over the ankle. This was debrided sharply and wound VAC therapy initiated. He still had a fair amount of swelling and edema and so forth. He was discharged to home initially with oral antibiotics and outpatient wound care upon which I have been following his progress. Overtime, he had relatively good granulation of the previously debrided wounds in other areas in the medial and lateral aspect of the foot and in areas of the distal forefoot and to a lesser extent the calf have shown inflammation and swelling and what appears to be purulent collections. 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 His evaluation yesterday confirmed considerable amount of erythema, edema, and the necrotic wounds and so forth and on that basis I directly admitted him to the hospital for further evaluation and care. He has been initiated on IV antibiotics with leg elevation and his foot does appear much better today as regards to swelling, but he still has the necrotic and quite obviously abscessed areas of the soft tissue. He is admitted at this time to the operating room to undergo debridement, irrigation, change of wound VAC as necessary and so on. FINDINGS: There are multiple areas of necrotic tissue with purulence particularly in the medial aspect of the leg, not previously an issue. Additionally, over the dorsum of the foot, the previous debrided wound was granulating well overall, though did require some additional debridement. The lateral foot had pockets of pus requiring incision and drainage and debridement did include skin, subcutaneous tissue and fascial tissue, but no actual bone excision. There were several small more limited foci of infection in the lateral right calf and in the medial thigh, which were debrided and drained as well. A complex wound VAC was applied with bridges between the areas to allow for good suction. DESCRIPTION OF PROCEDURE: The patient was brought to the operating room, given a general LMA type anesthetic. The patient has been on IV antibiotics. Photographs were taken and the right lower extremity was prepared with Betadine solution and draped sterilely. The wound VAC had been removed. The wound on the dorsum of the foot was granulating in many areas and some areas had desiccated fat, which was then debrided. Hemostasis was assured with electrocautery and packing. The lateral aspect of the right foot where several contiguous areas of necrosis and bogginess and abscess, which were incised and debrided which included skin, subcutaneous tissue, and necrotic fatty tissue. These were made to be in continuity considering they connected beneath the skin quite notably. Debridement once complete allowed for packing of those wounds temporarily. Attention was turned towards the medial aspect of the right leg. Several areas with necessitation of purulence and necrotic tissue were debrided including excision of skin, subcutaneous tissue, and so forth. All of them were debrided with banjo curette or other smaller curettes. Interdigital small abscess foci were similarly debrided on the dorsum of the foot as well as the medial calf and medial thigh. Pulse irrigation at low pressure was initiated allowing for cleansing of the wounds more fully. Care was taken to avoid high pressure irrigations notably. Subsequent to this, the dominant wounds were then covered with black foam for the wound VAC device. Bridges for the separate areas were made so as to allow for one device preventing suction. Ultimately, 120 mmHg suction was applied with the device. The Electronically Signed By: SONI BURGOS MD 12/28/22 1507 PATIENT NAME: NORMA BECERRA OPERATIVE REPORT DATE OF : [birth year] REPORT #: [id number] PHYSICIAN: SONI BURGOS MD PCP: CHEYENNE WHARTON PA-C REPORT IS CONFIDENTIAL AND NOT TO BE RELEASED WITHOUT AUTHORIZATION [facility] [address] [place] [address] Signed patient was ultimately transferred to the stretcher and extubated and taken to the recovery room in good condition. BLOOD LOSS: Was between 250 and 500 mL in aggregate (closer to 250 in my opinion). The operation was prolonged, complicated, and difficult related to the extent of disease, but was accomplished safely. MD ÁNGEL Gale/BALDEV /[id number] cc: MD Cheyenne Mcgrath PA Copies: RADHA MANCILLA MD ~ Electronically Signed By: SONI BURGOS MD 12/28/22 1507 PATIENT NAME: NORMA BECERRA OPERATIVE REPORT DATE OF : [birth year] REPORT #: [id number] PHYSICIAN: SONI BURGOS MD PCP: CHEYENNE WHARTON PA-C REPORT IS CONFIDENTIAL AND NOT TO BE RELEASED WITHOUT AUTHORIZATION
--- NOTE | 2022-12-28 15:07 | DS ---
[facility] [address] [place], [place] [address] Signed ADMISSION DATE: 12/18/2022 DISCHARGE DATE: 12/25/2022 REASON FOR ADMISSION: This 37-year-old white man is admitted with worsening of right lower extremity cellulitis and probable undrained soft tissue abscesses. This patient was initially admitted to the hospital by Dr. Mancilla on November 06, 2022, with rather severe right lower extremity cellulitis. He has longstanding chronic venous stasis disease bilaterally, worse on the right than on the left. I consulted for an area of necrotic skin and subcutaneous tissue of the anterolateral right ankle, measuring approximately 9 x 4 cm. He underwent incision, drainage, and debridement of the skin and subcutaneous tissue and application of wound VAC device. I have been following the patient in the Wound Care Clinic with wound VAC dressing changes twice a week. He has been recommended to keep leg elevated. 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 Evaluation in the Wound Care Clinic on the day of admission showed significant erythema, cellulitis of the ankle, foot, and lower extremity and areas of necessitation indicative of necrotic wound, other than the dorsum of the ankle as well as necrotic tissue and probable abscess. On that basis, he is admitted for further evaluation and care. PERTINENT PHYSICAL EXAMINATION: GENERAL: Showed an obese white man, who is not systemically toxic. EXTREMITIES: Lower extremities showed obesity. Left leg had brawny edematous change, but minimal compared to the right side. The right side showed intense cellulitic change in fluid collections in the subepithelial space posterolaterally and medially. Previous wound appears to be granulating well in relation to the wound VAC device. Some areas of desiccated fat were noted inferior medially. HOSPITAL COURSE: The patient is on buprenorphine schedule for previous history of opiate addiction. In addition, he has hypertension, for which he takes lisinopril. The patient was admitted and given intravenous antibiotics and consultation undertaken with the hospitalist, Dr. Mancilla, who additionally provided perspective. On December 19, 2022, he underwent operative management, which included incision and debridement of soft tissue, including skin, subcutaneous fat, deep fascial layers in Electronically Signed By: SONI BURGOS MD 12/28/22 1507 PATIENT NAME: NORMA BECERRA DISCHARGE SUMMARY DATE OF : [birth year] REPORT #: [id number] PHYSICIAN: SONI BURGOS MD PCP: CHEYENNE WHARTON PA-C REPORT IS CONFIDENTIAL AND NOT TO BE RELEASED WITHOUT AUTHORIZATION [facility] [address] [place], [place] [address] Signed several areas of the forefoot, ankle, and calf area. Wound VAC application was undertaken. The wound VAC was somewhat complex and there were several wounds to be covered by only one wound VAC device using a bridge technique with wound VAC sponge. The patient had marked improvement of his edema with leg elevation and ongoing treatment with antibiotics. By Friday, December 23, 2022, he was taken back to the operating room for further inspection. This showed marked improvement of most of the wounds, but additional debridement of necrotic tissue was noted in some of the anterolateral wounds. After thorough debridement, wound VAC application was undertaken once again. At this point, he has marked improvement of his cellulitic changes and possibly resolution of the cellulitis. The wound VAC is working well on all of those wounds that have been opened and debrided. Long-term goal was to provide wound closure by whatever means, possibly placing a split-thickness skin grafting. I believe it is too early to attempt that, as he is still resolving the cellulitic process, though in many ways, it appears to have resolved almost entirely now. He still has chronic lymphedema of both lower extremities. At discharge, he will be sent home with a wound VAC device, anticipating wound VAC changes Mondays and . An appointment has been set up for him on , 1:30 p.m. Long talk was given to the patient on multiple occasions regarding the importance for compliance with wound management, as he has some threat of limb loss if recurrent or persistent disease should be present. 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 He does have support at home, including his . I will see him back in the Wound Care Clinic on and each visit to the Wound Care Clinic if at all possible. He understands fully the importance of his participating in the wound care plan by leg elevation and so on. DISCHARGE MEDICATIONS: His discharge medications will include, 1. Ibuprofen 600 mg p.o. q.6 hours as needed for pain, #30, refill three. 2. Tylenol 500 mg two tablets p.o. q.6 hours p.r.n. pain, #60, refill two. 3. Senokot laxative two tabs daily as needed for constipation, #20. Electronically Signed By: SONI BURGOS MD 12/28/22 1507 PATIENT NAME: NORMA BECERRA DISCHARGE SUMMARY DATE OF : [birth year] REPORT #: [id number] PHYSICIAN: SONI BURGOS MD PCP: CHEYENNE WHARTON PA-C REPORT IS CONFIDENTIAL AND NOT TO BE RELEASED WITHOUT AUTHORIZATION [facility] [address] [place], [place] [address] Signed 4. Antibiotics, ciprofloxacin 500 mg p.o. b.i.d., #30, and Flagyl 375 mg p.o. t.i.d., #45. 5. He will continue with his usual medication of Suboxone (buprenorphine/naloxone) 2 mg, 8 mg t.i.d. 6. Lisinopril hydrochlorothiazide 06/07.5 one p.o. daily. DISCHARGE DIAGNOSES: 1. Recurrent and persistent significant right lower extremity cellulitis with necrotic subcutaneous wounds (multiple). 2. Status post exam under anesthesia, open debridement and excision of multiple foot and ankle soft tissue infections, including right lateral calf with application of wound VAC. 3. Distant history of opiate addiction, now on Suboxone. 4. Obesity. 5. Chronic bilateral lymphedema. MD ÁNGEL Gale/ELVINL /[id number] cc: TETO Franco Copies: ~ Electronically Signed By: SONI BURGOS MD 12/28/22 1507 PATIENT NAME: NORMA BECERRA DISCHARGE SUMMARY DATE OF : [birth year] REPORT #: [id number] PHYSICIAN: SONI BURGOS MD PCP: CHEYENNE WHARTON PA-C REPORT IS CONFIDENTIAL AND NOT TO BE RELEASED WITHOUT AUTHORIZATION
--- NOTE | 2022-12-28 15:07 | OR ---
[facility] [address], [place] [address] Signed DATE OF OPERATION: 12/23/2022 SURGEON: Soni Burgos MD PREOPERATIVE DIAGNOSES: 1. Right leg cellulitis with advanced multiple necrotic ulcerations. 2. Status post extensive debridement, application of wound VAC, December 19. POSTOPERATIVE DIAGNOSES: 1. Marked improvement of lower extremity cellulitis and edema. 2. Minimal remaining necrotic tissue (dorsum of foot). PROCEDURES: 1. Exam under anesthesia. 2. Debridement (additional) of right foot necrotic ulcerative tissue. 3. Removal and re-application of wound VAC device (complicated). ANESTHESIA: Intravenous sedation; Matthew Abebe CRNA INDICATIONS: This 37-year-old obese white man was admitted to the hospital by ut on December 18, 2022. Following evaluation, the wound care clinic showing foul smelling infected cellulitic foot and calf. He had undergone debridement on the dorsum of the foot with application of wound VAC device weeks prior to that. He has been followed in the outpatient Wound Care Clinic. His admission to the hospital allowed for debridement of the various ulcerative necrotic lesions of his foot on December 19, 2022, with application of wound VAC device with multiple bridges due to the numerous large necrotic ulcerations. He has remained largely with right leg elevation higher than his heart, IV antibiotics and so on. He is now day 4, anticipating wound VAC dressing change. He is admitted to the operating room to undergo exam under anesthesia, debridement as appropriate and re-application of wound VAC device. He understands the risk of bleeding, infection, and need for other and additional treatments and wished to proceed. FINDINGS: Remarkable improvement of his leg edema was noted. No doubt related to leg elevation. The cellulitic process is markedly improved as well. The wounds were granulating. Impressively well one of the wounds over the dorsum of the foot still had necrotic tissue for which sharp debridement and banjo curette debridement was accomplished. Electronically Signed By: SONI BURGOS MD 12/28/22 1507 PATIENT NAME: NORMA BECERRA OPERATIVE REPORT DATE OF : 83 REPORT #: [id number] PHYSICIAN: SONI BURGOS MD PCP: CHEYENNE WHARTON PA-C REPORT IS CONFIDENTIAL AND NOT TO BE RELEASED WITHOUT AUTHORIZATION [facility] [address], [place] [address] Signed The defects of the foot measured on the lateral aspect of 7 cm x 2 cm x 2 cm. Dorsum of the foot is 8 cm x 4 cm x 2 cm. The medial aspect of the foot wound is 6 cm x 4 cm x 2 cm. Areas of the heel and dorsum of the foot are 1 cm x 1 cm, and on the lateral calf on the right 2 cm x 1 cm and 1 cm. DESCRIPTION OF PROCEDURE: The patient was brought to the operating room, placed in the supine position, given intravenous sedation for deep sedation with propofol infusional technique. Wound VAC dressings were applied which caused some discomfort, but ultimately once removed the patient was again well sedated. The wound VAC devices were removed from the lateral anterior and medial aspects of the right foot as well as removal of dressings on the right lateral calf and medial calf. Impressive granulation was noted in all the wounds. One over the dorsum of the foot had some necrotic tissue. This was sharply debrided with a 15 blade as well as a banjo curette down to completely viable tissue. This was mostly in the medial aspect actually in relation to the previous saphenous vein position. Irrigation was undertaken. The foot cleansed fully. There was no evidence of other necrotic tissue. The various wound defects (previously described dimensions) were then covered with a black foam from the wound VAC device and adhesive applied. Bridges between the aforementioned areas performed in the standard way and ultimately the Barbosa and Nephew negative pressure wound therapy device was applied at 120 mmHg pressure, which showed a good seal and occlusion of the areas in question. Smaller lesions on right lateral calf and dorsum of the foot were packed with plain gauze and covered with Allevyn dressing. The patient was ultimately allowed to return from sedation and taken to the recovery room in good condition having suffered no complication. Blood loss was 20 mL. MD ÁNGEL Gale/MODL /[id number] cc: Electronically Signed By: SONI BURGOS MD 12/28/22 1507 PATIENT NAME: NORMA BECERRA OPERATIVE REPORT DATE OF : [birth year] REPORT #: [id number] PHYSICIAN: SONI BURGOS MD PCP: CHEYENNE WHARTON PA-C REPORT IS CONFIDENTIAL AND NOT TO BE RELEASED WITHOUT AUTHORIZATION [address] [address] Signed Copies: ~ Electronically Signed By: SONI BURGOS MD 12/28/22 1507 PATIENT NAME: NORMA BECERRA JACKIE OPERATIVE REPORT DATE OF : 83 REPORT #: [id number] PHYSICIAN: SONI BURGOS MD PCP: CHEYENNE WHARTON PA-C REPORT IS CONFIDENTIAL AND NOT TO BE RELEASED WITHOUT AUTHORIZATION
== END 2022-12-25 18:25 | disposition home or self-care (01) | DRG 854 ==
LOC: OPV-DS 10:00 → MS 12:32
PROVIDERS: ADMIT Surgery; ATTEND Surgery
PROC: 3E03329 Introduction of Other Anti-infective into Peripheral Vein, Percutaneous Approach (ICD-10-PCS; 2022-12-19)
PROC: 0J9Q0ZZ Drainage of Right Foot Subcutaneous Tissue and Fascia, Open Approach (ICD-10-PCS; 2022-12-19)
PROC: 0JDQ0ZZ Extraction of Right Foot Subcutaneous Tissue and Fascia, Open Approach (ICD-10-PCS; principal; 2022-12-19 12:00)
PROC: 0JBQ0ZZ Excision of Right Foot Subcutaneous Tissue and Fascia, Open Approach (ICD-10-PCS; 2022-12-23)
PROC: 0JDQ0ZZ Extraction of Right Foot Subcutaneous Tissue and Fascia, Open Approach (ICD-10-PCS; 2022-12-23)
DX: A40.0 Sepsis due to streptococcus, group A (principal); I96 Gangrene, not elsewhere classified; L03.115 Cellulitis of right lower limb; L02.415 Cutaneous abscess of right lower limb; Z68.41 Body mass index [BMI] 40.0-44.9, adult; E66.01 Morbid (severe) obesity due to excess calories; I89.0 Lymphedema, not elsewhere classified; D63.8 Anemia in other chronic diseases classified elsewhere; I10 Essential (primary) hypertension; Z20.822 Contact with and (suspected) exposure to COVID-19; R73.03 Prediabetes; F11.90 Opioid use, unspecified, uncomplicated; Z87.442 Personal history of urinary calculi; Z87.891 Personal history of nicotine dependence; Z98.890 Other specified postprocedural states; Z90.89 Acquired absence of other organs; Z88.0 Allergy status to penicillin; Z88.1 Allergy status to other antibiotic agents; Z88.6 Allergy status to analgesic agent; Z79.899 Other long term (current) drug therapy
CPT/HCPCS: 00400; 01462; 36415; 80053; 83605; 85025; 86140; 87070; 87075; 87076; 87205; 88304; A9270; C9803; J0131; J0744; J0878; J1100; J1644; J1885; J2001; J2250; J2270; J2405; J2704; J2765; J3010; J7121; U0003

== ENCOUNTER 2023-02-01 10:02 | Inpatient (IN) | payer OTHER ==
[~2023-02-01] VITALS: Ht 182.9 cm; Wt 134.5 kg
--- NOTE | 2023-02-01 08:45 | NUR ---
PT CALLED HE HAD AN APPOINTMENT FOR A DRESSING CHANGE AT 0700. PT STATES HE OVERSLEPT AND IS ON HIS WAY. PT IN MANY FARMS.
[~2023-02-01 10:02] MED LIST changes: +ACETAMINOPHEN500 MG PO; +CIPRO500 MG PO; +FLAGYL375 MG PO; +IBUPROFEN600 MG PO; +LISINOPRIL-HCT1 EAC2 PO
[2023-02-01 11:45] VITALS: BP 117/65
--- NOTE | 2023-02-01 11:47 | NUR ---
LAB AT THE BEDSIDE. IV SLOW DRAW UNABLE TO COLLECT ENOUGH BLOOD FOR LABS
[2023-02-01 12:17] VITALS: BP 137/74
--- NOTE | 2023-02-01 12:17 | NUR ---
PT ARRIVED FROM DAY SURGERY BY STRETCHER. PT TRANSFERSE SELF TO BED AND IS UP TO RESTROOM INDEPENDANTLY. PT STEADY ON FEET. BMAT OF LEVEL 4. PT CHANGES IN TO GOWN ON HIS OWN, NO ASSISTANCE NEEDED. IV REMAINS IN PLACE FROM TIME IN DAY SURGERY, WNL. PT DENIES PAIN AND [place]. IV ASSESSED, WNL. FLUSHED AND SALINE LOCKED PER PROTOCOL. ALCOHOL CAPS APPLIED. PT REPORTS HE VAPES DAILY BUT DECLINES NICOTINE REPLACMENT WHILE AT THE HOSPITAL. PT EATING MCDONALDS BROUGHT TO HIM BY HIS SIGNIFICANT OTHER. PT IRRITABLE WITH CARES AND SIGNIFICANT OTHER ASKING FREQUENTLY "WHY ARE YOU GUYS HERE?" PT UPDATED ON PLAN OF CARE. ASSESSMSENT COMPLETED BY ALEJANDRA PARKER. NO ADDITIONAL REQUESTS OR COMPLAINTS. BED RAILS UP. CALL LIGHT WITHIN REACH.
--- NOTE | 2023-02-01 13:19 | NUR ---
LE 1009 PATIENT AMBULATES TO DAY SURGERY FOR SCHEDULED WOUND VAC DRESSING CHANGE. PATIENT IS IN ROOM 2. LE 1015 DR. BURGOS AT THE BEDSIDE TO SEE THE PT. DRESSING REMAINS IN PLACE. DR. BURGOS TO COME BACK TO EVALUATE THE PT ONCE THE DRESSING IS OFF. LEGS ELEVATED UP WITH THE STRETCHER. DRESSING REMOVED. WITH REMOVING THE BENJAMIN WRAP MAGGOTS NOTED ON THE LATERAL ASPECT OF THE LEG UNDER AND AROUND THE DRESSINGS. LE 1018 DR. BURGOS IN TO SEE PATIENT. DR. BURGOS SEES THE MAGGOTS. DR. BURGOS DISCUSSES WITH THE PT ABOUT BEING ADMITTED FOR TREATMENT AND TO PREPARE FOR A SKIN GRAFT. PT IS UPSET ABOUT THIS HE IS AFRAID OF LOSING HIS JOB. PT IS OKAY WITH BEING ADMITTED, BUT RELECTANT. PT'S AT THE BEDSIDE AND TELLING THE PT HOW IMPORTANT IT IS. WOUND #1:RIGHT LATERAL CALF SUPERIOR. MEASUREMENT: 1CM X 1CM. HYPERGRANULATED. WOUND #2: RIGHT LATERAL CALF MIDDLE. IMPROVING. MEASUREMENT: 2.8CM X 1.5CM X 0.3CM BASE: GRANULATING, SLOUGH EDGES:EDGES ARE EPITHELIALIZING AND CURLED DRAINAGE:MODERATE AMOUNT OF SEROUS DRAINAGE. WOUND #3: RIGHT LATERAL CALF INFERIOR. MEASUREMENT: 5CM X 2.4CM BASE: EXCORIATED, RED, SCATTERED DRAINAGE: SMALL AMOUNT OF SEROUS DRAINAGE. WOUND #4: RIGHT ANTERIOR ANKLE SUPERIOR. MEASUREMENTS: 1.8CM X 1.5CM X 0.5CM BASE: GRANULATING TISSUE WITH SLOUGH EDGES:EDGES ARE CURLED AND EPITHELIALIZING TISSUE. DRAINAGE:SMALL AMOUNT OF SEROSANGEOUS DRAINAGE. WOUND #5: RIGHT ANTERIOR ANKLE INFERIOR. IMPROVING. MEASUREMENTS: 3.5 CMX 7.5CM X 0.4CM BASE: GRANULATING TISSUE. EDGES: EDGES ARE CURLED AND MACERATED. DRAINAGE: MODERATE AMOUNT OF SEROSANGEOUS DRAINAGE. WOUND #6: RIGHT LATERAL FOOT. MEASUREMENTS: 1CM X 6.5CM X 0.5CM TUNNELING AT 3 O'CLOCK 1 CM BASE: CLEAN NON-GRANULATING TISSUE AND SLOUGH EDGES: EDGES ARE CURLED WITH MACERATION DRAINAGE: MODERATE AMOUNT OF SEROUS DRAINAGE. WOUND #7: RIGHT MEDIAL CALF SUPERIOR. HEALED. WOUND #8:RIGHT MEDIAL CALF MIDDLE. HEALED. WOUND #9:RIGHT MEDIAL CALF INFERIOR. MEASUREMENTS: 2CM X 7.5CM X 0.4CM BASE:GRANULATING TISSUE WITH SLOUGH. EDGES:EDGES ARE CURLED AND EPITHELIALIZING TISSUE. WOUND #10: RIGHT MEDIAL ANKLE. MEASUREMENTS: 3CM X 4CM X 1CM BASE: SLOUGH TISSUE. EDGES: EDGES ARE CURLED AND EPITHELIALIZING. DRAINAGE: MODERATE AMOUNT OF SEROUS DRAINAGE. WOUND #11: RIGHT ANTERIOR FOOT NEAR ANKLE. MEASUREMENTS: 1CM X 1.8CM X 0.1CM BASE: HYPERGRANULATING TISSUE. EDGES: EDGES ARE CURLED AND MACERATED DRAINAGE: SMALL AMOUNT OF SEROUS DRAINAGE. WOUND #12: RIGHT ANTERIOR FOOT NEAR TOES. MEASURMENTS: 0.5CM X 0.5CM X 0.1CM BASE: WOUND IS ALMOST HEALED EDGES: EDGES ARE CURLED. DRAINAGE: MINIMAL AMOUNT OF DRAINAGE. WOUND #13: RIGHT POSTERIOR CALF SUPERIOR. IMPROVING. MEASURMENTS: 2.1CM X 1CM X 0.1CM BASE: SMALL AMOUNT OF SLOUGH, UNABLE TO REMOVE. EDGES: EDGES ARE CURLED. DRAINAGE: SMALL AMOUNT OF SEROSANGUINEOUS DRAINAGE. WOUND #14: RIGHT MEDIAL CALF POSTERIOR, NOT IMPROVING, 1 WOUND TUNNELED TOGETHER. PAINFUL TO TOUCH. MEASUREMENTS: 1CM X 3CM X 0.2CM. TUNNELED 3 CM AT 3 O'CLOCK. BASE: RED, SLOUGH, SMALL AMOUNT REMOVED. EDGES: CURLED DRAINAGE: MODERATE AMOUNT SEROUS FLUID. WOUND #15: RIGHT FLORES SUPERIOR MIDDLE. NOT IMPROVING. PAINFUL TO TOUCH. MEASUREMENTS: 2CM X 1.8CM X 0.4CM BASE: RED AND SLOUGH. EDGES: EPITHELIALIZING AND CURLED DRAINAGE: MODERATE AMOUNT OF SEROUS DRAINAGE. 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 BURGOS. ALL MAGGOTS REMOVED. WOUNDS COVERED WITH GAUZE AND KERLEX PER DR. BURGOS.
[2023-02-01] MEDS ORDERED: DOXYCYCLINE MO100 MG PO (13:50)
--- NOTE | 2023-02-01 13:52 | NUR ---
MED REC COMPLETE
--- NOTE | 2023-02-01 14:05 | NUR ---
Rounded on patient to ensure leg elevated, pt asleep, IV pump alarming. IV does not flush at this time. Tamika RN called for assistance- will round shortly to assess for new ultrasound IV
--- NOTE | 2023-02-01 14:14 | NUR ---
ALMA ROSA 1200- PT TAKEN TO MED SURG ROOM #124. REPORT GIVEN. ALL QUESTIONS ANSWERED. PT ABLE TO STAND AND MOVE HIMSELF TO THE HOSPITAL BED. TOLERATED WELL. CALL LIGHT AND GOWN PROVIDED TO THE PT. PT CHANGING HIMSELF.
--- NOTE | 2023-02-01 14:43 | NUR ---
Tamika RN in room to start new IV in R hand. Pt resting in bed with eyes closed. States no needs at this time.
--- NOTE | 2023-02-01 14:44 | NUR ---
PT ALSEEP, DID NOT DISTURB. MAY HAVE SKIN GRAFT LATER TODAY. WILL FOLLOW
--- NOTE | 2023-02-01 15:34 | NUR ---
Rounded on patient, resting in bed with eyes closed, RR even and unlabored. IV levaquin infusing WNL.
[2023-02-01 16:50] VITALS: BP 133/56
--- NOTE | 2023-02-01 19:05 | NUR ---
Received report, nataliia pt. Pt has been sleeping on and off. Educated on keeping RLE on sling elevated.
[2023-02-01 19:38] VITALS: BP 111/59
--- NOTE | 2023-02-01 20:34 | NUR ---
DR BURGOS CALLED TO ENSURE pt WAS KEEPING HIS FOOR ELEVATED ABOVE HIS HEART, REASSURED pt WAS DOING SO-VERIFIED BY THIS RN. NO ORDERS RECEIVED AT THIS TIME. PRIMARY RN FLORENCE UPDATED.
--- NOTE | 2023-02-02 00:10 | NUR ---
Pt was found holding his Vap, ask the patient to give Vap to staff to be locked until discharge. Pt refused to give VAP and said, if he has to give his vap away, he will leave AMA. Notified charge nurse. Requested pt to put VAP in lock box for now. Will continue to monitor pt.
[2023-02-02 02:49] VITALS: BP 105/59
[2023-02-02 06:31] VITALS: BP 105/67
[2023-02-02 09:30] VITALS: BP 137/73
--- NOTE | 2023-02-02 11:00 | NUR ---
Patient resting in bed, alert and oriented x4. RLE elevated above heart level. dressing to RLE is CDI, palpable pedal pulse. Patient's IV site is patent, fluids infusing per provider order. Personal supplies and call light within reach of pt.
--- NOTE | 2023-02-02 11:45 | NUR ---
Spoke with Dany. He cont. to live with his and family in [place]. He cont. to work two jobs, but now is able to keep his leg elevated at both jobs or not walk on it as frequently. He denies needs and thinks he will no longer need his wound vac. I will check with Dr. Brown. Pt plans on dc to home when cleared medically. Denies needs.
[2023-02-02 13:10] VITALS: BP 135/76
--- NOTE | 2023-02-02 17:30 | NUR ---
Admin ibuprofen 600mg po for reports of RLE pain. Right leg remains above heart level at this time. Patient provided with fresh water. IV remains patent.
[2023-02-02 17:50] VITALS: BP 143/73
--- NOTE | 2023-02-02 19:40 | NUR ---
REPORT RECEIVED FROM DAY SHIFT RN. PT RESTING IN BED. PT'S RIGHT LEG ELEVATED. SAFETY PRECAUTIONS MAINTAINED. CALL LIGHT WITHIN REACH. WILL CONTINUE TO MONITOR.
[2023-02-02 21:34] VITALS: BP 110/65
--- NOTE | 2023-02-02 21:50 | NUR ---
Assisted RN with wound care and cleaning on Pt's R calf. Care assumed by RN. No other needs.
--- NOTE | 2023-02-02 21:55 | NUR ---
PT ASSESSED AND MEDICATIONS GIVEN. PT'S DRSG CHANGED. WOUND CLEANSED AND WRAPPED IN FRESH GAUZ. IV ABX GIVEN. SAFETY PRECAUTIONS MAINTAINED. CALL LIGHT WITHIN REACH. WILL CONTINUE TO MONITOR.
[2023-02-03 05:42] VITALS: BP 132/79
--- NOTE | 2023-02-03 06:22 | NUR ---
PT RESTED WELL DURING THE SHIFT. DRSG CHANGED ON RIGHT LEG. RIGHT LEG KEPT ELEVATED IN SLING. ONLY SCHEDULED TYLENOL GIVEN FOR PAIN. PT AMBULATING TO BATHROOM. VSS. SAFETY PRECAUTIONS MAINTAINED. CALL LIGHT WITHIN REACH. WILL CONTINUE TO MONITOR.
[2023-02-03 09:35] VITALS: BP 131/83
--- NOTE | 2023-02-03 10:20 | NUR ---
Patien awake in bed, alert and oriented x4. Patient is on room air, respirations even and non labored. Patient has right leg elevated above heart level. Dressing to RLE is CDI. CMS is intact at this time. Patient tolerated 90% of his breakfast. No current needs at this time. Personal supplies and call light within reach.
--- NOTE | 2023-02-03 12:32 | NUR ---
Ibuprofen 600mg po admin at this time for RLE pain. RLE remains elevated above heart level. IV site patent.
--- NOTE | 2023-02-03 13:52 | HP ---
[facility] [address], [place] [address] Signed ADMISSION DATE: 02/01/2023 REASON FOR ADMISSION: Recurrent right lower extremity cellulitis, multiple leg wounds and problematic wound healing. HISTORY OF PRESENT ILLNESS: This is a 38-year-old white man was initially evaluated by the Hospitalist Service for severe right lower extremity cellulitis in the background of previous right leg cellulitis and bilateral venous stasis disease. I was consulted as there was a necrotic wound on the dorsum of the ankle on the right side undergoing debridement. A plan for skin grafting once healed was anticipated, wound VAC device was initiated. He had other pustular areas develop requiring extensive debridement and several wounds were noted in the ankle, dorsum of the foot and elsewhere as well as recurrent swelling of the foot. He underwent aggressive debridement and application of wound VAC, intravenous antibiotics and leg elevation, which improved his leg swelling quite markedly. 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 Various interventions were undertaken to allow for elevation of his leg, but much of the time compliance was marginal or incomplete. I have seen him on an episodic basis in the outpatient setting with wound VAC therapy and many of his wounds from his foot, leg and ankle are now granulating well or essentially closed. In the past week, he has had excessive swelling, development of more erythema than usual. Oral antibiotics have been initiated. He was seen by several staff members at various venues throughout the community including a primary school graduation, a sporting event, other is really without his leg elevated as might be hope for. In his evaluation in the wound care clinic today, his cellulitic changes have worsened. His edema has worsened and all the wounds are closing or granulating well anticipating skin graft therapy. Removal of his dressing showed part of the subcutaneous tissue and skin teaming with maggots. On that basis, he was admitted for further evaluation and care to include wound care, leg elevation, debridement if necessary, and ultimately skin grafting. PAST MEDICAL HISTORY: Notable for opiate addiction syndrome for which he has been on buprenorphine continuously. He does not strictly have diabetes mellitus. His outpatient provider is TETO Tsang. He was on the [place] [facility]. Electronically Signed By: SONI BURGOS MD 02/03/23 1352 PATIENT NAME: NORMA BECERRA HISTORY AND PHYSICAL DATE OF : 83 REPORT #: [id number] PHYSICIAN: SONI BURGOS MD PCP: CHEYENNE WHARTON PA-C REPORT IS CONFIDENTIAL AND NOT TO BE RELEASED WITHOUT AUTHORIZATION [facility] [address], [place] [address] Signed MEDICINES: At time of admission include buprenorphine 8 mg sublingual t.i.d., doxycycline 100 mg p.o. b.i.d., ibuprofen 600 mg daily, lisinopril hydrochlorothiazide 1 p.o. daily, sennosides-docusate sodium two tablets p.o. b.i.d. REVIEW OF SYSTEMS: He denies any shortness of breath or chest pain. He has had no dysphagia or dysuria. Denies any fever, chills. PHYSICAL EXAMINATION: GENERAL: An obese white man who is cooperative and pleasant as usual. CHEST: Clear. HEART: Regular without murmur. ABDOMEN: Obese, but soft. EXTREMITIES: Examination of the lower extremities shows bilateral lower extremity chronic venous stasis disease. The left ankle and foot though enlarged showed no sign of ulceration or infection in any way. The right foot is markedly edematous and somewhat erythematous. Over the dorsum of the ankle was a 5 x 4 x 1 cm wound that is granulating quite well. Smaller lesions in the medial ankle that a linear in shape no longer requiring wound VAC dressing changes and surrounding skin edematous enough that they are touching each other and may cause macerations. In the lateral ankle area, one small open wound teaming with maggots and subcutaneous rather the skin itself with a moist desquamating surface that has maggots as well. ASSESSMENT: He needs to be admitted for leg elevation primarily IV antibiotics secondarily direct wound care and ultimately a plan for skin grafting once the edema has resolved and there is no evidence of cellulitis. A stocking has already been fitted for him anticipating this. His compliance for leg elevation is marginal despite some effort to do so as he is compelled to earn a living as can be understood. Once no longer having open wounds, a compression stocking would be the mainstay of treatment for his right lower and even left lower extremities. He agrees for admission to the hospital at this time. Leg elevation, wound care and antibiotics as appropriate. Please note that initial history and physical dictation was performed, but due to an administrative error, initial dictation was lost and this represents repeat dictation performed on February 01. Electronically Signed By: SONI BURGOS MD 02/03/23 1352 PATIENT NAME: NORMA BECERRA HISTORY AND PHYSICAL DATE OF : [birth year] REPORT #: [id number] PHYSICIAN: SONI BURGOS MD PCP: CHEYENNE WHARTON PA-C REPORT IS CONFIDENTIAL AND NOT TO BE RELEASED WITHOUT AUTHORIZATION [facility] [address] [place], [place] [address] Signed MD ÁNGEL Gale/MODL /[id number] Copies: ~ Electronically Signed By: SONI BURGOS MD 02/03/23 1352 PATIENT NAME: NORMA BECERRA HISTORY AND PHYSICAL DATE OF : [birth year] REPORT #: [id number] PHYSICIAN: SONI BURGOS MD PCP: CHEYENNE WHARTON PA-C REPORT IS CONFIDENTIAL AND NOT TO BE RELEASED WITHOUT AUTHORIZATION
[2023-02-03 13:59] VITALS: BP 125/58
--- NOTE | 2023-02-03 14:01 | NUR ---
Right leg dressing changed per provider order. Right leg cleased with chlorhexidine wash. Plain gauze over open wounds then wrapped leg with kerlix. Patient tolerated well. Right leg elevated above heart level. CMS intact.
--- NOTE | 2023-02-03 16:54 | NUR ---
Patient resting in bed, no distress. RLE elevated above heart level. CMS intact.
[2023-02-03 17:49] VITALS: BP 118/69
--- NOTE | 2023-02-03 19:30 | NUR ---
REPORT RECEIVED FROM DAY SHIFT RN. PT RESTING IN BED WITH RIGHT LEG ELEVATED IN SLING. SAFETY PRECAUTIONS MAINTAINED. CALL LIGHT WITHIN REACH. WILL CONTINUE TO MONITOR.
[2023-02-03 20:49] VITALS: BP 118/70
--- NOTE | 2023-02-03 20:56 | NUR ---
PT ASSESSED AND MEDICATIONS GIVEN. PT RESTING IN BED WITH RIGHT LEG ELEVATED IN SLING. PT STATED PAIN IS 4/10. SCHEDULED TYNLENOL GIVEN. VSS. SAFETY PRECAUTIONS MAINTAINED. CALL LIGHT WITHIN REACH. WILL CONTINUE TO MONITOR.
[2023-02-04 05:44] VITALS: BP 124/59
--- NOTE | 2023-02-04 06:20 | NUR ---
PT RESTED WELL DURNG THE SHIFT. RIGHT LEG REMAINRED ELEVATED THROUGHOUT SHIFT. VSS. IV INTACT AND FLUIDS INFUSING PER ORDER. IV ABX GIVEN. PT ABLE TO AMBULATE TO BATHROOM INDEPENDENTLY. SAFETY PRECCAUTIONS MAINTAINED. CALL LIGHT WITHIN REACH. WILL CONTINUE TO MONITOR.
--- NOTE | 2023-02-04 07:54 | NUR ---
PT RESTING EYES CLOSED AT TIME OF SHIFT REPORT, LEFT UNDISTURBED. RIGHT LEG IS ELEVATED DRESSING INTACT. FRESH H20 AT BEDSIDE CALL LIGHT IN REACH.
[2023-02-04 09:54] VITALS: BP 131/78
--- NOTE | 2023-02-04 10:06 | NUR ---
PT RIGHT LE SCRUBBED AND DRESSING CHANGED. WELL TOLERATED PT DENIES PAIN OR DISCOMFORT. RESTING NOW LEG ELEVATED IN SLING WATCHING TV NEEDED ITEMS AT BEDSIDE.
--- NOTE | 2023-02-04 10:58 | NUR ---
PT CONTINUES RESTING WITH LEG ELEVATED AND NEEDED ITEMS IN REACH. UP INDEPENDANTLY TO TOILET THEN RETURNS TO RESTING LEG ELEVATED. DENIES NEEDS AT THIS TIME
--- NOTE | 2023-02-04 12:58 | NUR ---
PT TOLERATES 100% OF NOON MEAL UP IN THE ROOM INDEPENDANTLY TALKING ON THE PHONE
[2023-02-04 13:43] VITALS: BP 115/53
--- NOTE | 2023-02-04 14:39 | NUR ---
PT CONTINUES RESTING IN BED ELEVATING RLE CONSISTANTLY. WATCHING TV DENIES NEEDS OF
--- NOTE | 2023-02-04 17:32 | NUR ---
PT UP IN BED FOR EVENING MEAL. VERBALIZES UNDERSTANDING OF NPO AFTER MIDNIGHT. NO C/O PAIN OR DISCOMFORTS THE ENTIRE SHIFT. PT HAS KEPT RIGHT LOWER EXTREMETY ELEVATED CONSISTANTLY.
[2023-02-04 17:58] VITALS: BP 133/71
--- NOTE | 2023-02-04 19:32 | NUR ---
REPORT RECEIVED FROM DAY SHIFT RN. PT RESTING IN BED WITH RIGHT LEG ELEVATED IN SLING. NO DISTRESS NOTED. PT DENIED ANY COMPLAINTS OR CONCERNS. SAFETY PRECAUTIONS MAINTAINED. CALL LIGHT WITHIN REACH. WILL CONTINUE TO MONITOR.
[2023-02-04 20:49] VITALS: BP 113/62
--- NOTE | 2023-02-04 21:23 | NUR ---
Assisted RN with dressing change on R leg. RN assumed care. Call light left in reach. No other needs expressed by Pt.
--- NOTE | 2023-02-04 21:24 | NUR ---
PT ASSESSED AND MEDICATIONS GIVEN. RIGHT LEG DRSG DIANE DONE. BIOMASS PLANT MANAGER HELPED RN WITH DRSG CHANGE. VSS. PT RATING PAIN 4/10. SCHEDULED TYLENOL GIVEN. 2 PUDDINGS AND JORGE L CRACKERS GIVEN FOR SNACK. WATER REFILLED. SAFETY PRECAUTIONS MAINTAINED. CALL LIGHT WITHIN REACH. WILL CONTINUE TO MONITOR.
[2023-02-05] VITALS (7 sets, daily range): BP systolic 108–129; BP diastolic 62–76
--- NOTE | 2023-02-05 05:58 | NUR ---
PT RESTED WELL THROUGHOUT THE SHIFT. DRSG CHANGE DONE PER ORDER. PT TOLERATED IT WELL. IVF INFUSING PER ORDER. PT VOIDING WELL. PT NPO AT MIDNIGHT IN PREPARATION FOR SKIN GRAFT SURGERY TODAY. PAIN CONTROLLED WITH SCHEDULED TYLENOL. VSS. SAFETY PRECAUTIONS MAINTAINED. CALL LIGHT WITHIN REACH. WILL CONTINUE TO MONITOR.
--- NOTE | 2023-02-05 07:16 | NUR ---
PT RESTING EYES CLOSED AT TIME OF SHIFT REPORT, LEFT UNDISTURBED. RIGHT LEG IS ELEVATED CALL LIGHT IN REACH.
--- NOTE | 2023-02-05 08:35 | NUR ---
PRE-OP EDUCATION PROVIDED PT VERBALIZES UNDERSTANDING ASKS APPROPRIATE QUESTIONS DENIES CONCERNS.
--- NOTE | 2023-02-05 11:03 | NUR ---
PT RESTING IN BED WATCHING TV WAITING TO GO TO SURGERY. REMAINS NPO AND LEG ELEVATED
--- NOTE | 2023-02-05 11:40 | NUR ---
Spoke with Dany. He is waiting for surgery. Denies needs. Offered suduko, word find, or coloring books. He declines and states he plays games on his phone.
--- NOTE | 2023-02-05 14:50 | NUR ---
PT CONTINUES TO WAIT PATIENTLY FOR SURGICAL PROCEEDURE. NPO NO C/O PAIN, THIRST, HUNGER OR OTHER. CONTINUES TO ELEVATE HIS LEG DENIES NEEDS OF
--- NOTE | 2023-02-05 18:07 | NUR ---
02/05/231806 Gricelda Ahumada 180: PT ARRIVES TO PACU ON 6L O2 VIA MASK. MINIMAL RESPONSE TO PHYSICAL STIMULI.
--- NOTE | 2023-02-05 18:40 | NUR ---
PT BACK FROM O/R ALERT AND RESPONSIVE AGREES HE IS PAINFUL AND HUNGRY. CALL LIGHT AND NEEDED ITEMS IN REACH FRESH H20 TO BEDSIDE. EVENING MEAL AND PAIN MEDS PROVIDED. PT WATCHING TV
--- NOTE | 2023-02-05 18:54 | NUR ---
DR BURGOS GIVES FURTHER INSTRUCTIONS R/T ELEVATION AND DRESSINGS. REVIEWED WITH PT LEG IS NOT TO HANG IN THE SLING BUT RATHER BE SUPPORTED BY PILLOWS. DRESSING IS NOT TO BE CHANGED OR DISTURBED. PT VERBALIZES UNDERSTANDING AND AGREES TO GET UP ONLY BRIEFLY TO TOILET AND THEN RETURN TO RESTING WITH LEG ELEVATED. PT EATING EVENING MEAL AGREES PAIN MEDS WERE EFFECTIVE.
--- NOTE | 2023-02-05 19:38 | NUR ---
REPORT RECEIVED FROM ALEJANDRA BRUSH. pt AWAKE RESTING IN BED. LEG ELEVATED ON PILLOWS ABOVE HEART, SLING IN PLACE. pt RATES PAIN 5/10. RECENTLY MEDICATED WITH MOTRIN. URINAL PROVIDED. WIPES PROVIDED. CALL LIGHT IN REACH.
--- NOTE | 2023-02-05 19:42 | NUR ---
PATIENTS POST-OP VITALS TAKEN AND RECORDED. URINAL EMPTIED. INTAKE AND OUTPUT RECORDED. PATIENTS RLE IS ELEVATED IN THE TERRA SLING. PATIENT RATES PAIN AT A 5/10 AND STATED "I JUST RECEIVED IBUPROFEN". PATIENT DENIES ANY FURTHER NEEDS. CALL LIGHT IN REACH.
--- NOTE | 2023-02-05 20:35 | NUR ---
POST OP VS COMPLETED. PT REMAINS UNCHANGED THIS HOUR, RIGHT LEG ELEVATED ON 2 PILLOWS. LEFT THIGH DRESSING INTACT WITH SERSANGUOUS DRAINAGE UNDER DRESSING.
--- NOTE | 2023-02-05 20:54 | NUR ---
pt RESTING IN BED AWAKE WATCHING TV. SCHEDULED PAIN MEDICATIONS ADMINISTERED. pt DESCRIBES PAIN STABBING IN RIGHT LEG AND LIKE A ROAD RASCH ON LEFT THIGH. SMALL AMT SS DRAINAGE UNDER OP SITE ON LEFT THIGH. RIGHT LEG ELEVATED IN SLING. CSM INTACT. ICE WATER REFILLED. IV SITE FLUSHED WNL. IV ANTIBIOTIC INFUSING WNL.
--- NOTE | 2023-02-05 21:31 | NUR ---
PATIENTS LAST POST-OP VITALS TAKEN AND RECORDED. PATIENT IS RESTING IN BED WITH RLE ELEVATED IN TERRA SLING. PATIENT DENIES ANY NEEDS. CALL LIGHT AND BELONGINGS ARE WITHIN REACH.
[2023-02-06 00:49] VITALS: BP 110/64
--- NOTE | 2023-02-06 01:10 | NUR ---
CHECKED ON pt. pt AWAKE WATCHING SHOW ON CELL PHONE. ASSESSMENT COMPLETE. CSM INTACT RLE. DRAINAGE UNCHANGED ON LEFT THIGH, OP SITE IN PLACE. VSS. CALL LIGHT IN REACH.
[2023-02-06 06:18] VITALS: BP 103/58
--- NOTE | 2023-02-06 06:25 | NUR ---
pt SLEEPING, AWAKENS TO VOICE. SCHEDULED TYLENOL ADMINISTERED. pt STATES "IT'S OKAY RIGHT NOW, IT WAS PRETTY BAD THERE FOR A WHILE". URINAL EMPTIED. CSM INTACT BLE. PILLOWS ADJUSTED AND SLING IN PLACE. RLE ELEVATED ABOVE HEART. pt HAS CALL LIGHT IN REACH. ICE WATER REFILLED.
--- NOTE | 2023-02-06 07:10 | NUR ---
RECEIVED REPORT FROM JOSH ROBERTS. ASSUMING CARE OF PT. PT RESTING IN BED WITH EYES CLOSED, RESPIRATIONS EVEN AND UNLABORED. PT HAS CALL LIGHT WITHIN REACH.
--- NOTE | 2023-02-06 08:20 | NUR ---
I spoke with Dr. Brown yesterday afternoon and pt will no longer needs his wound vac. I emailed Bibi at [facility] and requested they send a label and box to pts home for pt to return his wound vac. Pt needs to take the wound vac home and return as policy per [facility].
--- NOTE | 2023-02-06 08:24 | NUR ---
PT GIVEN MORNING MEDICATION AND ASSESSMENT COMPLETED. PT HAS ABX INFUSING. RIGHT LEG ELEVATED ABOVE HEAD WITH PILLOWS AND SLING. PT RATES PAIN 5/10, PAIN MEDICATION PROVIDED. LUNG SOUNDS CLEAR, HEART STRONG, BOWEL TONES ACTIVE. PT HAS CMS INTACT IN ALL EXTREMITIES. PT DENIES FURTHER NEEDS AT THIS TIME.
[2023-02-06 08:56] VITALS: BP 114/65
--- NOTE | 2023-02-06 09:34 | NUR ---
Scheduled ABX administered. Pt states 4/10 pain to RLE, PRN motrin given. Pt denies further needs at this time, leg elevated in sling.
--- NOTE | 2023-02-06 11:15 | NUR ---
IV ABX complete. Urinal emptied. Pt denies needs at this time.
--- NOTE | 2023-02-06 13:05 | NUR ---
Pt resting in bed after lunch. Dr Brown in room to see patient. Pt denies needs at this time.
[2023-02-06 13:21] VITALS: BP 112/66
--- NOTE | 2023-02-06 14:39 | NUR ---
PT LAYING IN BED-RLE ELEVATED IN SLING. PT STRUGGLING WITH BEING HERE AND NOT AT HOME. FEELS RLE IS IMPROVING, REQUESTED PRAYER GAVE ENDOURAGEMENT.
--- NOTE | 2023-02-06 14:45 | NUR ---
Scheduled medications administered, pt reports 5/10 pain, states will let this RN know if pain increases or needs further PRN. Urinal emptied, call light in reach.
--- NOTE | 2023-02-06 17:22 | NUR ---
PT RESTED IN BED WITH LEG ELEVATED THIS SHIFT, WATCHING TV. USES URINAL, BATHROOM PRIVILEGES, BEDREST OTHERWISE, WITH LEG IN SLING ABOVE HEART. DRESSINGS CHANGED ONLY PER DR BURGOS. PT STABLE, VSS, A+O, ON RA. PROGRESSED TO PO ABX TODAY. REG DIET. VOIDING QS. PAIN MANAGED WITH MOTRIN/TYLENOL. CHRONIC BUPRENORPHINE USAGE. IV WNL. CALLS APPROPRIATELY.
[2023-02-06 18:46] VITALS: BP 99/58
--- NOTE | 2023-02-06 19:32 | NUR ---
shift report received from edohargelia lowe at bedside, pt awake and resting in bed. pt reports intermittent throbbing pain in rle, rle remains elevated above level of the heart. cms remains intact, dressing c/d/i. cap refill brisk and wnl. call light in reach.
[2023-02-06 20:05] VITALS: BP 110/62
--- NOTE | 2023-02-06 20:45 | NUR ---
DR BURGOS UPDATED ON DONOR SITE DRESSING, MODERATE AMOUNT SEROSANGUINEOUS LEAKING NOTED UNDER LEFT THIGH DRESSING. PER DR BURGOS, FARAZAY TO REMOVE DONOR SITE DRESSING AND CLEAN DRAINAGE WITH STERILE GAUZE AND PLACE NEW OPSITES X2.
--- NOTE | 2023-02-06 20:45 | NUR ---
ASSESSMENT COMPLETE, SCHEDULED MEDS GIVEN ALONG WITH PRN MOTRIN-SEE EMAR. DRESSING TO RLE C/D/I. DONOR SITE TO LEFT THIGH INTACT, MODERATE AMOUNT SEROSANGUINEOUS LEAKING NOTED UNDER OPSITE. RLE REMAINS ABOVE LEVEL OF HEART. VSS, CALL LIGHT IN REACH. NO ADDITIONAL NEEDS OR CONCERNS VERBALIZED.
--- NOTE | 2023-02-06 22:51 | NUR ---
IN pt ROOM FOR SCHEDULED TYLENOL ADMINISTRATION. pt RESTING IN BED AWAKE WATCHING SHOW ON PHONE. RATES PAIN 4/10 IN RIGHT LEG. URINAL EMPTIED. ICE WATER REFILLED. CALL LIGHT IN REACH.
--- NOTE | 2023-02-07 01:15 | NUR ---
ROUNDED ON pt, pt AWAKE AND RESTING IN BED. pt REPORTS SOME PAIN IN RLE, DRESSING REMAINS UNCHANGED. CAP REFILL WNL AND NO SHADOWING NOTED TO DRESSING. RLE REMAINS ELEVATED IN BED, ABOVE THE LEVEL OF THE HEART. CALL LIGHT IN REACH.
--- NOTE | 2023-02-07 03:30 | NUR ---
pt RESTING IN BED, ON BACK. RLE REMAINS ELEVATED IN BED WITH USE OF SLING, ABOVE LEVEL OF HEART. NO DISTRESS NOTED, EYES CLOSED, ON RA. RR EVEN AND UNLABORED. CALL LIGHT IN REACH.
--- NOTE | 2023-02-07 04:58 | NUR ---
pt CONTINUES TO REST IN BED, RLE REMAINS ELEVATED IN SLING AND ABOVE THE pt's HEART. ON RA, RR EVEN AND UNLABORED. NO DISTRESS NOTED. CALL LIGHT REMAINS IN REACH.
[2023-02-07 06:10] VITALS: BP 109/65
--- NOTE | 2023-02-07 06:23 | NUR ---
ASSESSMENT COMPLETE, NO ACUTE CHANGES. pt AWOKE TO VOICE, REPORTS 5/10 PAIN TO RLE, REMAISN ELEVATED ON SLING WITH PILLOWS UNDERNEATH FOR SUPPORT. pt DENIES NAUSEA. CMS INTACT, pt DENIES NUMBNESS AND TINGLING TO BLE. NO ADDITIONAL NEEDS, CALL LIGHT IN REACH. SCHEDULED TYLENOL ALSO GIVEN DIRECTED. CALL LIGHT IN REACH.
--- NOTE | 2023-02-07 06:30 | NUR ---
dressing change to left upper thigh donor site with help from conveyor line battery charger bailey. donor site cleaned with wound cleanser and sterile gauze, chloraprep to surrounding skin for infection control- but avoiding actual skin graft site. opsites x2 in place per md orders, sterile technique mantained with new dressing. pt tolerated well.
--- NOTE | 2023-02-07 07:30 | NUR ---
Report received from Sayra ROBERTS. Pt resting in bed, awakens to voice, leigio RN and Sayra ROBERTS visualize dressings C/D/I and WNL. Pt denies needs at this time. Call light in reach.
[2023-02-07 09:17] VITALS: BP 106/62
--- NOTE | 2023-02-07 09:29 | NUR ---
Scheduled medications adminstered and assessment complete. Pt resting in bed, states was able to use BR for BM this am. VSS. I/Os complete. Skin assessed- dressings C/D/I. 01/03 pain to RLE, states dressing feels "tight", will update Dr Brown.
--- NOTE | 2023-02-07 10:23 | OR ---
[facility] [address], [place] [address] Signed DATE OF OPERATION: 02/05/2023 SURGEON: Soni Burgos MD PREOPERATIVE DIAGNOSES: 1. Chronic right lower extremity venous stasis disease and recurrent cellulitis. 2. Open wounds of right anterolateral ankle area, right medial ankle x2. 3. Buprenorphine maintenance therapy. POSTOPERATIVE DIAGNOSES: 1. Chronic right lower extremity venous stasis disease and recurrent cellulitis. 2. Open wounds of right anterolateral ankle area, right medial ankle x2. 3. Buprenorphine maintenance therapy. PROCEDURES: 1. Debridement by curettage of right foot and ankle wounds x3 in preparation for skin grafting. 2. Dingle of left anterolateral thigh skin for skin grafting (0.15 inches). 3. Application of split-thickness skin grafts x3, 6 x 2.5 cm, 6 x 1.8 cm, and 3 x 1.8 cm (total skin grafting 23.4 sq cm). ANESTHESIA: General LMA, Sandeep Mendoza CRNA. INDICATIONS: Details of his protracted wound management can be found in the history and physical. He has chronic venous stasis disease, recurrent cellulitis and three wounds on the right lower extremity, one over the dorsum of the ankle anterolateral aspect, two on the medial ankle, one cephalad to the malleolus, the other inferior closer to the foot. He has been with dedicated leg elevation over the next several days, and cellulitis that was present has resolved. He has good granulation at the base of the wounds from prior wound VAC therapy and local wound care recently. He is now to undergo split-thickness skin grafting to the three wounds in hopes of definitive closure. The risk of bleeding, infection, and of course failure of the graft were reviewed in detail. He understands and wished to proceed. FINDINGS: The wounds were granulating, but debridement was undertaken with curettage using a banjo curette. This allowed for freshening of the wounds to optimize take of the split-thickness grafts. Grafts were harvested from the left anterolateral thigh Electronically Signed By: SONI BURGOS MD 02/07/23 1023 PATIENT NAME: NORMA BECERRA OPERATIVE REPORT DATE OF : 83 REPORT #: [id number] PHYSICIAN: SONI BURGOS MD PCP: CHEYENNE WHARTON PA-C REPORT IS CONFIDENTIAL AND NOT TO BE RELEASED WITHOUT AUTHORIZATION [facility] [address] [place] [id number] Signed (contralateral extremity) and were 0.15 inches in depth and meshed to a 1 to 1.5 size. Complete coverage of all the wounds was undertaken. In aggregate the covered area is 31.2 sq cm. DESCRIPTION OF PROCEDURE: LMA type anesthetic. Preoperative antibiotics had been given. Sequential compression device stocking on the left lower extremity was used. The gauze dressing was removed over the right foot and the right lower extremity prepared with a chlorhexidine solution as was the left anterolateral thigh, which was draped separately. Using banjo curettage on the right anterolateral ankle wound fibrinous exudate was removed. This area was 6 x 2.5 cm (15.0 sq cm). Two other wounds were noted in the region of the ankle on the medial aspect, one 6 x 1.8 cm (10.8 sq cm) and another 3 x 1.8 cm, which was 5.4 sq cm. In aggregate the grafted area is 31.2 sq cm. Curettage of all three of the wounds was undertaken to the point of bleeding granulation tissue. Epinephrine-soaked saline was applied to the areas. Attention was turned to the left anteromedial thigh. This area was cleansed and mineral oil applied. Using a Christina dermatome 2 inches in width skin was harvested at a 0.15 inch thickness. The harvest site was secured with epinephrine-soaked gauze. The skin was placed into the meshing device per biomass plant technician's instructions in 1:1.5 ratio. These portions of skin were then applied to the three wounds. The dorsum 6 x 2.5 cm, the medial largest 6 x 1.8 cm and the lowest 3 x 1.8 cm. All were secured with clips. Each wound was covered with an Adaptic nonadherent dressing as well as fluff gauze followed by Kerlix roll, an Vinny wrap and ultimately a Coban dressing carefully applied. Attention to the left anterolateral thigh after removal of the epinephrine-soaked saline showing good hemostasis. This area was dried and two large OpSite applied. The patient was ultimately transferred to a regular stretcher from the operating room, taken to the recovery room in good condition. The leg was elevated higher than the heart on the right side. BLOOD LOSS: Minimal. COMPLICATIONS: None. Soni Burgos MD Electronically Signed By: SONI BURGOS MD 02/07/23 1023 PATIENT NAME: NORMA BECERRA OPERATIVE REPORT DATE OF : 83 REPORT #: [id number] PHYSICIAN: SONI BURGOS MD PCP: CHEYENNE WHARTON PA-C REPORT IS CONFIDENTIAL AND NOT TO BE RELEASED WITHOUT AUTHORIZATION [facility] [address] [place] [address] Signed /MODL /[id number] cc: VERONICA Nicole MD Cynthia Rasch, MD Copies: SUZANNA HUIZAR MD, CYNTHIA MD ~ Electronically Signed By: SONI BURGOS MD 02/07/23 1023 PATIENT NAME: NORMA BECERRA OPERATIVE REPORT DATE OF : 83 REPORT #: [id number] PHYSICIAN: SONI BURGOS MD PCP: CHEYENNE WHARTON PA-C REPORT IS CONFIDENTIAL AND NOT TO BE RELEASED WITHOUT AUTHORIZATION
--- NOTE | 2023-02-07 11:45 | NUR ---
SPOKE TO PATIENT ABOUT THE DISCHARGE PLAN. PATIENT IS FEELING BORED AND CAN NOT WAIT UNTIL HE IS DISCHARGE. VINER OPERATOR WILL CONTINUE TO MONITOR CLOSELY.
[2023-02-07 13:32] VITALS: BP 108/63
--- NOTE | 2023-02-07 14:29 | NUR ---
PT LAYING IN BED, RLE ELEVATED IN SLING. PT PLAYING GAME ON HIS PHONE. PT FRUSTRATED, BUT UNDERSTANDING. GAVE ENCOURAGMENT, WILL FOLLOW
[2023-02-07 18:31] VITALS: BP 114/74
--- NOTE | 2023-02-07 19:24 | NUR ---
SHIFT REPORT RECEIVED FROM ELNEA RN, PT AWAKE AND ALERT, RIGHT LEG ELEVATED ABOVE THE HEART, PT WITHOUT REQUESTS AT THIS TIME.
[2023-02-07 21:50] VITALS: BP 120/60
--- NOTE | 2023-02-07 21:50 | NUR ---
PT AWAKE AND ALERT, VS STABLE, AFEBRILE, RT MEDS GIVEN, ASSESSMENT COMPLETED, RIGHT LEG DRESSING DRY AND INTACT, RIGHT LEG ELEVATED ON PILLOWS AND IN SLING, CMS INTACT, PEDEL PULSES PALPABLE. FRESH WATER GIVEN.
--- NOTE | 2023-02-07 22:45 | NUR ---
PT RESTING QUIETLY, AWAKENS EASILY, ROUTINE TYLENOL GIVEN PER ORDER, PT WITHOUT OTHER REQUESTS.
--- NOTE | 2023-02-08 00:01 | NUR ---
PT UP IN BR, DENIES ASSISTANCE AT THIS TIME.
--- NOTE | 2023-02-08 00:15 | NUR ---
FAMILY INTO VISIT PATIENT, PT WITHOUT REQUESTS AT THIS TIME.
--- NOTE | 2023-02-08 02:05 | NUR ---
PT AWAKE, STATES HE IS OK WITH NO COMPLAINTS, RIGHT LEG REMAINS ELEVATED IN SLING AND ELEVATED ON PILLOWS.
--- NOTE | 2023-02-08 04:00 | NUR ---
PT ASLEEP, WITHOUT COMPLAINTS.
[2023-02-08 06:20] VITALS: BP 116/67
--- NOTE | 2023-02-08 06:20 | NUR ---
PT RESTING IN BED, ALERT, VS STABLE, RT TYLENOL GIVEN PER ORDER FOR PAIN 4/10 IN RIGHT LEG, CMS TO RIGHT LEG INTACT, LEG REMAINS ELEVATED ON PILLOWS AND IN A SLING, PT VOIDING WELL PER URINAL, FRESH WATER GIVEN.
--- NOTE | 2023-02-08 07:08 | NUR ---
Report from Semaj Valentine RN. Patient resting in bed with eyes closed, respirations even and unlabored. Leg elevated in sling. Allowed to rest at this time. Call light in reach.
[2023-02-08 10:00] VITALS: BP 117/71
--- NOTE | 2023-02-08 11:40 | NUR ---
Spoke with Dany. He states he is tired of being in the hospital. He is adjusting his leg in the elevation sling. He denies needs.
[2023-02-08 13:31] VITALS: BP 96/64
[2023-02-08 17:59] VITALS: BP 115/60
--- NOTE | 2023-02-08 18:15 | NUR ---
DR. BURGOS IN ROOM TO ASSESS PATIENT GRAFT SITES. DRESSING REMOVED. SEE DR. BURGOS NOTES AND ORDERS FOR SURGERY TOMORROW. PATIENT VERBALIZES DESIRE TO GO HOME AFTER SURGERY WHILE SPEAKING WITH DR. BURGOS. DR. BURGOS INFORMS PATIENT IF HE DOES DC HOME, HE WILL HAVE TO REMAIN AT HOME WITH LEG ELEVATED ABOVE HEART, SIMILAR TO HIS HOSPITAL TREATMENT PLAN, AND NO WORK WHILE GRAFTS ARE HEALING. PATIENT STATES HE PLANS ON FOLLOWING TREATMENT PLAN. DRY DRESSING REAPPLIED TO RIGHT LEG BY DR. BURGOS. LEFT LEG DONOR SITE REMAINS COVERED WITH OPSITE. SEROSANGUIOUS DRAINAGE NOTED.
[2023-02-08 21:23] VITALS: BP 109/66
[2023-02-09] VITALS (7 sets, daily range): BP systolic 90–123; BP diastolic 51–69
--- NOTE | 2023-02-09 06:34 | NUR ---
VSS, URINAL CURRENTLY EMPTY. pt DENIES NEED TO VOID. SCHEDULED TYLNEOL HELD pt IS NPO. NO CONCERNS OR NEEDS VERBALIZED WHEN ASKED. CALL LIGHT IN REACH.
--- NOTE | 2023-02-09 07:20 | NUR ---
BEDSIDE HANDOFF REPORT RECEIVED FROM ROOFING MACHINE OPERATOR RN. PT SLEEPING, RIGHT LEG ELEVATED IN SLING.
--- NOTE | 2023-02-09 09:59 | NUR ---
VITAL/I&O'S TAKEN/DOCUMENTED. PT PERFORMING PRE-OP WIPEDOWN (REFUSED ASSISTANCE). NEW GOWN/SOCKS GIVEN. NO OTHER REQUESTS AT THIS TIME, CALL LIGHT IN REACH.
--- NOTE | 2023-02-09 10:10 | NUR ---
PT RESTING IN BED. PT ON ROOM AIR, LUNG SOUNDS CLEAR, DENIES SOB. PT BP 104/58, LISINOPRIL HELD PER PARAMETER. PT RATING PAIN 4/10 TO RIGHT LOWER LEG, SCHEDULED BUPRENORPHINE GIVEN. RIGHT LEG ELEVATED ON PILLOWS AND SLING, PULSES PALPABLE, DENIES NUMBNESS. LEFT THIGH DONOR SITE WITH OPSITE INTACT, SEROSANGUINOUS DRAINAGE UNDER DRESSING. IV ABX STARTED PER ORDER TO RIGHT HAND IV. PT NPO FOR SURGERY, DENIES NAUSEA, BOWEL TONES ACTIVE. DISCUSSED PLAN OF CARE FOR THE DAY, PT DENIES OTHER NEEDS AT THIS TIME.
--- NOTE | 2023-02-09 10:31 | NUR ---
PT TO OR WITH RN COLTEN.
--- NOTE | 2023-02-09 11:47 | NUR ---
THE PATIENT IS THE OR AT THIS TIME. PATIENT'S DISCHARGE PLAN IS TO RETURN HOME WHEN MEDICALLY STABLE.
--- NOTE | 2023-02-09 12:02 | NUR ---
M/S STAFF INFORMED ME PT HAS BEEN TAKEN TO OR FOR SURGERY. WILL FOLLOW
--- NOTE | 2023-02-09 12:53 | NUR ---
PT BACK TO RM FROM SURGERY. REPORT RECEIVED FROM CLAUDINE ROBERTS, ALL QUESTIONS ANSWERED. PT REPORTS PAIN 1/10, RLE ELEVATED ON PILLOWS ABOVE LEVEL OF HEART, BENJAMIN WRAP TO RLE CDI, CMS INTACT TO RLE. VSS. PT DENIES FURTHER NEEDS AT THIS TIME. CALL LIGHT IN REACH.
--- NOTE | 2023-02-09 13:25 | NUR ---
02/09/23 1325 Sheets,Lacy 1135 PT ARRIVED TO PACU ON 10L VIA MASK AND PT ASLEEP. 1141 PT WAKES AND STARTS GRIMACING. O2 REMOVED. PT REPORTS 5/10 PAIN IN RIGHT FOOT, PT DENIES PAIN IN LEFT THIGH. [id number] PAIN MEDICATION GIVEN PER EMAR, PT CONTINUES TO REPORT 5/10 PAIN. 1215 ASSISTANT WOMEN'S BASKETBALL COACH CALLED AND UPDATED, NEW ORDERS RECEIVED. 1225 PT REPORTS "BENJAMIN FEELS REALLY TIGHT." PT TOES ARE STARTING TO LOOK CYANOTIC AND RN ACCESSES BENJAMIN WRAP. 1230 RIGHT LEG BENJAMIN WRAP UNWRAPPED AND REWRAPPED SLGIHTLY LOOSER THEN BEFORE, NORMAL COLOR STARTS TO RETURN TO PT TOES. PT REPORTS PAIN HAS DECREASED TO 1/10 PAIN. PLAN OF CARE DISCUSSED. 1250 PT RETURNED TO ROOM AND REPORT GIVEN. PT RIGHT LEG ELEVATED ON PILLOWS AND PT PHONE GIVEN TO HIM PER REQUEST. BED PLUGGED IN AND CALL LIGHT WITHIN REACH. PT REPORTS 1/10 PAIN AND NO NAUSEA.
--- NOTE | 2023-02-09 14:09 | NUR ---
POST OP VITALS STABLE, PT RLE REMAINS ELEVATED ABOVE HEART. PT STATES PAIN IS TOLERABLE AT THIS TIME. PHYSICAL LABORATORY ASSISTANT INTACT TO RLE. PT DENIES FURTHER NEEDS AT THIS TIME. CALL LIGHT IN REACH.
[2023-02-09] MEDS ORDERED: LEVOFLOXACIN750 MG PO (15:07)
[2023-02-09] MEDS ORDERED: METRONIDAZOLE250 MG PO (15:07)
[2023-02-09] MEDS ORDERED: ACETAMINOPHEN500 MG PO (15:08)
--- NOTE | 2023-02-09 15:15 | NUR ---
VSS. Pt sba to bathroom to void and have bm. discussed discharge with pt. denies nausea, tolerating regular diet. Pain 09/05, states pain is tolerable.
--- NOTE | 2023-02-09 15:39 | NUR ---
DISCHARGE INSTRUCTIONS COMPLETED WITH PT. IV TO RIGHT HAND REMOVED. MEDICATIONS REVIEWED. PT VOIDED AND HAD BM. VSS. PHARMACIST AT BEDSIDE TO REVIEW MEDICATIONS.
--- NOTE | 2023-02-11 14:55 | OR ---
[facility] [address] [place], [place] [address] Signed DATE OF OPERATION: 02/09/2023 SURGEON: Soni Burgos MD PREOPERATIVE DIAGNOSES: 1. Open wound over the dorsum of right foot. 2. Chronic venous stasis disease and recurrent cellulitis. POSTOPERATIVE DIAGNOSES: 1. Open wound over the dorsum of right foot. 2. Chronic venous stasis disease and recurrent cellulitis. 3. Defect size 21 cm2 (7 x 3 cm). PROCEDURES: 1. Preparation of right ankle for split-thickness skin grafting (debridement). 2. Browns of skin, left anterolateral thigh for split-thickness skin grafting. 3. Split thickness skin grafting to right anterior ankle, 7 cm x 3 cm (21 cm2). ANESTHESIA: General LMA, Reji Hopkins CRNA. INDICATION: This 38-year-old white man has had chronic recurrent cellulitis of his lower extremity and several months ago suffered extreme cellulitis with necrotic areas requiring debridement. Over the dorsum of his ankle, has been an open wound and several other areas in the medial aspect of the right ankle as well. He has undergone wound VAC therapy over time. Granulation of the wounds of the foot has developed and the wounds have decreased in size overall. He underwent split-thickness skin grafting on February 05, four days ago. The wound was evaluated yesterday and found to have a total loss of the graft in the dorsum of the foot. On that basis, I have recommend repeat grafting. He is maintaining good leg elevation, no excessive edema compared to baseline and understands the risk of bleeding, infection, graft failure as regards his current situation. Understanding these risks, he agrees to undergo a repeat skin graft in the dorsum of his right foot. FINDINGS: The base of the wound was granulating quite well. The previous neelam were removed. There were two small areas of grafting, were marginal, though better than the dorsum. The grafting was undertaken with the donor site in the left thigh to the right dorsum of the ankle. The graft size was 7 x 3 cm (21 square cm). Electronically Signed By: SONI BURGOS MD 02/11/23 1455 PATIENT NAME: NORMA BECERRA OPERATIVE REPORT DATE OF : 83 REPORT #: [id number] PHYSICIAN: SONI BURGOS MD PCP: CHEYENNE WHARTON PA-C REPORT IS CONFIDENTIAL AND NOT TO BE RELEASED WITHOUT AUTHORIZATION [facility] [address] [place], [place] [address] Signed DESCRIPTION OF PROCEDURE: The patient was brought to the operating room, given a general endotracheal anesthetic. Preoperative antibiotic of Levaquin IV and Flagyl IV had been given preoperatively. The OpSite on the left thigh where donor site from before was removed and subsequently cleansed with chlorhexidine solution. The right leg had a Kerlix wrap, which was removed. Cleansing of the leg with chlorhexidine solution was undertaken on the right side. Sterile draping was undertaken in both areas. The previous closure clips over the right dorsum wound were removed. Using a 1 inch wide template, the skin was harvested from the left anterolateral thigh after application of mineral oil. A generous specimen was removed in place through meshing device 1:1.5 ratio. The graft is optimally sized for the recipient bed on the left ankle. Left ankle has undergone debridement with a gauze and good granulation was noted. The skin graft was applied and secured with a clipping device. The left anterolateral thigh donor site was cleansed with saline and dried and an OpSite dressing applied. Over the recipient site in the right ankle, he has rather bacitracin impregnated Adaptic was applied to the site, wrapped with fluff gauze and a Kerlix, and ultimately two long Vinny wraps snugly applied. The patient was ultimately extubated and transferred to recovery room after elevating the leg. BLOOD LOSS: Minimal. COMPLICATIONS: None. MD ÁNGEL Gale/MODL /[id number] cc: TETO Franco Electronically Signed By: SONI BURGOS MD 02/11/23 1455 PATIENT NAME: NORMA BECERRA OPERATIVE REPORT DATE OF : 83 REPORT #: [id number] PHYSICIAN: SONI BURGOS MD PCP: CHEYENNE WHARTON PA-C REPORT IS CONFIDENTIAL AND NOT TO BE RELEASED WITHOUT AUTHORIZATION [address] [place] [address] Signed Copies: ~ Electronically Signed By: SONI BURGOS MD 02/11/23 1455 PATIENT NAME: NORMA BECERRA JACKIE OPERATIVE REPORT DATE OF : 83 REPORT #: [id number] PHYSICIAN: SONI BURGOS MD PCP: CHEYENNE WHARTON PA-C REPORT IS CONFIDENTIAL AND NOT TO BE RELEASED WITHOUT AUTHORIZATION
--- NOTE | 2023-02-13 09:53 | DS ---
[facility] [address] [facility] [place], [place] [address] Signed ADMISSION DATE: 02/01/2023 DISCHARGE DATE: 02/09/2023 REASON FOR ADMISSION: This 38-year-old white man was admitted to the hospitalist service many months ago for recurrent cellulitis of right lower extremity and ultimately suffered necrotic changes requiring advanced debridement. He ultimately had wound VAC dressing changes and has been progressing well anticipating skin grafting. He was seen on an episodic basis through the wound care clinic following the granulation of the various wounds of his lower extremity. More recently, he has increasing swelling and erythema and probably marginal compliance with leg elevation recommendations. He was seen in the wound care clinic today where cellulitic changes have worsened, edema has worsened and all the wounds though granulating, have surrounding edema of the soft tissue otherwise. The removal of his wound VAC dressing on the day of admission showed subcutaneous tissue teaming with maribell. On that basis, he is admitted for further evaluation to include wound care, leg elevation, antibiotic therapy, debridement as necessary and ultimately skin grafting. PERTINENT PHYSICAL EXAMINATION: GENERAL: Showed a large white man who is in no distress. He has no systemic toxicity. CHEST: Clear. HEART: Regular without murmur. ABDOMEN: Obese, but soft. EXTREMITIES: Examination of the lower extremities showed bilateral lower extremity chronic venous stasis disease, right worse than left. Significant edema and erythema was quite notable. Over the dorsum of the ankle there was 5 x 4 x 1 cm wound that is granulating, though it does have a fibrinopurulent exudate. Smaller lesions on the medial ankle that are linear in shape, no longer requiring wound VAC dressing changes appeared to be granulating well. HOSPITAL COURSE: He was given fluid resuscitation, IV antibiotics and leg elevation. Improvement of his edema was notable within the 1st day or so. Leg elevation was undertaken in the direct and aggressive way to decrease leg edema anticipating grafting. Quite marked improvement of his leg was noted with leg elevation. On February 05, 2023, he underwent operation, which included harvest of skin in the left anterolateral thigh for skin grafting with application to three separate wounds of the right lower extremity including the dorsum of the foot. The operation went without problem. The graft was Electronically Signed By: SONI BURGOS MD 02/11/23 1455 PATIENT NAME: NORMA BECERRA DISCHARGE SUMMARY DATE OF : 83 REPORT #: [id number] PHYSICIAN: SONI BURGOS MD PCP: CHEYENNE WHARTON PA-C REPORT IS CONFIDENTIAL AND NOT TO BE RELEASED WITHOUT AUTHORIZATION [facility] [address] [place], [place] [address] Signed meshed in a 1 to 1.5 ratio and was 0.15 inches thickness. Continued leg elevation and antibiotic administration including Levaquin and Flagyl was maintained. On February 08, 2023, examination was undertaken upon removal of the dressing, which showed 0% take of the graft in the dorsum of the ankle in variable degrees, no more than 50% elsewhere. On that basis, recommendation was made for repeat grafting given the circumstances in total. On February 09, 2023, he underwent repeat graft to the dorsum of the right ankle. The defect size is 7 cm x 3 cm, therefore 21 sq cm. The donor site was once again the left anterolateral thigh. He was maintained with a tight compression wrap of Vinny wrap type postoperatively, but was found to have excessive tightness and therefore it was removed and reapplied by nursing staff with care taken to the operative site. The patient strongly wishes to go home and contends that he will keep his leg elevated higher than heart until I see him back in the clinic this coming Sunday. DISCHARGE MEDICATIONS: Will include: 1. Levaquin 750 mg p.o. daily, #7. 2. Flagyl 250 mg p.o. t.i.d., #21. 3. Tylenol plain 500 mg two tablets p.o. q.6 hours as needed for pain, #60. 4. Buprenorphine mg t.i.d. 5. Lisinopril/hydrochlorothiazide 06/07.5 one tablet p.o. daily. 6. Ibuprofen 600 mg p.o. q.6 hours as needed for pain. 7. Sennosides two tablets p.o. daily for constipation. 8. Doxycycline 100 mg b.i.d. to continue until gone. FOLLOW-UP PLANS: I will see him in the wound care clinic in the coming week, Sunday. He is strictly admonished to keep his right leg elevated higher than his heart as much as humanly possible so as to allow for graft incorporation. He will call if there are any problems. DISCHARGE DIAGNOSES: 1. Recurrent cellulitic right lower extremity with open wounds and maggots .. 2. Status post incision and drainage and split-thickness skin grafting x3, right lower extremity. 3. Failure dorsum of foot skin graft, status post skin grafting dorsum of the ankle 7 cm x 3 cm (21 square cm). Electronically Signed By: SONI BURGOS MD 02/11/23 6499 PATIENT NAME: MARIAMNORMA VASQUEZ DISCHARGE SUMMARY DATE OF : [birth year] REPORT #: [id number] PHYSICIAN: SONI BURGOS MD PCP: CHEYENNE WHARTON PA-C REPORT IS CONFIDENTIAL AND NOT TO BE RELEASED WITHOUT AUTHORIZATION [facility] [address] [place] [id number] Signed He is discharged to home mindful that he will need to keep his leg elevated at all times greater than the height of his heart except when going to the bathroom. He understands how important this is for skin graft take to occur. FOLLOWUP PLANS: He will be seen in the Wound Care Clinic on Sunday this coming week for dressing change as needed. DISCHARGE MEDICATIONS: 1. Levaquin 750 mg p.o. daily. 2. Metronidazole mg p.o. t.i.d. 3. Tylenol plain 1000 mg p.o. daily. 4. Resumption of medicine buprenorphine/naloxone 8, 2 mg tablets p.o. t.i.d. 5. Lisinopril/hydrochlorothiazide 10/325 p.o. daily. 6. Ibuprofen 600 mg two tablets p.o. q.6 hours as needed for pain. 7. Sennosides two tablets p.o. b.i.d. for constipation. 8. Doxycycline 100 mg p.o. daily. DISCHARGE DIAGNOSES: 1. right lower extremity cellulitis with open wounds. 2. Status post leg elevation. Ultimately debridement and application of skin grafting x3 to right lower extremity. 3. Failure of the skin graft over the dorsum of ankle, status post additional grafting on February 09, 2023. 4. Morbid obesity. 5. Chronic venous stasis disease with recurrent cellulitis, right worse than left. MD ÁNGEL Gale/ELVINL /[id number] cc: Dr. Electronically Signed By: SONI BURGOS MD 02/11/23 1455 PATIENT NAME: NORMA BECERRA DISCHARGE SUMMARY DATE OF : [birth year] REPORT #: [id number] PHYSICIAN: SONI BURGOS MD PCP: CHEYENNE WHARTON PA-C REPORT IS CONFIDENTIAL AND NOT TO BE RELEASED WITHOUT AUTHORIZATION [address] [place] [address] Signed Copies: ~ Electronically Signed By: SONI BURGOS MD 02/11/23 1455 PATIENT NAME: NORMA BECERRA DISCHARGE SUMMARY DATE OF : [birth year] REPORT #: [id number] PHYSICIAN: SONI BURGOS MD PCP: CHEYENNE WHARTON PA-C REPORT IS CONFIDENTIAL AND NOT TO BE RELEASED WITHOUT AUTHORIZATION
== END 2023-02-09 15:50 | disposition home or self-care (01) | DRG 575 ==
LOC: OPV-DS 10:02 → MS 10:45
PROVIDERS: ADMIT Surgery; ATTEND Surgery
PROC: 0HBKXZZ Excision of Right Lower Leg Skin, External Approach (ICD-10-PCS; 2023-02-05)
PROC: 0HRMX74 Replacement of Right Foot Skin with Autologous Tissue Substitute, Partial Thickness, External Approach (ICD-10-PCS; principal; 2023-02-05 16:00)
PROC: 0HRMX74 Replacement of Right Foot Skin with Autologous Tissue Substitute, Partial Thickness, External Approach (ICD-10-PCS; 2023-02-09)
PROC: 0HBJXZZ Excision of Left Upper Leg Skin, External Approach (ICD-10-PCS; 2023-02-09)
DX: L03.115 Cellulitis of right lower limb (principal); I87.8 Other specified disorders of veins; E66.9 Obesity, unspecified; Z88.0 Allergy status to penicillin; Z88.1 Allergy status to other antibiotic agents; Z88.8 Allergy status to other drugs, medicaments and biological substances; Z79.899 Other long term (current) drug therapy
CPT/HCPCS: 00400; 36415; 80048; 80053; 85025; 97606; A9270; G0463; J0171; J1170; J1885; J1956; J2001; J2405; J2704; J3010; J7121

== ENCOUNTER 2024-02-10 21:52 | Emergency (ER) | payer OTHER ==
[~2024-02-10] VITALS: Ht 180.3 cm; Wt 107.0 kg
[~2024-02-10 21:52] MED LIST changes: +DOXYCYCLINE MO100 MG PO; +ESCITALOPRAM OX10 MG PO; +LEVOFLOXACIN750 MG PO; +METRONIDAZOLE250 MG PO
[2024-02-10 22:31] LABS: BASOPHILS 0.8 % (0-2); EOSINOPHILS 2.6 % (0-6); HEMATOCRIT 45.2 % (35.0-50.0); HEMOGLOBIN 14.6 g/dL (12.0-18.0); LYMPHOCYTES 22.3 % (24-44); MCH 27.1 (27-36); MCHC 32.2 g/dl (30-36); MONOCYTES 6.7 % (0-12); NEUTROPHILS 67.6 % (39-80); PLATELET COUNT 461 K/uL (140-440); RBC 5.37 M/ul (4.3-5.7); RDW 16.2 (10.5-15.0)
[2024-02-10] MEDS ORDERED: DEPAKOTE125 MG PO (22:36)
[2024-02-10] MEDS ORDERED: ZYPREXA5 MG PO (22:36)
[2024-02-10 22:50] LABS: AMPHETAMINES, URINE POSITIVE (NEGATIVE); BARBITURATES, URINE NEGATIVE (NEGATIVE); BENZODIAZEPINE, URINE NEGATIVE (NEGATIVE); BUPRENORPHINE, URINE NEGATIVE (NEGATIVE); CANNABINOID, URINE POSITIVE (NEGATIVE); COCAINE, URINE NEGATIVE (NEGATIVE); ECSTASY, URINE POSITIVE (NEGATIVE); FENTANYL, URINE NEGATIVE (NEGATIVE); METHADONE, URINE NEGATIVE (NEGATIVE); OPIATES, URINE NEGATIVE (NEGATIVE); OXYCODONE, URINE NEGATIVE (NEGATIVE); PHENCYCLIDINE, URINE NEGATIVE (NEGATIVE)
[2024-02-10 22:54] LABS: ACETAMINOPHEN 0 ug/mL (10-30); ALBUMIN 3.4 g/dL (3.4-5.0); ALBUMIN/GLOBULIN RATIO 0.79 (1.1-2.4); ALCOHOL, MEDICAL <3 ng/dL (<3); ALKALINE PHOSPHATASE 77 U/L (46-116); ALT (SGPT) 22 U/L (14-59); ANION GAP 12.4 (7-21); AST (SGOT) 14 U/L (15-37); BILIRUBIN, TOTAL 0.5 ng/dL (0.2-1.0); CALCIUM 8.8 mg/dL (8.5-10.1); CARBON DIOXIDE 30 mmol/L (21-32); CHLORIDE 100 mmol/L (98-107); CREATININE, SERUM 0.93 mg/dL (0.70-1.30); GLOMERULAR FILTRATION RATE,EST 106 mL/min (>60); POTASSIUM 4.4 mmol/L (3.5-5.1); PROTEIN, TOTAL 7.7 g/dL (6.4-8.2); SALICYLATE 1.2 mg/dL (2.8-20.0); TSH, 3RD GENERATION 0.372 uIU/mL (0.358-3.740); UREA NITROGEN 16 mg/dL (7-18)
[2024-02-11 00:41] LABS: BILIRUBIN, URINE NEGATIVE (negative); BLOOD/HGB, URINE TRACE-I (Negative); KETONE, URINE NEGATIVE (Negative); LEUK ESTERASE, URINE NEGATIVE (negative); NITRITE, URINE NEGATIVE (negative)
[2024-02-11 00:43] LABS: BACTERIA, URINE RARE /hpf (negative); CASTS, URINE NONE SEEN \\lpf; CRYSTALS, URINE NONE SEEN (0-1+)
[2024-02-11 00:44] LABS: COLLECTION TYPE, URINE CLEAN CATCH; REFLEX CULTURE, URINE No (No)
[2024-02-11 12:16] VITALS: BP 138/76
== END 2024-02-11 12:21 | disposition home or self-care (01) ==
LOC: ED 21:52
PROVIDERS: Internal Medicine
DX: F15.90 Other stimulant use, unspecified, uncomplicated (principal); R45.851 Suicidal ideations; Z87.891 Personal history of nicotine dependence; Z88.0 Allergy status to penicillin; Z88.8 Allergy status to other drugs, medicaments and biological substances; Z88.1 Allergy status to other antibiotic agents; Z79.899 Other long term (current) drug therapy
CPT/HCPCS: 36415; 80053; 80307; 81001; 84443; 85025; 99285; G0480

== ENCOUNTER 2024-02-13 22:59 | Emergency (ER) | payer OTHER ==
[~2024-02-13] VITALS: Ht 180.3 cm; Wt 109.3 kg
[~2024-02-13 22:59] MED LIST changes: +DEPAKOTE125 MG PO; +ZYPREXA5 MG PO
[2024-02-13] MEDS ORDERED: DOXYCYCLINE HYCLATE 100 MG CAP PO ONE (23:30)
[2024-02-13] MEDS ORDERED: DOXYCYCLINE HY100 MG PO (23:35)
[2024-02-13 23:45] VITALS: BP 126/89
== END 2024-02-13 23:45 | disposition home or self-care (01) ==
LOC: ED 22:59
DX: L02.414 Cutaneous abscess of left upper limb (principal); Z87.891 Personal history of nicotine dependence; Z88.0 Allergy status to penicillin; Z88.1 Allergy status to other antibiotic agents; Z88.8 Allergy status to other drugs, medicaments and biological substances; Z79.899 Other long term (current) drug therapy

== ENCOUNTER 2024-08-15 15:06 | Emergency (ER) | payer OTHER ==
[~2024-08-15] VITALS: Ht 180.3 cm; Wt 88.0 kg
[2024-08-15] MEDS ORDERED: diphenhydrAMINE HCL 50 MG/ML VIAL IM ONE (15:15)
[2024-08-15] MEDS ORDERED: LORazepam 2 MG/ML VIAL IM ONE (15:15)
[2024-08-15] MEDS ORDERED: HALOPERIDOL LACTATE 5 MG/ML VIAL IM ONE (15:15)
[2024-08-15 15:35] LABS: BILIRUBIN, URINE NEGATIVE (negative); BLOOD/HGB, URINE TRACE-I (Negative); KETONE, URINE NEGATIVE (Negative); LEUK ESTERASE, URINE NEGATIVE (negative); NITRITE, URINE NEGATIVE (negative)
[2024-08-15 15:36] LABS: EPITHELIAL CELLS, URINE SQUAMOUS 1+ /lpf (0-1+)
[2024-08-15 15:37] LABS: BACTERIA, URINE NONE SEEN /hpf (negative); CASTS, URINE NONE SEEN \\lpf; COLLECTION TYPE, URINE CLEAN CATCH; CRYSTALS, URINE NONE SEEN (0-1+); REFLEX CULTURE, URINE No (No)
[2024-08-15 15:38] LABS: BASOPHILS 1.1 % (0-2); EOSINOPHILS 3.9 % (0-6); HEMATOCRIT 42.2 % (35.0-50.0); HEMOGLOBIN 14.2 g/dL (12.0-18.0); LYMPHOCYTES 21.6 % (24-44); MCH 27.9 (27-36); MCHC 33.7 g/dl (30-36); MCV 82.9 fl (81-99); MONOCYTES 6.9 % (0-12); NEUTROPHILS 66.5 % (39-80); PLATELET COUNT 315 K/uL (140-440); RBC 5.09 M/ul (4.3-5.7)
[2024-08-15 16:04] LABS: ACETAMINOPHEN 0 ug/mL (10-30); ALBUMIN 3.5 g/dL (3.4-5.0); ALBUMIN/GLOBULIN RATIO 0.95 (1.1-2.4); ALCOHOL, MEDICAL <3 ng/dL (<3); ALKALINE PHOSPHATASE 79 U/L (46-116); ALT (SGPT) 16 U/L (14-59); ANION GAP 14.9 (7-21); AST (SGOT) 13 U/L (15-37); BILIRUBIN, TOTAL 0.3 ng/dL (0.2-1.0); BUN/CREATININE RATIO 21.42 (6.0-28.6); CARBON DIOXIDE 26 mmol/L (21-32); CHLORIDE 103 mmol/L (98-107); CREATININE, SERUM 0.98 mg/dL (0.70-1.30); GLOMERULAR FILTRATION RATE,EST 100 mL/min (>60); POTASSIUM 3.9 mmol/L (3.5-5.1); PROTEIN, TOTAL 7.2 g/dL (6.4-8.2); SALICYLATE 2.1 mg/dL (2.8-20.0); TSH, 3RD GENERATION 0.517 uIU/mL (0.358-3.740); UREA NITROGEN 21 mg/dL (7-18)
[2024-08-15] MEDS ORDERED: LEXAPRO10 MG PO (17:18)
[2024-08-15] MEDS ORDERED: ZYPREXA5 MG PO (17:19)
[2024-08-15] MEDS ORDERED: DEPAKOTE500 MG PO (17:19)
[2024-08-15 17:31] LABS: AMPHETAMINES, URINE POSITIVE (NEGATIVE); BARBITURATES, URINE NEGATIVE (NEGATIVE); BENZODIAZEPINE, URINE NEGATIVE (NEGATIVE); BUPRENORPHINE, URINE NEGATIVE (NEGATIVE); CANNABINOID, URINE POSITIVE (NEGATIVE); COCAINE, URINE NEGATIVE (NEGATIVE); ECSTASY, URINE NEGATIVE (NEGATIVE); FENTANYL, URINE NEGATIVE (NEGATIVE); METHADONE, URINE NEGATIVE (NEGATIVE); OPIATES, URINE NEGATIVE (NEGATIVE); OXYCODONE, URINE NEGATIVE (NEGATIVE); PHENCYCLIDINE, URINE NEGATIVE (NEGATIVE)
[2024-08-16] MEDS ORDERED: NICOTINE POLACRILEX 4 MG LOZENGE BUCCAL PRN (20:30)
[2024-08-16] MEDS ORDERED: OLANZapine 10 MG TABDIS PO ONE (21:00)
[2024-08-17 12:33] VITALS: BP 113/88
--- NOTE | 2024-08-17 20:19 | EKG ---
[facility] [address] [facility] [place], [place] [address] Signed Sinus bradycardia Otherwise normal ECG When compared with ECG of 06-JAN-2024 20:46, No significant change was found Confirmed by Eleazar Botello MD ([id number]) on 08/17/2024 8:18:54 PM Electronically Signed By: ELEAZAR BOTELLO MD 08/17/24 2019 PATIENT NAME: NORMA BECERRA JACKIE Electrocardiogram DATE OF : 83 PHYSICIAN: ELEAZAR BOTELLO MD REPORT #: [id number] REPORT IS CONFIDENTIAL AND NOT TO BE RELEASED WITHOUT AUTHORIZATION
[2024-08-17] MEDS ORDERED: OLANZapine 10 MG TAB PO SCH (21:00)
== END 2024-08-17 12:33 | disposition short-term general hospital (02) ==
LOC: ED 15:06
PROVIDERS: Emergency Medicine
DX: R45.851 Suicidal ideations (principal); F10.10 Alcohol abuse, uncomplicated; Z04.6 Encounter for general psychiatric examination, requested by authority; Z79.899 Other long term (current) drug therapy; Z88.0 Allergy status to penicillin; Z88.1 Allergy status to other antibiotic agents; Z88.5 Allergy status to narcotic agent; Z87.891 Personal history of nicotine dependence
CPT/HCPCS: 36415; 80053; 80307; 81001; 84443; 85025; 93005; 93010; 99285; A9270; G0480; U0002

== ENCOUNTER 2024-10-13 13:06 | Emergency (ER) | payer OTHER ==
[~2024-10-13] VITALS: Ht 180.3 cm; Wt 94.8 kg
[~2024-10-13 13:06] MED LIST changes: +DEPAKOTE500 MG PO; +LEXAPRO10 MG PO
[2024-10-13 13:22] LABS: BASOPHILS 0.6 % (0-2); EOSINOPHILS 3.9 % (0-6); HEMATOCRIT 44.6 % (35.0-50.0); LYMPHOCYTES 15.6 % (24-44); MCH 28.1 (27-36); MCHC 33.8 g/dl (30-36); MCV 83.2 fl (81-99); MONOCYTES 8.1 % (0-12); NEUTROPHILS 71.8 % (39-80); PLATELET COUNT 340 K/uL (140-440); RBC 5.36 M/ul (4.3-5.7); RDW 16.2 (10.5-15.0)
[2024-10-13] MEDS ORDERED: SODIUM CHLORIDE 0.9% 1,000 ML IV ONE (13:30)
[2024-10-13 13:41] LABS: ACETAMINOPHEN 0 ug/mL (10-30); ALBUMIN 3.5 g/dL (3.4-5.0); ALCOHOL, MEDICAL <3 ng/dL (<3); ALKALINE PHOSPHATASE 67 U/L (46-116); ALT (SGPT) 25 U/L (14-59); ANION GAP 11.2 (7-21); AST (SGOT) 32 U/L (15-37); BILIRUBIN, TOTAL 0.9 mg/dL (0.2-1.0); BUN/CREATININE RATIO 13.55 (6.0-28.6); CALCIUM 9.4 mg/dL (8.5-10.1); CARBON DIOXIDE 32 mmol/L (21-32); CHLORIDE 105 mmol/L (98-107); CREATININE, SERUM 1.18 mg/dL (0.70-1.30); GLOMERULAR FILTRATION RATE,EST 80 mL/min (>60); POTASSIUM 4.2 mmol/L (3.5-5.1); SALICYLATE 2.1 mg/dL (2.8-20.0); TSH, 3RD GENERATION 0.304 uIU/mL (0.358-3.740); UREA NITROGEN 16 mg/dL (7-18)
[2024-10-13 16:43] LABS: AMPHETAMINES, URINE POSITIVE (NEGATIVE); BARBITURATES, URINE NEGATIVE (NEGATIVE); BENZODIAZEPINE, URINE NEGATIVE (NEGATIVE); BUPRENORPHINE, URINE NEGATIVE (NEGATIVE); CANNABINOID, URINE POSITIVE (NEGATIVE); COCAINE, URINE NEGATIVE (NEGATIVE); ECSTASY, URINE NEGATIVE (NEGATIVE); FENTANYL, URINE NEGATIVE (NEGATIVE); METHADONE, URINE NEGATIVE (NEGATIVE); OPIATES, URINE NEGATIVE (NEGATIVE); OXYCODONE, URINE NEGATIVE (NEGATIVE); PHENCYCLIDINE, URINE NEGATIVE (NEGATIVE)
[2024-10-13 18:46] LABS: CORONAVIRUS COVID-19 AG NEGATIVE (NEGATIVE); INFLUENZA A AG NEGATIVE (NEGATIVE); INFLUENZA B AG NEGATIVE (NEGATIVE)
--- NOTE | 2024-10-13 19:34 | EKG ---
[facility] [address] [facility] [place] [address] Signed Normal sinus rhythm Normal ECG When compared with ECG of 16-AUG-2024 06:54, No significant change was found Confirmed by Eleazar Botello MD ([id number]) on 10/13/2024 7:33:52 PM Electronically Signed By: ELEAZAR BOTELLO MD 10/13/241933 PATIENT NAME: NORMA BECERRA JACKIE Electrocardiogram DATE OF : 83 PHYSICIAN: ELEAZAR BOTELLO MD REPORT #: [id number] REPORT IS CONFIDENTIAL AND NOT TO BE RELEASED WITHOUT AUTHORIZATION
[2024-10-14 10:08] VITALS: BP 147/86
== END 2024-10-14 10:10 ==
LOC: ED 13:06
PROVIDERS: Emergency Medicine
DX: T43.592A Poisoning by other antipsychotics and neuroleptics, intentional self-harm, initial encounter (principal); R07.89 Other chest pain; F32.A Depression, unspecified; Z87.891 Personal history of nicotine dependence; Z88.0 Allergy status to penicillin; Z88.1 Allergy status to other antibiotic agents; Z88.5 Allergy status to narcotic agent; Z79.899 Other long term (current) drug therapy
CPT/HCPCS: 36415; 80053; 80307; 84443; 84484; 85025; 93005; 93010; 96360; 96361; 99285; G0480; J7030

== ENCOUNTER 2025-02-19 22:17 | Emergency (ER) | payer OTHER ==
[~2025-02-19] VITALS: Ht 180.3 cm; Wt 94.8 kg
[2025-02-19 22:51] LABS: BASOPHILS 0.8 % (0.2-1.2); EOSINOPHILS 1.7 % (0.8-7.0); HEMATOCRIT 43.1 % (40.1-51.0); MCH 27.7 PG (25.7-32.2); MCHC 32.5 g/dL (32.3-36.5); MCV 85.3 fL (79.0-92.2); MONOCYTES 7.1 % (5.3-12.2); PLATELET COUNT 338 K/uL (163-337); RBC 5.05 M/uL (4.63-6.08)
[2025-02-19 23:15] LABS: ACETAMINOPHEN 0 ug/mL (10-30); ALCOHOL, MEDICAL <3 ng/dL (<3); ALKALINE PHOSPHATASE 79 U/L (46-116); ALT (SGPT) 25 U/L (14-59); ANION GAP 14.7 (7-21); AST (SGOT) 16 U/L (15-37); BILIRUBIN, TOTAL 1.3 mg/dL (0.2-1.0); BUN/CREATININE RATIO 10.37 (6.0-28.6); CALCIUM 8.7 mg/dL (8.5-10.1); CARBON DIOXIDE 29 mmol/L (21-32); CHLORIDE 102 mmol/L (98-107); CREATININE, SERUM 1.35 mg/dL (0.70-1.30); GLOMERULAR FILTRATION RATE,EST 68 mL/min (>60); POTASSIUM 3.7 mmol/L (3.5-5.1); SALICYLATE 0.6 mg/dL (2.8-20.0); TSH, 3RD GENERATION 0.485 uIU/mL (0.358-3.740); UREA NITROGEN 14 mg/dL (7-18)
[2025-02-19 23:37] LABS: AMPHETAMINES, URINE POSITIVE (NEGATIVE); BARBITURATES, URINE NEGATIVE (NEGATIVE); BENZODIAZEPINE, URINE NEGATIVE (NEGATIVE); BUPRENORPHINE, URINE NEGATIVE (NEGATIVE); CANNABINOID, URINE POSITIVE (NEGATIVE); COCAINE, URINE NEGATIVE (NEGATIVE); ECSTASY, URINE POSITIVE (NEGATIVE); FENTANYL, URINE NEGATIVE (NEGATIVE); METHADONE, URINE NEGATIVE (NEGATIVE); OPIATES, URINE NEGATIVE (NEGATIVE); OXYCODONE, URINE NEGATIVE (NEGATIVE); PHENCYCLIDINE, URINE NEGATIVE (NEGATIVE)
[2025-02-20] MEDS ORDERED: HYDROXYZINE HCL25 MG PO (00:10)
[2025-02-20] MEDS ORDERED: hydrOXYzine pamoate 50 MG CAP PO ONE (00:15)
[2025-02-20 00:22] VITALS: BP 145/89
== END 2025-02-20 00:23 | disposition home or self-care (01) ==
LOC: ED 22:17
PROVIDERS: Internal Medicine
DX: F15.959 Other stimulant use, unspecified with stimulant-induced psychotic disorder, unspecified (principal); F12.90 Cannabis use, unspecified, uncomplicated; Z87.891 Personal history of nicotine dependence; Z88.0 Allergy status to penicillin; Z88.1 Allergy status to other antibiotic agents; Z79.899 Other long term (current) drug therapy
CPT/HCPCS: 36415; 80053; 80307; 84443; 85025; 99283; G0480